=== PATIENT | female | born 1935 | race Caucasian/White ===

== ENCOUNTER 2016-06-25 | Outpatient (CLI) | payer MEDICARE, OTHER | END 2016-06-25 10:46 | disposition home or self-care (01) ==

== ENCOUNTER 2016-07-30 12:44 | Outpatient (CLI) | payer MEDICARE, OTHER | END 2016-07-30 12:45 | disposition home or self-care (01) | DX: M05.79 Rheumatoid arthritis with rheumatoid factor of multiple sites without organ or systems involvement (principal) ==

== ENCOUNTER 2016-09-02 14:00 | Outpatient (CLI) | payer MEDICARE, OTHER | END 2016-09-02 14:01 | disposition home or self-care (01) | DX: G30.9 Alzheimer's disease, unspecified (principal); G31.83 Neurocognitive disorder with Lewy bodies; F02.81 Dementia in other diseases classified elsewhere, unspecified severity, with behavioral disturbance; F05 Delirium due to known physiological condition; T38.0X5A Adverse effect of glucocorticoids and synthetic analogues, initial encounter; M06.9 Rheumatoid arthritis, unspecified; F41.9 Anxiety disorder, unspecified; Z79.899 Other long term (current) drug therapy; Z66 Do not resuscitate; Z91.81 History of falling; Z51.5 Encounter for palliative care ==

== ENCOUNTER 2016-11-14 11:30 | Outpatient (CLI) | payer MEDICARE, OTHER ==
--- NOTE | 2016-11-18 06:44 | CONSULTATION NOTE ---
DATE OF CONSULTATION: 11/14/2016 00:00:00 REQUESTING PROVIDER: Gregoria Gutiérrez MD TIME OF VISIT: 11:30-12 noon. TOPIC: Followup palliative care consult. Thank you, Dr. Gutiérrez, for asking the Palliative Care Consult Service to be involved in the care of y our patient. I am seeing this patient for a focused visit regarding patient's increased pain, most li roberto as an exacerbation of her RA, which is adding to her concern for safety risk and for her comfort . She is seen in her home setting at [facility] to better evaluate the situ ation. EXAM LIMITATIONS: The patient has severe short-term memory issues secondary to dementia. BRIEF HISTORY OF PRESENT ILLNESS: This is a 81-year-old woman who has had increasing cognitive declin e, diagnosed with dementia, severe anxiety, paranoia behavior and intermittent hallucinations. She w as most recently in August increased on her Seroquel by 25%; she is currently on 50 at 2 tabs b.i.d. C ontinues to have concern about her behaviors but somewhat improved. She has had increasing difficulty , though, with an escalation in pain. The patient is unable to really describe or participate in pain assessment, other than she is much more uncomfortable than when I have seen her before. It is hard f or her to get sitting to standing, she needs assistance. She has limited her activities because of he r pain, and this has happened before with a flare. She is due for her infliximab on 11/27/2016, so un clear if it is wearing off, or if she has, indeed, had an exacerbation. The patient is quite tender t o palpation over joints, particularly over her knees. She does have mobility of her upper arms. Her h ands are tender to touch as well. My understanding is she has had her dose recently increased. She do es have an effusion on her right hand in the first and second metatarsal. She remains on her methotre xate. ALLERGIES: NONE. CURRENT MEDICATIONS 1. Folic acid 1 mg daily. 2. Centrum Silver 1 tab daily. 3. Methotrexate 2.5 mg 4 tablets weekly. 4. Aspirin 81 mg daily. 5. Namenda 5 mg daily. 6. Zocor 10 mg at bedtime. 7. Levothyroxine 150 mcg daily. 8. Metoprolol tartrate 25 mg half tab b.i.d. 9. Alprazolam 0.5 mg 1 tab twice a day as needed for anxiety for a maximum of 4 tabs a day. 10. Seroquel 50 mg 2 tabs b.i.d. 0800 and 1500 hours. 11. Tylenol 325 mg 2 tabs t.i.d. as needed for pain. 12. Senna 8.6 mg 1 tab twice daily, hold for loose stools. 13. Imodium 2 mg tab after each loose stool up to 8 mg mass. 14. Ondansetron 4 mg ODT 1 tablet q.6 hours p.r.n. CODE STATUS: Patient is a DO NOT ATTEMPT RESUSCITATION, LIMITED INTERVENTIONS, DETERMINE THE USE OF A NTIBIOTICS WITH COMFORT THE GOAL, AND NO MEDICALLY ASSISTED NUTRITION. BRIEF SOCIAL HISTORY: The patient does live in an adult family home with her , who is 89 years old. She is there under [employer]. Her son checks on her a couple times a week. She does very much enjoy his visits, as well as her new grandchild. 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 She reports she always enjoys being useful and finds it quite difficult to be still. PERFORMANCE STATUS: The patient is unable to get from sitting to standing. Her gait is quite slow and labored. She has not had any recent falls, but she does need maximum assist. She is able to self-fee d. I would put her actually today at a palliative care performance status of 60%. REVIEW OF SYSTEMS This is limited. HEENT: She has mild hearing loss; wears glasses. CARDIOVASCULAR: Denies chest pain. RESPIRATORY: Denies shortness of breath. GASTROINTESTINAL: No history of constipation or diarrhea. GENITOURINARY: Occasional urinary incontinence. MUSCULOSKELETAL: As noted above. INTEGUMENTARY: No reported skin breakdown. NEUROLOGIC: Intermittent tremors. PSYCHIATRIC: She does still continue with intermittent paranoia. ENDOCRINE: Hypothyroidism. HEMATOLOGIC/IMMUNOLOGIC: No recent labs. PHYSICAL EXAMINATION GENERAL APPEARANCE: She is quite pale. She is able to interact, but she does have some wincing. HEENT: Her eyes appear normal on inspection, though slight periorbital edema. NECK: Trachea is midline. No JVD. RESPIRATORY: Breath sounds are clear. CARDIOVASCULAR: Her temperature is 96, O2 saturation is at 95% on room air, her pulse is elevated at 107, her blood pressure is 120/62. Her current weight is 167. ABDOMEN: Rounded, soft, nontender to palpation. SKIN: No reported signs or symptoms of skin breakdown. EXTREMITIES: As noted above, she does have some tenderness and effusion in her right hand. Her knees are tender to palpation as well. She does have difficulty with weightbearing. PALLIATIVE CARE DISCUSSION: I did follow up with the son in discussing weighing the benefits and minerva ens regarding his mother's discomfort. We are coming into a holiday weekend. I am quite hesitant to o rder the prednisone, given her pending Remicade infusion, so I did ask that he follow up and get her an appointment to see about a prednisone burst. In the meantime, we did agree for a temporary measure to put her on scheduled Tylenol, as well as have some hydrocodone a 1/2 tab every 6 hours as needed for breakthrough pain. This was an acceptable compromise, given the timing of this exacerbation. IMPRESSION: This is a 81-year-old woman who presents with mixed dementia in the context of her rapid decline, paranoid hallucinations and increased anxiety could be attributed to Lewy body as well as Al zheimer's. She continues to be a FAST 6c. Today she presents with an exacerbation of her rheumatoid a rthritis and uncontrolled pain. RECOMMENDATIONS/COUNSELING DONE 1. Dementia with behavioral disturbances. Her current regimen has been recently increased to Seroquel 50 mg 2 tabs b.i.d. She is having some anxiety and increased symptoms with her increased pain but n othing acute. 2. Pain secondary to rheumatoid arthritis flare. The Voltaren gel does help at times. She is quite co mfortable at rest but is much less active because of the pain. We will go ahead and schedule her, girish valencia she really is unable to ask for pain medication given her underlying dementia, acetaminophen 325 mg 2 tabs t.i.d., and provided a prescription for hydrocodone 5 mg/325 mg 1/2 tab every 6 hours as n eeded for severe breakthrough pain. Thank you, Dr. Gutiérrez, for asking the Palliative Care Consult Service to be involved with your patien t. I will follow up for a regular visit in a few weeks, but currently addressing her acute symptoms n eeds. Time spent 30 minutes, with greater than 50% of this done in counseling and coordination of care with the adult family home box truck owner operator, patient's son, and patient's plan of care. JOB #: [id number] EXT JOB #:[id number]
== END 2016-11-14 11:31 | disposition home or self-care (01) ==
LOC: PC 11:30
PROVIDERS: ATTEND Nurse Practitioner Adult Health
DX: Z51.5 Encounter for palliative care (principal); M06.9 Rheumatoid arthritis, unspecified; G30.9 Alzheimer's disease, unspecified; F02.81 Dementia in other diseases classified elsewhere, unspecified severity, with behavioral disturbance; Z79.899 Other long term (current) drug therapy; Z79.82 Long term (current) use of aspirin; Z66 Do not resuscitate

== ENCOUNTER 2017-03-03 13:00 | Outpatient (CLI) | payer MEDICARE, OTHER ==
--- NOTE | 2017-03-03 17:05 | PROVIDER PROGRESS NOTE ---
Palliative Care Follow Up - Referral Referring Provider: Gregoria Gutiérrez MD Time of Visit: 12:30 Referral setting: Home (Seen in home setting due to taxing and considerable effort required to leave the home secondary to impaired mobility related to severe pain in R knee from rheumatoid arthritis.) - Information Sources History obtained from: Patient, Caregiver Exam limitations: Clinical condition (dementia: confabulation) - History of Present Illness Update Brief HPI Update: This is an 82-year-old woman with dementia, anxiety, paranoia behavior and intermittent hallucinations. She is currently on Seroquel dosing of 100mg BID for the past six months. Timing was altered to 12:00pm and 6:00pm due to her becoming sleepy too early in the day. She often becomes agitated around 2-3pm and is being given alprazolam 0.25mg, which alleviates the behaviors. Apart from that, she has been stable and her only complaint is the pain in her R knee, which she says isnt constant, and is not currently painful. It can bother her when she ambulates, which she does independently, very slowly, with the walker. She reports that she sleeps beautifully and she also eats well. Caretaking staff reports that she repeatedly tries to go to bed throughout the day, and also tries to have her go to bed inappropriately early too. She can be confused about where she is and whether it is dark outside She is very social and interactive, does confabulate and repeats herself. She recognizes that she forgets things. She continues to receive Remicade ( infliximab) infusions every 6 weeks for rheumatoid arthritis. Information obtained from patient, caretaking staff at [facility], and EMR chart notes from [facility]. Social History - Living Situation Living arrangement: jail ([facility] in [place]) Living Situation: With spouse/s.o. (Her spouse lives in the same adult family home with her), With caregiver(s) Support System: Her son lives nearby. Medications/Allergies - Medications Home Medications: Ambulatory Orders Medication Instructions Recorded Confirmed Folic Acid 1 mg PO DAILY 10/26/14 03/03/17 Levothyroxine [Synthroid] 150 mcg PO DAILY 10/26/14 03/03/17 Methotrexate 6 tab PO Q7D 10/26/14 03/03/17 Simvastatin 10 mg PO QPM 10/26/14 03/03/17 Acetaminophen [Pain Relief] 625 mg ORAL TID PRN 01/18/15 03/03/17 Multivit-Min/FA/Lycopen/Lutein 1 tab ORAL DAILY 01/18/15 03/03/17 [Centrum Silver Tablet] Aspirin [Low Dose Aspirin EC] 81 mg PO DAILY 04/12/15 03/03/17 Memantine HCl [Namenda] 5 mg PO DAILY 04/12/15 03/03/17 Metoprolol Tartrate 12.5 mg PO BID 04/12/15 03/03/17 ALPRAZolam [Xanax] 0.25 mg PO BID MDD 4 tabs 08/16/15 03/03/17 Diclofenac Sodium [Voltaren] 4 gm PO QID PRN 03/03/17 03/03/17 HYDROcod/ACETAM 5/325 [[place] 5/325] 1 tab PO Q6H PRN 03/03/17 03/03/17 Ondansetron [Zuplenz] 4 mg PO Q6H PRN 03/03/17 03/03/17 Senna [Senokot] 8.6 mg PO BID 03/03/17 03/03/17 - Allergies Allergies/Adverse Reactions: Allergies Allergy/AdvReac Type Severity Reaction Status Date / Time ketamine AdvReac Unknown Verified 10/26/14 16:44 Review of Systems - Cardiovascular Cariovascular: denies: Chest pain, Exertional dyspnea - Respiratory Respiratory: denies: SOB at rest, SOB with exertion - Gastrointestinal Gastrointestinal: denies: Abdominal pain, Constipation, Nausea - Genitourinary Genitourinary: denies: Dysuria - Musculoskeletal Musculoskeletal: reports: Joint swelling (R knee) - Neurological Neurological: reports: Memory problems - Psychiatric Psychiatric: reports: Anxiety (reported by staff; denied by patient) Physical Examination - Vital Signs Temperature: 98.1 C Pulse Rate: 79 O2 Saturation: 99 Blood Pressure: 137/75 - Physical Exam General Appearance: positive: No acute distress, Alert Eyes Bilateral: positive: EOMI, No lid inflammation, Conjunctivae nml, No scleral icterus Neck: positive: No JVD, Trachea midline Respiratory: positive: Chest non-tender, No respiratory distress, Breath sounds nml Cardiovascular: positive: Regular rate & rhythm, No murmur Skin: positive: No symptoms Extremities: positive: No pedal edema, Other (Non-weight bearing on R leg) Neurologic/Psychiatric: positive: Sensation nml, Mood/affect nml, Disoriented to place, Disoriented to time Palliative Care - POLST Patient has POLST: Yes POLST Status: DNR, Limited Interventions Pain: Location (R knee, worse with movement) Drowsiness: None Nausea: None Anxiety: Mild (1-3) Dyspnea: None Anorexia: None Insomnia: Sleeps well Constipation: No Feelings of wellbeing/Perceived Quality of Life: Comment (Perceives she has a good quality of life here. Happy to be with her .) Performance Status: Current level of functioning: Able to [id number], ambulatory with walker, very slow gait, [id number] on R leg. Some increased anxiety often in late afternoons, which is alleviated with alprazolam 0.25mg as needed. She feeds herself, and requires help with bathing. Palliative Care Performance Status: 60% - Palliative Care Discussion: Who is present: The patient and myself. Nurse incubator operator was nearby Surrogate decision maker: Son/DPOA Mundo Pichardo [phone] Patient/Family understanding of the illness: Patient lacking full understanding of her dementia but does admit I forget things. Her son has an appropriate understanding and insight into her dementia. Most important goals: Focus on comfort and remaining together with her . 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 Encouraged patient to ask for pain medication when her knee is in pain. Will continue anxiety medication (alprazolam) as needed and not routine because, even though its administered more days than not, she doesn't need it daily, and the low dose does help sufficiently. Dont increase Seroquel because higher doses in the past increased her drowsiness. Impression and Recommendations - Palliative Care Impression: This is a pleasant 82-year-old woman who has dementia with behavior disturbances that are alleviated with Seroquel twice daily and alprazolam as needed. Her RA is adequately controlled with infliximab infusions, methotrexate and as needed [place] and Tylenol. Recommendations/Counseling Done: 1. Dementia with behaviors: Continue on Namenda and Seroquel 100mg BID at 12: 00 and 6:00pm. Seroquel dosage had been decreased 6 months ago due to drowsiness , so will not consider increasing it at this time for agitation episodes. 2. Anxiety: Using alprazolam around 2-3pm most days. Will keep it PRN and not routine because she is not needing it daily. 3. Rheumatoid arthritis: Remicade infusions every 6 weeks, next session . [place], Tylenol and Voltaren gel as needed for R knee pain. Time Spent: 30 minutes with greater than 50% of this done in counseling and coordination of care, weighing benefits and burdens of Seroquel and alprazolam dosing and timing.
== END 2017-03-03 13:01 | disposition home or self-care (01) ==
LOC: PC 13:00
PROVIDERS: ATTEND Nurse Practitioner
DX: Z51.5 Encounter for palliative care (principal); G30.9 Alzheimer's disease, unspecified; F02.81 Dementia in other diseases classified elsewhere, unspecified severity, with behavioral disturbance; F41.9 Anxiety disorder, unspecified; M06.9 Rheumatoid arthritis, unspecified; Z79.899 Other long term (current) drug therapy; Z66 Do not resuscitate
CPT/HCPCS: 99348

== ENCOUNTER 2017-08-06 08:00 | Outpatient (CLI) | payer MEDICARE, OTHER, MEDICAID ==
[2017-08-06 18:26] LABS: BILIRUBIN,URINE NEGATIVE (NEGATIVE); GLUCOSE, URINE (UA) NEGATIVE (NEGATIVE); KETONES,URINE (UA) NEGATIVE (NEGATIVE); LEUKOCYTE ESTERASE, URINE LARGE (NEGATIVE); NITRITE,URINE POSITIVE (NEGATIVE); OCCULT BLOOD,URINE SMALL (NEGATIVE); PROTEIN,URINE 100 mg/dL (NEGATIVE); UROBILINOGEN,URINE 0.2 (NORMAL) E.U./dL (NORMAL)
[2017-08-06 18:35] LABS: CLARITY,URINE CLOUDY (CLEAR)
[2017-08-06 18:36] LABS: BACTERIA,URINE Many /HPF (None Seen); RBC,URINE TNTC /HPF (0-5); SQUAMOUS EPITHELIAL CELL,UR RARE Squamous (<= Few)
== END 2017-08-06 08:01 | disposition home or self-care (01) ==
LOC: LAB.R 08:00
PROVIDERS: ATTEND Nurse Practitioner
DX: N39.0 Urinary tract infection, site not specified (principal)
CPT/HCPCS: 81001; 81003; 87086

== ENCOUNTER 2017-08-06 12:50 | Outpatient (CLI) | payer MEDICARE, OTHER, MEDICAID ==
--- NOTE | 2017-08-06 17:37 | CONSULTATION NOTE ---
Palliative Care Follow Up - Referral Referring Provider: Dr Gutiérrez Time of Visit: 08/06/2017. 12:50 - 13:05 Referral setting: Adult Family Home (Seen in home setting due to taxing and considerable effort required to leave the home secondary to advanced dementia.) - Information Sources Records reviewed: Previous records reviewed History/Review of Systems obtained from: Patient, Family, Caregiver Exam limitations: Clinical condition (Advanced dementia) - History of Present Illness Update Brief HPI Update: This is an 82-year-old woman with dementia, anxiety, paranoia behavior and intermittent hallucinations. She hasa h/o UTIs. She continues to enjoy relatively good physical health apart from her advanced dementia. She is articulate and sociable, always very pleasant, friendly, and cooperative during my assessment visits. She lives in the adult family home with her who has very advanced, end-stage Alzheimer's dementia and he is in the process of being transitioned into Hospice. She is always very aware of his presence and does speak of him during my assessments. Today the care-giving staff has reported strong smelling and dark colored urine with sediment. A clean catch urine sample was collected by the secretary to the vice president of the [facility] in a "hat" provided by palliative care and submitted for UA with C&S if indicated. The resident has a h/o UTIs, and was treated with empiric ciprofloxacin last April for a suspected UTI, with similar symptoms: dark odorous urine, urinary frequency, increased confusion. The resident has otherwise been very stable, with no behavioral or psychological issues. She has a good appetite, regular bowel movements, and reports she "sleeps like a log." Social History - Living Situation Living arrangement: Adult family home ([facility] in [place]) Living Situation: With spouse/s.o. (Spouse is also at the same [facility]), With caregiver(s) Support System: Son lives nearby. Medications/Allergies - Medications Home Medications: Ambulatory Orders Medication Instructions Recorded Confirmed Folic Acid 1 mg PO DAILY 10/26/14 06/26/17 Levothyroxine [Synthroid] 150 mcg PO DAILY 10/26/14 06/26/17 Methotrexate 6 tab PO Q7D 10/26/14 06/26/17 Simvastatin 10 mg PO QPM 10/26/14 06/26/17 Acetaminophen [Pain Relief] 625 mg ORAL TID PRN 01/18/15 06/26/17 Multivit-Min/FA/Lycopen/Lutein 1 tab ORAL DAILY 01/18/15 06/26/17 [Centrum Silver Tablet] Aspirin [Low Dose Aspirin EC] 81 mg PO DAILY 04/12/15 06/26/17 Memantine HCl [Namenda] 5 mg PO DAILY 04/12/15 06/26/17 Metoprolol Tartrate 12.5 mg PO BID 04/12/15 06/26/17 ALPRAZolam [Xanax] 0.5 mg PO BID PRN MDD 4 tabs 08/16/15 06/26/17 Diclofenac Sodium [Voltaren] 4 gm PO QID PRN 03/03/17 06/26/17 HYDROcod/ACETAM 5/325 [[place] 5/325] 1 tab PO Q6H PRN 03/03/17 06/26/17 Ondansetron [Zuplenz] 4 mg PO Q6H PRN 03/03/17 06/26/17 Senna [Senokot] 8.6 mg PO BID 03/03/17 06/26/17 Ciprofloxacin [Cipro] 500 mg PO BID MDD for 5 days only 05/07/17 06/26/17 Lactobacillus Acidophilus 1 each PO BID MDD for 21 days only 05/07/17 06/26/17 [Probiotic Acidophilus] - Allergies Allergies/Adverse Reactions: Allergies Allergy/AdvReac Type Severity Reaction Status Date / Time ketamine AdvReac Unknown Verified 10/26/14 16:44 Review of Systems - Constitutional Constitutional: reports: Weight stable. denies: Fatigue, Fever, Poor appetite - Cardiovascular Cardiovascular: denies: Chest pain, Edema, Exertional dyspnea, Decr. exercise tolerance - Respiratory Respiratory: denies: Cough, SOB at rest, SOB with exertion - Gastrointestinal Gastrointestinal: denies: Constipation, Diarrhea - Genitourinary Genitourinary: reports: Other (dark, odorous urine with sediment). denies: Dysuria - Musculoskeletal Musculoskeletal: denies: Transfer issues - Neurological Neurological: reports: Memory problems - Psychiatric Psychiatric: denies: Aggitation, Behavior disturbances - Endocrine Endocrine: reports: Hypothyroidism Physical Exam - Vital Signs Temperature: 97.8 F Pulse Rate: 65 O2 Saturation: 99 Blood Pressure: 127/90 - Physical Exam General Appearance: positive: No acute distress, Alert Eyes Bilateral: positive: Normal inspection ENT: positive: No signs of dehydration Neck: positive: No JVD, Trachea midline Cardiovascular: positive: Regular rate & rhythm, No murmur, No gallop Respiratory: positive: Chest non-tender, No respiratory distress, Other ( diminished in left lower lobe). negative: Rales Skin: positive: No symptoms Neurologic/Psychiatric: positive: Mood/affect nml. negative: Disoriented to place, Disoriented to time Palliative Care - POLST Patient has POLST: Yes POLST Status: DNR, Selective Treatment Pain: No pain Tiredness/Fatigue: None Drowsiness/Sedation: None Nausea: None Anxiety: None Anorexia: None Sleep: Sleeps well Constipation: No Feelings of wellbeing/Perceived Quality of Life: Good - Palliative Care Discussion: The patient reports she is feeling well and feels her quality of life is good here. I spoke to her son about the suspected UTI and he was in agreement with a urinary analysis and treating with antibiotics as indicated. The goal of care remains comfort focused and keeping the patient with her , who also resides at the [facility]. Unfortunately, his status has been declining and he will be transitioning to Hospice. This will likely initiate a complicated dynamic for the care givers, as well as the hospice team caring for the patient's , and by extension, her too, as his family. Impression and Recommendations - Palliative Care Impression: This is a pleasant 82-year-old woman with dementia with a history of behavior disturbance, currently stable and at baseline. She gives signs of a urinary tract infection and a UA w/C&s has been ordered. Also she is at risk for upset and grief as her , who lives in the [facility] with her and has been steadily declining in functionality and health, transitions into hospice and the end-of- life journey. Recommendations/Counseling Done: Dementia with h/o behaviors: Stable, with no behaviors. Continue memantine daily. Anxiety: Stable, at baseline. Continue alprazolam as needed. Abnormal urine: Clean catch taken, ordered UA with C&S if indicated. Have not started empiric antibiotics. Wait for culture results. Advanced care planning: POLST in place: DNR and selected. Focus is on comfort. Provide added support and monitoring since her is declining and transitioning into hospice and end-of-life. Time Spent: 15 minutes were spent with more than 50% of the time spent on counseling, education, and coordination of care.
== END 2017-08-06 12:51 | disposition home or self-care (01) ==
LOC: PC 12:50
PROVIDERS: ATTEND Nurse Practitioner
DX: Z51.5 Encounter for palliative care (principal); F03.91 Unspecified dementia, unspecified severity, with behavioral disturbance; F41.9 Anxiety disorder, unspecified; Z87.440 Personal history of urinary (tract) infections; Z79.82 Long term (current) use of aspirin; Z79.891 Long term (current) use of opiate analgesic; Z66 Do not resuscitate

== ENCOUNTER 2017-09-02 18:53 | Inpatient (IN) | payer MEDICARE, OTHER, MEDICAID ==
[~2017-09-02 18:53] MED LIST: METHOTREXATE 2.5 MG TABLET PO SCH
[2017-09-02] MEDS ORDERED: SODIUM CHLORIDE 0.9% 1,000 ML IV ONE (19:25)
[2017-09-02] MEDS ORDERED: cefTRIAXone 1 GM in SODIUM CHLORIDE 0.9% MINIBAG 100 ML IV STA (19:25)
[2017-09-02] MEDS ORDERED: ACETAMINOPHEN 325 MG TABLET PO STA (19:27)
--- NOTE | 2017-09-02 19:27 | ED Physician Documentation ---
History of Present Illness - Stated complaint Stated Complaint: SZ - Chief complaint Chief Complaint: General - History obtained from History obtained from: Patient, Family (son), EMS - History of Present Illness Timing: Other (Most of the history is from the son, she has been for sick for 3 days with increasing chills. I guess they thought might be seizure activity but it sounds more like just Rigors because she is awake during them saying she is cold. 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 - Present Medications Home Medications: Ambulatory Orders Medication Instructions Recorded Confirmed Folic Acid 1 mg PO DAILY 10/26/14 06/26/17 Levothyroxine [Synthroid] 150 mcg PO DAILY 10/26/14 06/26/17 Methotrexate 6 tab PO Q7D 10/26/14 06/26/17 Simvastatin 10 mg PO QPM 10/26/14 06/26/17 Acetaminophen [Pain Relief] 625 mg ORAL TID PRN 01/18/15 06/26/17 Multivit-Min/FA/Lycopen/Lutein 1 tab ORAL DAILY 01/18/15 06/26/17 [Centrum Silver Tablet] Aspirin [Low Dose Aspirin EC] 81 mg PO DAILY 04/12/15 06/26/17 Memantine HCl [Namenda] 5 mg PO DAILY 04/12/15 06/26/17 Metoprolol Tartrate 12.5 mg PO BID 04/12/15 06/26/17 ALPRAZolam [Xanax] 0.5 mg PO BID PRN MDD 4 tabs 08/16/15 06/26/17 Diclofenac Sodium [Voltaren] 4 gm PO QID PRN 03/03/17 06/26/17 HYDROcod/ACETAM 5/325 [[place] 5/325] 1 tab PO Q6H PRN 03/03/17 06/26/17 Ondansetron [Zuplenz] 4 mg PO Q6H PRN 03/03/17 06/26/17 Senna [Senokot] 8.6 mg PO BID 03/03/17 06/26/17 Ciprofloxacin [Cipro] 500 mg PO BID MDD for 5 days only 05/07/17 06/26/17 Lactobacillus Acidophilus 1 each PO BID MDD for 21 days only 05/07/17 06/26/17 [Probiotic Acidophilus] - Allergies Allergies/Adverse Reactions: Allergies Allergy/AdvReac Type Severity Reaction Status Date / Time ketamine AdvReac Unknown Verified 10/26/14 16:44 - POLST Patient has POLST: Yes PD ED PE NORMAL - Vitals Vital signs reviewed: Yes (Febrile, tachycardic, tachypneic) - General General: Other (She is alert cooperative and pleasant but unclear as to why she is here.) - HEENT HEENT: PERRL, EOMI - Neck Neck: Supple, no meningeal sign, No bony TTP - Cardiac Cardiac: RRR, No murmur - Respiratory Respiratory: Other (Tachypneic, diminished at both bases) - Abdomen Abdomen: Soft, Non tender - Back Back: No spinal TTP - Derm Derm: No rash - Extremities Extremities: No edema, No calf tenderness / cord - 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 Eye Opening: Spontaneous Motor: Obeys Commands Verbal: Confused GCS Score: 14 Results - Vitals Vitals: Vital Signs - 24 hr 09/02/17 09/02/17 09/02/17 18:55 20:03 20:46 Temperature 39.2 C H 39 C H 39 C H Heart Rate 114 H 11 L 106 H Respiratory 30 H 23 24 Rate Blood Pressure 139/64 H 147/66 H 138/81 H O2 Saturation 94 100 96 Oxygen O2 Source Room air - EKG (time done) 1857 Rate: Rate (enter#) (118) Rhythm: Sinus tachycardia (with PAC) [place]: Normal Intervals: Normal HI QRS: Normal Ischemia: Q waves (inferior) Computer interpretation: Agree with computer - Labs Labs: Laboratory Tests 09/02/17 09/02/17 09/02/17 19:19 19:19 19:19 WBC 15.4 H RBC 4.13 L Hgb 12.6 Hct 38.3 MCV 92.8 MCH 30.5 MCHC 32.8 RDW 14.5 Plt Count 271 MPV 7.9 Neut # 11.9 H Lymph # 1.8 [place] # 1.6 H Eos # 0.0 Baso # 0.0 Absolute Nucleated RBC 0.01 Nucleated RBC % 0.0 Sodium 133 L Potassium 3.5 Chloride 99 L Carbon Dioxide 22 Anion Gap 12.0 BUN 23 H Creatinine 1.0 Estimated GFR (MDRD) 53 L Glucose 162 H Lactic Acid 1.6 Calcium 8.5 Total Bilirubin 0.7 AST 51 H ALT 54 Alkaline Phosphatase 66 Total Protein 7.6 Albumin 3.3 Globulin 4.3 H Albumin/Globulin Ratio 0.8 L Lipase 14 L Urine Color Urine Clarity Urine pH Ur Specific [place] Urine Protein Urine Glucose (UA) Urine Ketones Urine Occult Blood Urine Nitrite Urine Bilirubin Urine Urobilinogen Ur Leukocyte Esterase Ur Microscopic Review Urine Culture Comments Influenza A (Rapid) Influenza B (Rapid) Influenza Types A,B Ag 09/02/17 09/02/17 19:25 19:40 WBC RBC Hgb Hct MCV MCH MCHC RDW Plt Count MPV Neut # Lymph # [place] # Eos # Baso # Absolute Nucleated RBC Nucleated RBC % Sodium Potassium Chloride Carbon Dioxide Anion Gap BUN Creatinine Estimated GFR (MDRD) Glucose Lactic Acid Calcium Total Bilirubin AST ALT Alkaline Phosphatase Total Protein Albumin Globulin Albumin/Globulin Ratio Lipase Urine Color YELLOW Urine Clarity CLEAR Urine pH 5.0 Ur Specific [place] 1.015 Urine Protein NEGATIVE Urine Glucose (UA) NEGATIVE Urine Ketones NEGATIVE Urine Occult Blood NEGATIVE Urine Nitrite NEGATIVE Urine Bilirubin NEGATIVE Urine Urobilinogen 0.2 (NORMAL) Ur Leukocyte Esterase NEGATIVE Ur Microscopic Review NOT INDICATED Urine Culture Comments NOT INDICATED Influenza A (Rapid) POSITIVE H Influenza B (Rapid) Negative Influenza Types A,B Ag + H - Rads (name of study) 1v chest Radiology: EMP read contemporaneously (When your scarring at the base without acute disease) PD MEDICAL DECISION MAKING - ED course ED course: 82-year-old woman presents with signs of sepsis including high fever, tachycardia and tachypnea. Potential clinical pneumonia but chest x-ray grossly clear. Urine okay. She does have a leukocytosis and a positive influenza swab. I do not think the flu swab in and of itself explains her clinical picture entirety, I suspect there is a brewing occult pneumonia. She was administered rectal Tylenol and oral Tamiflu, IV antibiotics after cultures. Given the potential unstable vital signs she will be admitted for further evaluation and treatment and a call to the hospitalist was placed at 8: 28 PM. Departure - Departure Disposition: [facility] DC/Xfer Clinical Impression: Influenza Sepsis Qualifiers: Sepsis type: sepsis due to unspecified organism Qualified Code(s): A41.9 - Sepsis, unspecified organism Condition: Serious
[2017-09-02 19:30] LABS: BASOPHILS % (AUTO) 0.3 %; EOSINOPHILS % (AUTO) 0.3 %; HGB - HEMOGLOBIN 12.6 g/dL (12.0-16.0); LYMPHOCYTES # (AUTO) 1.8 10^3/uL (1.5-3.5); LYMPHOCYTES % (AUTO) 11.4 %; MEAN CORPUSCULAR HEMOGLOBIN 30.5 pg (27.0-31.0); MEAN CORPUSCULAR HGB CONC 32.8 g/dL (32.0-36.0); MEAN CORPUSCULAR VOLUME 92.8 fL (81.0-99.0); MEAN PLATELET VOLUME 7.9 fL (7.9-10.8); MONOCYTES # (AUTO) 1.6 10^3/uL (0.0-1.0); MONOCYTES % (AUTO) 10.6 %; NEUTROPHILS # (AUTO) 11.9 10^3/uL (1.5-6.6); NEUTROPHILS % (AUTO) 77.4 %; PLT - PLATELET COUNT 271 10^3/uL (130-450); RED BLOOD COUNT 4.13 10^6/uL (4.20-5.40); RED CELL DISTRIBUTION WIDTH 14.5 % (12.0-15.0); WHITE BLOOD COUNT 15.4 x10^3/uL (4.8-10.8)
[2017-09-02 19:45] LABS: ALBUMIN 3.3 g/dL (3.2-5.5); ALBUMIN/GLOBULIN RATIO 0.8 (1.0-2.2); BILIRUBIN,TOTAL 0.7 mg/dL (0.2-1.0); CALCIUM 8.5 mg/dL (8.5-10.3); TOTAL PROTEIN 7.6 g/dL (6.7-8.2)
[2017-09-02] MEDS ORDERED: OSELTAMIVIR 75 MG CAPSULE PO STA (19:51)
[2017-09-02] MEDS ORDERED: ACETAMINOPHEN 650 MG SUPP PR STA (19:51)
[2017-09-02 20:03] LABS: BILIRUBIN,URINE NEGATIVE (NEGATIVE); GLUCOSE, URINE (UA) NEGATIVE (NEGATIVE); KETONES,URINE (UA) NEGATIVE (NEGATIVE); LEUKOCYTE ESTERASE, URINE NEGATIVE (NEGATIVE); NITRITE,URINE NEGATIVE (NEGATIVE); OCCULT BLOOD,URINE NEGATIVE (NEGATIVE); PROTEIN,URINE NEGATIVE (NEGATIVE); UROBILINOGEN,URINE 0.2 (NORMAL) E.U./dL (NORMAL)
--- NOTE | 2017-09-02 20:03 | XRAY Report ---
EXAM: CHEST RADIOGRAPHY EXAM DATE: 09/02/2017 07:50 PM. CLINICAL HISTORY: Fever. COMPARISON: 10/01/2015. TECHNIQUE: 1 view. FINDINGS: Lungs/Pleura: No consolidative process. Lung volumes appear normal and symmetric. There is linear sca rring at the left base. Trachea is midline. Mediastinum: The heart size is normal. Other: Surgical clips overlie left axilla and chest. IMPRESSION: 1. Linear scarring at left base. No acute cardiopulmonary abnormality. [facility] Referring Provider Line: [phone] SITE ID: [id number]
--- NOTE | 2017-09-02 20:03 | XRAY Preliminary Report ---
Exam: XR CHEST 1 VIEW X-RAY IMPRESSION: 1. Linear scarring at left base. No acute cardiopulmonary abnormality. [facility] SITE ID: [id number]
[2017-09-02 20:04] LABS: CLARITY,URINE CLEAR (CLEAR)
[2017-09-02] MEDS ORDERED: VANCOMYCIN INJ 1.5 GM in SODIUM CHLORIDE 0.9% 500 ML IV STA (20:26)
[2017-09-02] MEDS ORDERED: VANCOMYCIN 1 GM VIAL ONE (20:41)
[2017-09-02] MEDS ORDERED: ACETAMINOPHEN 325 MG TABLET PO PRN (21:13)
[2017-09-02] MEDS ORDERED: ONDANSETRON 4 MG/2 ML VIAL IVP PRN (21:13)
[2017-09-02] MEDS ORDERED: SODIUM CHLORIDE FLUSH 0.9% 10 ML SYRINGE IVP PRN (21:13)
[2017-09-02] MEDS: METOPROLOL TARTRATE 25 MG TABLET PO SCH (22:39)
[2017-09-02] MEDS: SODIUM CHLORIDE FLUSH 0.9% 10 ML SYRINGE IVP SCH (22:40)
[2017-09-02] MEDS ORDERED: VANCOMYCIN PER PHARMACY 0.0001 GM in SODIUM CHLORIDE 0.9% 250 ML IV PRN (23:45)
--- NOTE | 2017-09-03 00:50 | HISTORY & PHYSICAL EXAMINATION ---
DATE OF SERVICE: 09/02/2017 Physician: Arlin Fisher MD HISTORY OF PRESENT ILLNESS: This is an 82-year-old white female with a history of dementia, on Namenda, lives at an assisted living facility, history of hypertension, rheumatoid arthritis, on methotrexate. The patient was brought to the emergency room at the advice of the assisted living staff who thought the patient was having a seizure, but in fact, she was having rigors and was completely awake during the event and telling people she was chilled. In the emergency room, she was found to have a wet productive cough, was tachypneic at a rate of 30, tachycardic at a rate of 120 and had a fever of 39.8. The patient could not give any other detailed history. A family member was present and did not describe any other new symptoms. REVIEW OF SYSTEMS: A comprehensive review of systems was performed using chart review, and the pertinent positives are as above. ALLERGIES: KETAMINE. MEDICATIONS AT HOME 1. Metoprolol tartrate 12.5 p.o. b.i.d. 2. Methotrexate 6 mg p.o. weekly. 3. Namenda 5 mg p.o. daily. 4. Synthroid 150 mcg p.o. daily. 5. Probiotic acidophilus b.i.d. 6. Folic acid 1 mg p.o. daily. 7. Baby aspirin p.o. daily. 8. Xanax 0.5 mg p.o. b.i.d. p.r.n. anxiety. 9. Simvastatin 10 mg p.o. every evening. 10. Senna every day. 11. Ondansetron p.r.n. nausea. 12. Multivitamin with lutein and lycopene daily. 13. Vian every 6 hours p.r.n. pain. 14. Voltaren 4 grams p.o. q.i.d. p.r.n. 15. Cipro for 5 days for a UTI. 16. Tylenol p.r.n. pain. FAMILY HISTORY: No inherited diseases. SOCIAL HISTORY: The patient never smoked according to the chart, uses no alcohol according to the chart. PHYSICAL EXAMINATION GENERAL: An elderly white female, not cachectic, in mild respiratory distress. VITAL SIGNS: Blood pressure 158/91, pulse of 106, down to 95, in sinus rhythm, temperature 39 on presentation, room air saturation 96%. HEENT: Unremarkable. NECK: Without JVD or carotid bruits. LUNGS: Clear. HEART: Sounds distant. ABDOMEN: Soft. Normal bowel sounds. EXTREMITIES: Without clubbing, cyanosis or edema. NEUROLOGIC: Confused but moving all extremities and communicative and follows commands. LABORATORY DATA: Sodium 133, potassium 3.5, BUN 23, creatinine 1.0, lactic acid normal at 1.6, AST 51, ALT 54, normal bilirubin at 0.7, normal lipase. White blood count 50.4 with a left shift, hemoglobin 12.6, platelet count normal at 271. No INR was done. Urinalysis within normal limits. Serology was positive for influenza A. CHEST X-RAY: No active pulmonary disease but linear scarring at the left base. EKG: Sinus tachycardia at a rate of 118. Q-waves are seen in leads III and aVF , consistent with an old inferior LA. There is baseline motion artifact and therefore T waves are difficult to assess. IMPRESSION/DIAGNOSES 1. Sepsis by virtue of high fever, tachycardia and tachypnea. 2. Healthcare-associated pneumonia versus acute bronchitis, in a patient with immunocompromised state and on antibiotics recently for a urinary tract infection. 3. Influenza A, acute. 4. Dementia. 5. Hypertension. 6. Rheumatoid arthritis, on methotrexate, therefore immunocompromised. PLAN: Place the patient on telemetry, watching for heart rate problems. Telemetry can be stopped after 24 hours if stable. Begin IV hydration as there is prerenal azotemia, suggesting dehydration. Begin IV antibiotics for healthcare-associated pulmonary infection and will therefore use aztreonam and vancomycin IV. Obtain sputum culture. Blood culture was already done in the emergency room before giving empiric ceftriaxone IV and vancomycin IV. Follow up chest x-ray in 24-48 hours for any development of consolidation with hydration or suspicion of aspiration pneumonia. The above antibiotics should cover a recent UTI; therefore, ciprofloxacin orally will be stopped. Begin Tamiflu orally. Continue with her treatment for dementia, hypertension and rheumatoid arthritis DVT prophylaxis: Sequential compression devices. CODE STATUS: DO NOT RESUSCITATE, according to a POLST that is in the EHR. ATTESTATION: The patient is expected to be discharged or transferred to another facility within 96 hours: Yes. TD: 09/03/2017 00:49 [facility]
[2017-09-03] MEDS: DEXTROSE 5%-0.9% NACL 1,000 ML IV SCH ×2 (01:36→21:52)
[2017-09-03] MEDS: AZTREONAM 1 GM in SODIUM CHLORIDE 0.9% MINIBAG 100 ML IV SCH ×2 (01:37→14:08)
[2017-09-03] MEDS: SODIUM CHLORIDE FLUSH 0.9% 10 ML SYRINGE IVP SCH ×3 (01:37→18:41)
[2017-09-03 04:37] LABS: BASOPHILS % (AUTO) 0.3 %; EOSINOPHILS # (AUTO) 0.1 10^3/uL (0.0-0.7); EOSINOPHILS % (AUTO) 0.7 %; LYMPHOCYTES # (AUTO) 2.6 10^3/uL (1.5-3.5); LYMPHOCYTES % (AUTO) 17.4 %; MEAN CORPUSCULAR HEMOGLOBIN 29.8 pg (27.0-31.0); MEAN CORPUSCULAR HGB CONC 31.8 g/dL (32.0-36.0); MEAN CORPUSCULAR VOLUME 93.7 fL (81.0-99.0); MONOCYTES # (AUTO) 1.5 10^3/uL (0.0-1.0); MONOCYTES % (AUTO) 10.1 %; NEUTROPHILS # (AUTO) 10.8 10^3/uL (1.5-6.6); NEUTROPHILS % (AUTO) 71.5 %; PLT - PLATELET COUNT 232 10^3/uL (130-450); RED BLOOD COUNT 3.67 10^6/uL (4.20-5.40); RED CELL DISTRIBUTION WIDTH 14.5 % (12.0-15.0); WHITE BLOOD COUNT 15.1 x10^3/uL (4.8-10.8)
[2017-09-03 04:38] LABS: CALCIUM 7.8 mg/dL (8.5-10.3); CREATININE 0.8 mg/dL (0.4-1.0); MAGNESIUM 1.6 mg/dL (1.7-2.8)
[2017-09-03] MEDS ORDERED: AZTREONAM 2 GM in SODIUM CHLORIDE 0.9% MINIBAG 100 ML IV SCH (06:00)
[2017-09-03] MEDS: LEVOTHYROXINE 100 MCG TABLET PO SCH (06:33)
[2017-09-03] MEDS ORDERED: LACTOBACILLUS ACIDOPHILUS PO SCH (09:00)
[2017-09-03] MEDS: POLYETHYLENE GLYCOL 3350 17 GM PACKET PO SCH (10:05)
[2017-09-03] MEDS: LACTOBACILLUS RHAMNOSUS GG CAPSULE PO SCH ×2 (10:18→21:45)
[2017-09-03] MEDS: METOPROLOL TARTRATE 25 MG TABLET PO SCH ×2 (10:19→21:44)
[2017-09-03] MEDS: FAMOTIDINE 20 MG TABLET PO SCH (10:19)
[2017-09-03] MEDS: FOLIC ACID 1 MG TABLET PO SCH (10:19)
[2017-09-03] MEDS: OSELTAMIVIR 30 MG CAPSULE PO SCH ×2 (10:19→21:45)
[2017-09-03] MEDS: MEMANTINE 5 MG TABLET PO SCH (10:19)
[2017-09-03] MEDS: ASPIRIN EC 81 MG TABLET PO SCH (10:19)
[2017-09-03] MEDS: VANCOMYCIN INJ 1 GM in SODIUM CHLORIDE 0.9% 250 ML IV SCH ×2 (10:55→21:45)
[2017-09-03] MEDS ORDERED: METHOTREXATE 2.5 MG TABLET PO SCH (14:00)
[2017-09-03] MEDS: ALPRAZolam 0.25 MG TABLET PO PRN (14:07)
[2017-09-03] MEDS ORDERED: VANCOMYCIN INJ 1.25 GM in SODIUM CHLORIDE 0.9% 250 ML IV SCH (16:00)
--- NOTE | 2017-09-03 16:47 | PROVIDER PROGRESS NOTE ---
Subjective - Prog Note Date Prog Note Date: 09/03/17 Prog Note Time: 15:50 - Subjective Pt reports feeling: No change (The patient has advanced dementia and cannot remember how she felt yesterday. She denies any shortness of breath, fever or chills. She denies any pain.) Current Medications - Current Medications Current Medications: Acetaminophen, alprazolam, aspirin, aztreonam,Pepcid, folic acid, lactobacillus , levothyroxine, memantine, methotrexate, metoprolol, ondansetron,Tamiflu, polyethylene glycol, sodium chloride, vancomycin Objective - Vital Signs/Intake & Output Reviewed Vital Signs: Yes Vital Signs: Vital Signs x48h Temp Pulse Resp BP BP Pulse Ox 09/03/17 15:57 37.7 C H 86 24 118/59 L 94 09/03/17 10:19 113/53 L Intake & Output: Intake & Output 08/31/17 09/01/17 09/02/17 09/03/17 23:59 23:59 23:59 23:59 Intake Total 950 Balance 950 - Objective General Appearance: positive: No acute distress, Alert, Anxious Eyes Bilateral: positive: Normal inspection, PERRL, EOMI, No lid inflammation, Conjunctivae nml, No scleral icterus ENT: positive: ENT inspection nml, Pharynx nml, No signs of dehydration Neck: positive: Nml inspection, Thyroid nml, No JVD, Trachea midline. negative : Thyromegaly Respiratory: positive: Chest non-tender, No respiratory distress, Rales. negative: Wheezes, Rhonchi Cardiovascular: positive: Regular rate & rhythm, No murmur, No gallop, Irregularly irregular, Extrasystoles Abdomen: positive: Non-tender, No organomegaly, Nml bowel sounds, No distention. negative: Tenderness Back: positive: Nml inspection. negative: CVA tenderness (R), CVA tenderness (L ) Skin: positive: Color nml, No rash, Warm, Dry. negative: Cyanosis Extremities: positive: Non-tender, Full ROM, Nml appearance, No pedal edema Neurologic/Psychiatric: positive: CN's nml (2-12), Motor nml, Sensation nml, Disoriented to place, Disoriented to time - Lab Results Fish [place]ones: 09/03/17 04:10 09/03/17 04:10 Other Labs: Lab Results x24hrs 09/03/17 09/03/17 Range/Units 04:10 04:10 WBC 15.1 H (4.8-10.8) x10^3/uL RBC 3.67 L (4.20-5.40) 10^6/uL Hgb 11.0 L (12.0-16.0) g/dL Hct 34.4 L (37.0-47.0) % MCV 93.7 (81.0-99.0) fL MCH 29.8 (27.0-31.0) pg MCHC 31.8 L (32.0-36.0) g/dL RDW 14.5 (12.0-15.0) % Plt Count 232 (130-450) 10^3/uL MPV 8.0 (7.9-10.8) fL Neut # 10.8 H (1.5-6.6) 10^3/uL Lymph # 2.6 (1.5-3.5) 10^3/uL [place] # 1.5 H (0.0-1.0) 10^3/uL Eos # 0.1 (0.0-0.7) 10^3/uL Baso # 0.0 (0.0-0.1) 10^3/uL Absolute Nucleated RBC 0.00 x10^3/uL Nucleated RBC % 0.0 /100WBC Sodium 137 (135-145) mmol/L Potassium 3.6 (3.5-5.0) mmol/L Chloride 106 (101-111) mmol/L Carbon Dioxide 22 (21-32) mmol/L Anion Gap 9.0 (6-13) BUN 18 (6-20) mg/dL Creatinine 0.8 (0.4-1.0) mg/dL Estimated GFR (MDRD) 69 L (>89) Glucose 111 H (70-100) mg/dL Calcium 7.8 L (8.5-10.3) mg/dL Magnesium 1.6 L (1.7-2.8) mg/dL - Diagnostic Imaging Diagnostic Imaging Comments: EXAM: CHEST RADIOGRAPHY EXAM DATE: 09/02/2017 07:50 PM. CLINICAL HISTORY: Fever. COMPARISON: 10/01/2015. TECHNIQUE: 1 view. FINDINGS: Lungs/Pleura: No consolidative process. Lung volumes appear normal and symmetric. There is linear scarring at the left base. Trachea is midline. Mediastinum: The heart size is normal. Other: Surgical clips overlie left axilla and chest. IMPRESSION: 1. Linear scarring at left base. No acute cardiopulmonary abnormality. Assessment/Plan - Problem List (1) Influenza Impression: The patient has a productive cough, is flu +, will continue Tamilflu BID. (2) Dementia Impression: Advanced. The patient has had a stage of her dementia where aspirating is not unexpected. We will do a swallow study. (3) Hypertension Impression: Well-managed (126/60). Continue present care (metoprolol).
--- NOTE | 2017-09-03 20:31 | XRAY Preliminary Report ---
Exam: XR CHEST 2 VIEW X-RAY IMPRESSION: 1. Bibasilar dependent densities which may reflect dependent atelectasis, very small pleural effusion s, or basilar pneumonia. [facility] SITE ID: [id number]
--- NOTE | 2017-09-03 20:32 | XRAY Report ---
EXAM: CHEST RADIOGRAPHY EXAM DATE: 09/03/2017 07:06 PM. CLINICAL HISTORY: Cough. COMPARISON: 09/02/2017. TECHNIQUE: 2 views. FINDINGS: Lungs/Pleura: There is a patchy airspace density within the posterior left lower lobe. There is minim al blunting of the posterior right costophrenic angle. The upper lung zones are clear. There is no pn eumothorax. Mediastinum: Heart size is normal. Trachea is midline. Other: None. IMPRESSION: 1. Bibasilar dependent densities which may reflect dependent atelectasis, very small pleural effusion s, or basilar pneumonia. [facility] Referring Provider Line: [phone] SITE ID: [id number]
[2017-09-04] MEDS: SODIUM CHLORIDE FLUSH 0.9% 10 ML SYRINGE IVP SCH ×3 (01:20→21:50)
[2017-09-04] MEDS: AZTREONAM 1 GM in SODIUM CHLORIDE 0.9% MINIBAG 100 ML IV SCH ×2 (01:20→13:25)
[2017-09-04] MEDS: LEVOTHYROXINE 100 MCG TABLET PO SCH (05:43)
[2017-09-04 08:35] LABS: HGB - HEMOGLOBIN 10.6 g/dL (12.0-16.0); MEAN CORPUSCULAR HEMOGLOBIN 30.8 pg (27.0-31.0); MEAN CORPUSCULAR HGB CONC 33.3 g/dL (32.0-36.0); MEAN CORPUSCULAR VOLUME 92.4 fL (81.0-99.0); MEAN PLATELET VOLUME 7.9 fL (7.9-10.8); RED BLOOD COUNT 3.45 10^6/uL (4.20-5.40); RED CELL DISTRIBUTION WIDTH 14.4 % (12.0-15.0); WHITE BLOOD COUNT 12.7 x10^3/uL (4.8-10.8)
[2017-09-04 08:45] LABS: CALCIUM 7.9 mg/dL (8.5-10.3); CREATININE 0.7 mg/dL (0.4-1.0)
[2017-09-04 08:52] LABS: VANCOMYCIN,TROUGH 16.6 ug/mL (5.0-15.0)
[2017-09-04] MEDS: FOLIC ACID 1 MG TABLET PO SCH (09:46)
[2017-09-04] MEDS: MEMANTINE 5 MG TABLET PO SCH (09:46)
[2017-09-04] MEDS: LACTOBACILLUS RHAMNOSUS GG CAPSULE PO SCH ×2 (09:46→22:12)
[2017-09-04] MEDS: ASPIRIN EC 81 MG TABLET PO SCH (09:47)
[2017-09-04] MEDS: FAMOTIDINE 20 MG TABLET PO SCH (09:47)
[2017-09-04] MEDS: OSELTAMIVIR 30 MG CAPSULE PO SCH ×2 (09:47→22:09)
[2017-09-04] MEDS: METOPROLOL TARTRATE 25 MG TABLET PO SCH ×2 (09:47→22:09)
[2017-09-04] MEDS: POLYETHYLENE GLYCOL 3350 17 GM PACKET PO SCH (09:49)
[2017-09-04] MEDS: VANCOMYCIN INJ 1 GM in SODIUM CHLORIDE 0.9% 250 ML IV SCH ×2 (09:51→22:12)
[2017-09-04] MEDS: ALPRAZolam 0.25 MG TABLET PO PRN (13:24)
[2017-09-04] MEDS: DEXTROSE 5%-0.9% NACL 1,000 ML IV SCH (15:23)
--- NOTE | 2017-09-04 18:15 | PROVIDER PROGRESS NOTE ---
Subjective - Prog Note Date Prog Note Date: 09/04/17 Prog Note Time: 14:00 - Subjective Pt reports feeling: No change (The patient is significantly demented and cannot compare date today because of her poor memory. According to the staff she slept well last night, and has been eating well. She moved her bowels this morning. She is not short of breath at rest and has not had any fevers or chills.) Current Medications - Current Medications Current Medications: Acetaminophen, alprazolam, aspirin, aztreonam,Pepcid, folic acid, lactobacillus , levothyroxine, memantine, methotrexate, metoprolol, ondansetron,Tamiflu, polyethylene glycol, sodium chloride, vancomycin Objective - Vital Signs/Intake & Output Reviewed Vital Signs: Yes Vital Signs: Vital Signs x48h Temp Pulse Resp BP Pulse Ox 09/04/17 15:35 37.4 C 76 22 154/74 H 98 Intake & Output: Intake & Output 09/01/17 09/02/17 09/03/17 09/04/17 23:59 23:59 23:59 23:59 Intake Total 2401 2149 Balance 2401 2149 - Objective General Appearance: positive: No acute distress, Alert Eyes Bilateral: positive: Normal inspection, PERRL, EOMI, No lid inflammation, Conjunctivae nml, No scleral icterus ENT: positive: ENT inspection nml, Pharynx nml, No signs of dehydration Neck: positive: Nml inspection, Thyroid nml, No JVD, Trachea midline. negative : Thyromegaly Respiratory: positive: Chest non-tender, No respiratory distress, Breath sounds nml, Rales. negative: Wheezes, Rhonchi Cardiovascular: positive: Regular rate & rhythm, No murmur, No gallop Abdomen: positive: Non-tender, No organomegaly, Nml bowel sounds, No distention. negative: Guarding, Rebound Back: positive: Nml inspection. negative: CVA tenderness (R), CVA tenderness (L ) Skin: positive: Color nml, No rash, Warm, Dry. negative: Cyanosis Extremities: positive: Non-tender, Full ROM, Nml appearance, No pedal edema Neurologic/Psychiatric: positive: CN's nml (2-12), Motor nml, Sensation nml, Mood/affect nml, Disoriented to place, Disoriented to time - Lab Results Fish [place]ones: 09/04/17 08:20 09/04/17 08:20 Other Labs: Lab Results x24hrs 09/04/17 09/04/17 09/04/17 Range/Units 08:20 08:20 08:20 WBC 12.7 H (4.8-10.8) x10^3/uL RBC 3.45 L (4.20-5.40) 10^6/uL Hgb 10.6 L (12.0-16.0) g/dL Hct 31.9 L (37.0-47.0) % MCV 92.4 (81.0-99.0) fL MCH 30.8 (27.0-31.0) pg MCHC 33.3 (32.0-36.0) g/dL RDW 14.4 (12.0-15.0) % Plt Count 230 (130-450) 10^3/uL MPV 7.9 (7.9-10.8) fL Sodium 138 (135-145) mmol/L Potassium 3.3 L (3.5-5.0) mmol/L Chloride 111 (101-111) mmol/L Carbon Dioxide 21 (21-32) mmol/L Anion Gap 6.0 (6-13) BUN 14 (6-20) mg/dL Creatinine 0.7 (0.4-1.0) mg/dL Estimated GFR (MDRD) 81 L (>89) Glucose 112 H (70-100) mg/dL Calcium 7.9 L (8.5-10.3) mg/dL Last Dose Date 09/03/17 Last Dose Time 2327 Vancomycin Trough 16.6 H (5.0-15.0) ug/mL - Diagnostic Imaging Diagnostic Imaging Results: positive: Final report reviewed Diagnostic Imaging Comments: EXAM: CHEST RADIOGRAPHY EXAM DATE: 09/03/2017 07:06 PM. CLINICAL HISTORY: Cough. COMPARISON: 09/02/2017. TECHNIQUE: 2 views. FINDINGS: Lungs/Pleura: There is a patchy airspace density within the posterior left lower lobe. There is minimal blunting of the posterior right costophrenic angle. The upper lung zones are clear. There is no pneumothorax. Mediastinum: Heart size is normal. Trachea is midline. Other: None. IMPRESSION: 1. Bibasilar dependent densities which may reflect dependent atelectasis, very small pleural effusions, or basilar pneumonia. EXAM: CHEST RADIOGRAPHY EXAM DATE: 09/02/2017 07:50 PM. CLINICAL HISTORY: Fever. COMPARISON: 10/01/2015. TECHNIQUE: 1 view. FINDINGS: Lungs/Pleura: No consolidative process. Lung volumes appear normal and symmetric. There is linear scarring at the left base. Trachea is midline. Mediastinum: The heart size is normal. Other: Surgical clips overlie left axilla and chest. IMPRESSION: 1. Linear scarring at left base. No acute cardiopulmonary abnormality. Assessment/Plan - Problem List (1) Influenza Impression: The patient is influenza A positive, and is breathing a little bit easier. He is receiving Tamiflu twice a day. She is in good spirits and has no new complaints. I had a long discussion with her son and explained what was happening with the patient to him. He also mentioned that the patient has been pocketing her food and this is a sign that aspiration may be coming in the near future. Patient did have a swallow study and was able to swallow thin liquids without trouble. (2) Dementia Impression: The patient has a fast scale score of 6E. She has begun pocketing her food however did pass her swallow study in that she is able to swallow thin liquids. (3) Hypertension Impression: Well-managed (115/60). Continue present care (metoprolol). (4) Chronic rheumatic arthritis Impression: Continue methotrexate while in the hospital.
[2017-09-05] MEDS: DEXTROSE 5%-0.9% NACL 1,000 ML IV SCH (02:19)
[2017-09-05] MEDS: SODIUM CHLORIDE FLUSH 0.9% 10 ML SYRINGE IVP SCH ×3 (02:19→17:37)
[2017-09-05] MEDS: AZTREONAM 1 GM in SODIUM CHLORIDE 0.9% MINIBAG 100 ML IV SCH ×2 (03:12→14:25)
[2017-09-05 05:25] LABS: CALCIUM 7.8 mg/dL (8.5-10.3); CREATININE 0.6 mg/dL (0.4-1.0)
[2017-09-05 05:29] LABS: HGB - HEMOGLOBIN 10.6 g/dL (12.0-16.0); MEAN CORPUSCULAR HEMOGLOBIN 30.4 pg (27.0-31.0); MEAN CORPUSCULAR VOLUME 92.1 fL (81.0-99.0); MEAN PLATELET VOLUME 8.1 fL (7.9-10.8); RED BLOOD COUNT 3.5 10^6/uL (4.20-5.40); RED CELL DISTRIBUTION WIDTH 14.6 % (12.0-15.0); WHITE BLOOD COUNT 12.7 x10^3/uL (4.8-10.8)
[2017-09-05] MEDS: LEVOTHYROXINE 100 MCG TABLET PO SCH (07:01)
[2017-09-05] MEDS: METOPROLOL TARTRATE 25 MG TABLET PO SCH ×2 (08:35→21:35)
[2017-09-05] MEDS: OSELTAMIVIR 30 MG CAPSULE PO SCH ×2 (08:35→21:35)
[2017-09-05] MEDS: LACTOBACILLUS RHAMNOSUS GG CAPSULE PO SCH ×2 (08:35→21:35)
[2017-09-05] MEDS: FOLIC ACID 1 MG TABLET PO SCH (08:37)
[2017-09-05] MEDS: VANCOMYCIN INJ 1 GM in SODIUM CHLORIDE 0.9% 250 ML IV SCH (08:37)
[2017-09-05] MEDS: MEMANTINE 5 MG TABLET PO SCH (08:37)
[2017-09-05] MEDS: FAMOTIDINE 20 MG TABLET PO SCH (08:37)
[2017-09-05] MEDS: POLYETHYLENE GLYCOL 3350 17 GM PACKET PO SCH (08:37)
[2017-09-05] MEDS: ASPIRIN EC 81 MG TABLET PO SCH (08:37)
--- NOTE | 2017-09-05 17:43 | PROVIDER PROGRESS NOTE ---
Subjective - Prog Note Date Prog Note Date: 09/05/17 Prog Note Time: 15:45 - Subjective Pt reports feeling: No change (The patient is demented and cannot remember her condition from yesterday. She has no new complaints today.She is not short of breath, is not showing any signs of any pain, she is eating and moving her bowels.) Current Medications - Current Medications Current Medications: Acetaminophen, alprazolam, aspirin, aztreonam,Pepcid, folic acid, lactobacillus , levothyroxine, memantine, methotrexate, metoprolol, ondansetron,Tamiflu, polyethylene glycol, sodium chloride, vancomycin Objective - Vital Signs/Intake & Output Reviewed Vital Signs: Yes Vital Signs: Vital Signs x48h Temp Pulse Resp BP Pulse Ox 09/05/17 15:40 37.6 C H 74 21 142/99 H 96 Intake & Output: Intake & Output 09/02/17 09/03/17 09/04/17 09/05/17 23:59 23:59 23:59 23:59 Intake Total 2401 2649 1314.000 Balance 2401 2649 1314.000 - Objective General Appearance: positive: No acute distress, Alert, Mild distress Eyes Bilateral: positive: Normal inspection, PERRL, EOMI, No lid inflammation, Conjunctivae nml, No scleral icterus ENT: positive: ENT inspection nml, Pharynx nml, No signs of dehydration Neck: positive: Nml inspection, Thyroid nml, No JVD, Trachea midline. negative : Thyromegaly Respiratory: positive: Chest non-tender, No respiratory distress, Breath sounds nml. negative: Wheezes, Rales, Rhonchi Cardiovascular: positive: Regular rate & rhythm, No murmur, No gallop Abdomen: positive: Non-tender, No organomegaly, Nml bowel sounds, No distention. negative: Guarding, Rebound Back: positive: Nml inspection. negative: CVA tenderness (R), CVA tenderness (L ) Skin: positive: Color nml, No rash, Warm, Dry. negative: Cyanosis Extremities: positive: Non-tender, Full ROM, Nml appearance, No pedal edema Neurologic/Psychiatric: positive: CN's nml (2-12), Motor nml, Sensation nml, Mood/affect nml, Disoriented to place, Disoriented to time - Lab Results Fish Bones: 09/05/17 04:56 09/05/17 04:56 Other Labs: Lab Results x24hrs 09/05/17 09/05/17 Range/Units 04:56 04:56 WBC 12.7 H (4.8-10.8) x10^3/uL RBC 3.50 L (4.20-5.40) 10^6/uL Hgb 10.6 L (12.0-16.0) g/dL Hct 32.2 L (37.0-47.0) % MCV 92.1 (81.0-99.0) fL MCH 30.4 (27.0-31.0) pg MCHC 33.0 (32.0-36.0) g/dL RDW 14.6 (12.0-15.0) % Plt Count 265 (130-450) 10^3/uL MPV 8.1 (7.9-10.8) fL Sodium 137 (135-145) mmol/L Potassium 3.3 L (3.5-5.0) mmol/L Chloride 108 (101-111) mmol/L Carbon Dioxide 21 (21-32) mmol/L Anion Gap 8.0 (6-13) BUN 14 (6-20) mg/dL Creatinine 0.6 (0.4-1.0) mg/dL Estimated GFR (MDRD) 96 (>89) Glucose 110 H (70-100) mg/dL Calcium 7.8 L (8.5-10.3) mg/dL Assessment/Plan - Problem List (1) Influenza Impression: The patient tested positive for influenza A and she is breathing easily on room air at this time. She is receiving Tamiflu twice a day and appears to be very comfortable. She has no new complaints. The patient does pocket her food and will likely be experiencing difficulty with aspiration in the near future but did pass a swallow study while here in the hospital during this hospitalization. (2) Dementia Impression: The patient has a fast scale score of 6E. She has begun pocketing her food however did pass her swallow study in that she is able to swallow thin liquids. (3) Hypertension Impression: Well-managed (124/66). Continue present care (metoprolol). (4) Chronic rheumatic arthritis Impression: Well-managed, continue methotrexate.
[2017-09-06] MEDS: SODIUM CHLORIDE FLUSH 0.9% 10 ML SYRINGE IVP SCH ×4 (00:58→23:21)
[2017-09-06] MEDS: LEVOTHYROXINE 100 MCG TABLET PO SCH (06:27)
[2017-09-06 06:38] LABS: HGB - HEMOGLOBIN 10.9 g/dL (12.0-16.0); MEAN CORPUSCULAR HGB CONC 32.8 g/dL (32.0-36.0); MEAN CORPUSCULAR VOLUME 91.5 fL (81.0-99.0); MEAN PLATELET VOLUME 8.2 fL (7.9-10.8); RED BLOOD COUNT 3.64 10^6/uL (4.20-5.40); RED CELL DISTRIBUTION WIDTH 14.5 % (12.0-15.0); WHITE BLOOD COUNT 11.3 x10^3/uL (4.8-10.8)
[2017-09-06 06:42] LABS: CALCIUM 8.2 mg/dL (8.5-10.3); CREATININE 0.6 mg/dL (0.4-1.0)
[2017-09-06] MEDS: METOPROLOL TARTRATE 25 MG TABLET PO SCH ×2 (08:24→21:07)
[2017-09-06] MEDS: OSELTAMIVIR 30 MG CAPSULE PO SCH ×2 (08:24→21:07)
[2017-09-06] MEDS: FOLIC ACID 1 MG TABLET PO SCH (08:24)
[2017-09-06] MEDS: LACTOBACILLUS RHAMNOSUS GG CAPSULE PO SCH ×2 (08:26→21:07)
[2017-09-06] MEDS: POLYETHYLENE GLYCOL 3350 17 GM PACKET PO SCH (08:26)
[2017-09-06] MEDS: FAMOTIDINE 20 MG TABLET PO SCH (08:26)
[2017-09-06] MEDS: MEMANTINE 5 MG TABLET PO SCH (08:26)
[2017-09-06] MEDS: ASPIRIN EC 81 MG TABLET PO SCH (08:26)
--- NOTE | 2017-09-06 13:15 | PROVIDER PROGRESS NOTE ---
Subjective - Prog Note Date Prog Note Date: 09/06/17 Prog Note Time: 13:00 - Subjective Pt reports feeling: No change Subjective: The patient says she feels well. She denies any new pain, shortness of breath, fever or chills. She is eating and moving her bowels. Current Medications - Current Medications Current Medications: Acetaminophen, alprazolam, aspirin, Pepcid, folic acid, lactobacillus, levothyroxine, memantine, methotrexate, metoprolol, ondansetron,Tamiflu, polyethylene glycol, sodium chloride Objective - Vital Signs/Intake & Output Reviewed Vital Signs: Yes Vital Signs: Vital Signs x48h Temp Pulse Resp BP BP Pulse Ox 09/06/17 08:55 37.4 C 78 19 159/83 H 96 09/06/17 08:24 149/109 H Intake & Output: Intake & Output 09/03/17 09/04/17 09/05/17 09/06/17 23:59 23:59 23:59 23:59 Intake Total 2401 2649 2054.000 1366 Balance 2401 2649 2054.000 1366 - Objective General Appearance: positive: No acute distress, Alert Eyes Bilateral: positive: Normal inspection, PERRL, EOMI, No lid inflammation, Conjunctivae nml, No scleral icterus ENT: positive: ENT inspection nml, Pharynx nml, No signs of dehydration Neck: positive: Nml inspection, Thyroid nml, No JVD, Trachea midline. negative : Thyromegaly Respiratory: positive: Chest non-tender, No respiratory distress, Breath sounds nml. negative: Wheezes, Rales, Rhonchi Cardiovascular: positive: Regular rate & rhythm, No murmur, No gallop Abdomen: positive: Non-tender, No organomegaly, Nml bowel sounds, No distention. negative: Guarding, Rebound Back: positive: Nml inspection. negative: CVA tenderness (R), CVA tenderness (L ) Skin: positive: Color nml, No rash, Warm, Dry. negative: Cyanosis Extremities: positive: Non-tender, Full ROM, Nml appearance Neurologic/Psychiatric: positive: Oriented x3, CN's nml (2-12), Motor nml, Sensation nml, Mood/affect nml - Lab Results Fish Bones: 09/06/17 05:50 09/06/17 05:50 Other Labs: Lab Results x24hrs 09/06/17 09/06/17 Range/Units 05:50 05:50 WBC 11.3 H (4.8-10.8) x10^3/uL RBC 3.64 L (4.20-5.40) 10^6/uL Hgb 10.9 L (12.0-16.0) g/dL Hct 33.3 L (37.0-47.0) % MCV 91.5 (81.0-99.0) fL MCH 30.0 (27.0-31.0) pg MCHC 32.8 (32.0-36.0) g/dL RDW 14.5 (12.0-15.0) % Plt Count 310 (130-450) 10^3/uL MPV 8.2 (7.9-10.8) fL Sodium 138 (135-145) mmol/L Potassium 3.6 (3.5-5.0) mmol/L Chloride 107 (101-111) mmol/L Carbon Dioxide 22 (21-32) mmol/L Anion Gap 9.0 (6-13) BUN 10 (6-20) mg/dL Creatinine 0.6 (0.4-1.0) mg/dL Estimated GFR (MDRD) 96 (>89) Glucose 96 (70-100) mg/dL Calcium 8.2 L (8.5-10.3) mg/dL Assessment/Plan - Problem List (1) Influenza Impression: The patient tested positive for influenza A and she is breathing easily on room air at this time. She is receiving Tamiflu twice a day and appears to be very comfortable. She has no new complaints. The patient does pocket her food and will likely be experiencing difficulty with aspiration in the near future but did pass a swallow study while here in the hospital during this hospitalization. (2) Dementia Impression: The patient has a fast scale score of 6E, nonambulatory. She has begun pocketing her food however did pass her swallow study in that she is able to swallow thin liquids. (3) Hypertension Impression: Elevated today, will add lisinopril. (4) Chronic rheumatic arthritis Impression: Well-managed, continue methotrexate.
[2017-09-06] MEDS: LISINOPRIL 20 MG TABLET PO SCH (17:03)
[2017-09-07] MEDS: SODIUM CHLORIDE FLUSH 0.9% 10 ML SYRINGE IVP SCH ×2 (01:26→09:34)
[2017-09-07 05:55] LABS: HGB - HEMOGLOBIN 11.4 g/dL (12.0-16.0); MEAN CORPUSCULAR HGB CONC 32.9 g/dL (32.0-36.0); MEAN CORPUSCULAR VOLUME 91.1 fL (81.0-99.0); MEAN PLATELET VOLUME 7.7 fL (7.9-10.8); RED BLOOD COUNT 3.79 10^6/uL (4.20-5.40); RED CELL DISTRIBUTION WIDTH 14.1 % (12.0-15.0); WHITE BLOOD COUNT 11.6 x10^3/uL (4.8-10.8)
[2017-09-07 06:13] LABS: CALCIUM 8.2 mg/dL (8.5-10.3); CREATININE 0.6 mg/dL (0.4-1.0)
[2017-09-07] MEDS: LEVOTHYROXINE 100 MCG TABLET PO SCH (06:17)
--- NOTE | 2017-09-07 09:23 | XRAY Report ---
FRONTAL CHEST: 09/07/2017 CLINICAL INDICATION: Followup basilar airspace opacities. FINDINGS: Frontal view of the chest is compared to previous film of 09/03/2017. Bibasilar atelectasis appears stable. No new infiltrate, effusion, or pneumothorax seen. IMPRESSION: STABLE BASILAR ATELECTASIS. TD: 09/07/2017 09:22
[2017-09-07] MEDS: ASPIRIN EC 81 MG TABLET PO SCH (09:26)
[2017-09-07] MEDS: MEMANTINE 5 MG TABLET PO SCH (09:26)
[2017-09-07] MEDS: FOLIC ACID 1 MG TABLET PO SCH (09:26)
[2017-09-07] MEDS: OSELTAMIVIR 30 MG CAPSULE PO SCH (09:26)
[2017-09-07] MEDS: LISINOPRIL 20 MG TABLET PO SCH (09:26)
[2017-09-07] MEDS: LACTOBACILLUS RHAMNOSUS GG CAPSULE PO SCH (09:26)
[2017-09-07] MEDS: METOPROLOL TARTRATE 25 MG TABLET PO SCH (09:27)
[2017-09-07] MEDS: FAMOTIDINE 20 MG TABLET PO SCH (09:27)
[2017-09-07 09:34] VITALS: BP 152/110
[2017-09-07] MEDS: POLYETHYLENE GLYCOL 3350 17 GM PACKET PO SCH (09:34)
--- NOTE | 2017-09-07 11:00 | Discharge Plan ---
"Discharge Plan for SNF / [facility] - DC Plan and Transition Orders Disposition: 03 SNF DC/Xfer Condition: Stable SNF Transition Orders: Admit to: [facility] under the care of Gregoria Gutiérrez Discharge Diagnosis: Influenza A Medicare Certification: I certify that Post Hospital correction care is medically necessary on a continuing basis for any of the conditions for which she/he is receiving care during hospitalization. Notify PCP of admission and forward orders to primary provider for signature. Weight on admission and weekly. Call PCP immediately if weight increases by 10 pounds or if patient develops dyspnea, chest pain/tightness or edema. House Bowel Program: yes If no BM after 2 days, nurse may give M.O.M. 30ml PO PRN and /or ducolax Supp 1 [place] and /or REYMUNDO 250mg P.O., and/or senna 1-2 tabs PO. On day 3 nurse may give repeat above order until residents constipation is resolved. Immunizations: Annual Influenza Vaccine: yes. (between Feb 20 and September 19.) Unless allergy or already given Two-Step PPD: yes per [facility] [phone] or appropriate documentation of approved exceptions Oxygen Orders: 2L/m PRN shortness of breath Medications: PLEASE REFER TO THE DISCHARGE MEDICATION LIST. 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 She has been pocketing her food and given her advanced dementia I believe that she will begin aspirating in the near future. Please be cautious.) Rehabilitation Potential: Maximize functional status Activity: Activity as Tolerated Weight Bearing: Partial Weight Assistance Devices: Wheelchair Follow Up: With your primary care provider next week"
--- NOTE | 2017-09-07 12:43 | DISCHARGE SUMMARY ---
Discharge Summary Admit Date: 09/02/17 Discharge Date: 09/07/17 Discharging Provider: Joaquina Morales DO Primary Care Provider: Gregoria Gutiérrez Code Status: Do Not Attempt Resuscitation Condition at Discharge: Stable Discharge Disposition: SNF DC/Xfer Discharge [facility] Name: [facility] - DIAGNOSES Admission Diagnoses: 1. Sepsis by virtue of high fever, tachycardia, and tachypnea 2. Healthcare associated pneumonia versus acute bronchitis, in a patient with immunocompromised state and on antibiotics recently for urinary tract infection 3. Influenza a, acute 4. Dementia 5. Hypertension 6. Rheumatoid arthritis, on methotrexate, therefore immunocompromised. Discharge Diagnoses with Status of Each Condition: 1. Sepsis by virtue of high fever, tachycardia, and tachypnea - All resolved. 2. Healthcare associated pneumonia versus acute bronchitis, in a patient with immunocompromised state and on antibiotics recently for urinary tract infection - The patient received 3 days of aztreonam and Rocephin. She never appeared to develop a pneumonia. 3. Influenza A, acute- The patient received a full 5 day, twice daily treatment of IV Tamiflu. 4. Dementia - Fast scale score 6E, nonambulatory. The patient is pocketing and is at high risk for aspiration. She did have a swallow study while hospitalized and was able to swallow thin liquids however exhibited a poor lip seal. 5. Hypertension- Resume home care. 6. Rheumatoid arthritis, on methotrexate, therefore immunocompromised.-Resume home care. - HPI History of Present Illness: The patient is an 82-year-old female with a history of dementia and takes Namenda and lives at an assisted living facility/senior care, who has a history of hypertension, rheumatoid arthritis and is taking methotrexate. Patient was brought to the emergency room at the advice of the assisted-living staff who thought the patient was having a seizure but in fact was having rigors associated with fevers. Patient was completely awake during the event and telling people that she felt chills. In the emergency room she was found to have a wet productive cough, was taking tachypneic at a rate of 30, tachycardic at a rate of 120, and had a fever of 39.8. Patient cannot give any other detailed history. - HOSPITAL COURSE Hospital Course: The patient was admitted to medical surgical bed and given Tamiflu, 75 mg IV twice a day. Her home medications were restarted and her symptoms were addressed. She began to improve almost immediately and has been doing well over the last several days. She has now completed 5 days of twice daily dosing and is ready to be returned to her assisted living facility. - ALLERGIES Allergies/Adverse Reactions: Allergies Allergy/AdvReac Type Severity Reaction Status Date / Time ketamine AdvReac Unknown Verified 10/26/14 16:44 - MEDICATIONS Home Medications: Ambulatory Orders Medication Instructions Recorded Confirmed Folic Acid 1 mg PO DAILY 10/26/14 09/03/17 Levothyroxine [Synthroid] 150 mcg PO QDAC 10/26/14 09/03/17 Methotrexate 15 mg PO Q7D 10/26/14 09/03/17 Simvastatin 10 mg PO QPM 10/26/14 09/03/17 Acetaminophen [Pain Relief] 625 mg ORAL TID PRN 01/18/15 09/03/17 Aspirin [Low Dose Aspirin EC] 81 mg PO DAILY 04/12/15 09/03/17 Memantine HCl [Namenda] 5 mg PO DAILY 04/12/15 09/03/17 Metoprolol Tartrate 12.5 mg PO BID 04/12/15 09/03/17 ALPRAZolam [Xanax] 0.5 mg PO BID PRN 08/16/15 09/03/17 Diclofenac Sodium [Voltaren] 4 gm PO QID PRN 03/03/17 09/03/17 HYDROcod/ACETAM 5/325 [[place] 5/325] 0.5 tab PO Q6H PRN 03/03/17 09/03/17 Senna [Senokot] 8.6 mg PO BID PRN 03/03/17 09/03/17 ALPRAZolam [Alprazolam] 0.5 mg PO DAILY 09/03/17 09/03/17 Guaifenesin [Child Mucinex Chest 200 mg PO Q4H PRN 09/03/17 09/03/17 Congestion] Loperamide HCl [Loperamide] 2 mg PO PRN PRN MDD 16 mg 09/03/17 09/03/17 QUEtiapine [SEROquel] 100 mg PO 1200,1800 09/03/17 09/03/17 - PHYSICAL EXAM AT DISCHARGE General Appearance: positive: No acute distress, Alert, Mild distress Eyes Bilateral: positive: Normal inspection, PERRL, EOMI, No lid inflammation, Conjunctivae nml, No scleral icterus ENT: positive: ENT inspection nml, Pharynx nml, No signs of dehydration Neck: positive: Nml inspection, Thyroid nml, No JVD, Trachea midline. negative : Thyromegaly Respiratory: positive: Chest non-tender, No respiratory distress, Breath sounds nml. negative: Wheezes, Rales, Rhonchi Cardiovascular: positive: Regular rate & rhythm, No murmur, No gallop Peripheral Pulses: positive: 1+ Abdomen: positive: Non-tender, No organomegaly, Nml bowel sounds, No distention. negative: Guarding, Rebound Back: positive: Nml inspection. negative: CVA tenderness (R), CVA tenderness (L ) Skin: positive: Color nml, No rash, Warm, Dry. negative: Cyanosis Extremities: positive: Non-tender, Full ROM, Nml appearance, No pedal edema Neurologic/Psychiatric: positive: CN's nml (2-12), Motor nml, Sensation nml, Mood/affect nml, Disoriented to place, Disoriented to time - LABS Result Diagrams: 09/07/17 05:49 09/07/17 05:49 - FOLLOW UP Follow Up: Follow-up with your primary care provider next week. - TIME SPENT Time Spent in Discharge (Minutes): 40
== END 2017-09-07 13:15 | disposition home or self-care (01) | DRG 872 ==
LOC: EDUNIT# → ED 18:53 → MS3 21:13
PROVIDERS: ADMIT Internal Medicine; ATTEND Hospitalist
DX: A41.9 Sepsis, unspecified organism (principal); N39.0 Urinary tract infection, site not specified; G30.9 Alzheimer's disease, unspecified; F02.80 Dementia in other diseases classified elsewhere, unspecified severity, without behavioral disturbance, psychotic disturbance, mood disturbance, and anxiety; J10.1 Influenza due to other identified influenza virus with other respiratory manifestations; I10 Essential (primary) hypertension; M06.9 Rheumatoid arthritis, unspecified; F03.90 Unspecified dementia, unspecified severity, without behavioral disturbance, psychotic disturbance, mood disturbance, and anxiety; Z66 Do not resuscitate; Z79.82 Long term (current) use of aspirin; Z79.899 Other long term (current) drug therapy
CPT/HCPCS: 36415; 51701; 71045; 71046; 80048; 80053; 81001; 81003; 83605; 83690; 83735; 85025; 87040; 87086; 87275; 87276; 93005; 96365; 96367; 99284; 99285

== ENCOUNTER 2017-09-02 21:49 | Outpatient (CLI) | payer MEDICARE, OTHER, MEDICAID | END 2017-09-02 21:50 | disposition critical access hospital (66) | LOC: EMS 21:49 | PROVIDERS: ATTEND Surgery | DX: R56.9 Unspecified convulsions (principal); R50.9 Fever, unspecified; R05 Cough | CPT/HCPCS: A0425; A0429 ==

== ENCOUNTER 2017-09-11 15:15 | Outpatient (CLI) | payer MEDICARE, OTHER, MEDICAID ==
--- NOTE | 2017-09-11 15:18 | CONSULTATION NOTE ---
Palliative Care Follow Up - Referral Referring Provider: Dr Gutiérrez Time of Visit: 09/11/2017. 14:00 - 14:40 Referral setting: Adult Family Home (Seen in home setting due to taxing and considerable effort required to leave the home due to lower extremity weakness following recent sepsis, and advanced dementia.) Referral Reason: Recent sepsis, advanced dementia - Information Sources Records reviewed: Previous records reviewed History/Review of Systems obtained from: Patient, Caregiver Exam limitations: Clinical condition (Advanced dementia) - History of Present Illness Update Brief HPI Update: - This is an 82-year-old woman with advanced dementia, anxiety, paranoia behavior, and intermittent hallucinations with a history of recurrent UTIs. She was recently hospitalized from September 02- for influenza A and acute bronchitis, treated with Tamiflu, 3 days of aztreonam, and Rocephin. She never appeared to develop a pneumonia. She was discharged from hospital without any at-home antibiotics. -Since her discharge from hospital, she has decreased appetite, mobility, strength, and cognition, however, she has shown some improvement in stamina. -She has increased pain in her back and knees, and is being given [place] about 3 times a day. She has decreased ability to participate in the [facility] his exercise program. -She has a chesty cough with phlegm, currently on PRN guaifenesin. -I stopped her routine alprazolam and reduced the quetiapine due to increased sedation and fatigue. She has some episodes of increased agitation as a result. Caregivers are monitoring closely. -During today's assessment patient is somnolent, less alert and interactive than her baseline, but remains pleasant, sociable and interactive, though with less enthusiasm than normal. Decline in cognition is apparent. -Caregiver reports increased somnolence and daytime sleeping. She sleeps approximately 12 hours during the night and 6 hours throughout the day. -Patient is "pocketing " her food, increasing her risk for aspiration pneumonia. -She has just been started on Xeljanz (tofacitinib) for rheumatoid arthritis. This medication carries a Black Box warning of increased risk of serious infection. Social History - Living Situation Living arrangement: Adult family home ([facility]) Living Situation: With spouse/s.o., With caregiver(s) Support System: Her spouse lives with her in the Adult Family Home. He is on Hospice. Their son lives locally and visits frequently. Medications/Allergies - Medications Home Medications: Ambulatory Orders Medication Instructions Recorded Confirmed Folic Acid 1 mg PO DAILY 10/26/14 09/03/17 Levothyroxine [Synthroid] 150 mcg PO QDAC 10/26/14 09/03/17 Methotrexate 15 mg PO Q7D 10/26/14 09/03/17 Simvastatin 10 mg PO QPM 10/26/14 09/03/17 Acetaminophen [Pain Relief] 625 mg ORAL TID PRN 01/18/15 09/03/17 Aspirin [Low Dose Aspirin EC] 81 mg PO DAILY 04/12/15 09/03/17 Memantine HCl [Namenda] 5 mg PO DAILY 04/12/15 09/03/17 Metoprolol Tartrate 12.5 mg PO BID 04/12/15 09/03/17 ALPRAZolam [Xanax] 0.5 mg PO BID PRN 08/16/15 09/03/17 Diclofenac Sodium [Voltaren] 4 gm PO QID PRN 03/03/17 09/03/17 HYDROcod/ACETAM 5/325 [[place] 5/325] 0.5 tab PO Q4H PRN 03/03/17 09/11/17 Senna [Senokot] 8.6 mg PO BID PRN 03/03/17 09/03/17 ALPRAZolam [Alprazolam] 0.5 mg PO DAILY MDD GDR to stop 09/03/17 09/11/17 routine dosing Guaifenesin [Child Mucinex Chest 10 ml PO Q4H PRN 09/03/17 09/11/17 Congestion] Loperamide HCl [Loperamide] 2 mg PO PRN PRN MDD 16 mg 09/03/17 09/03/17 QUEtiapine [SEROquel] 50 mg PO 1200,1800 MDD GDR down to 09/03/17 09/11/17 50mg BID Benzonatate 100 mg PO TID PRN 09/11/17 09/11/17 Multivitamin/Iron/Folic Acid 1 tab PO DAILY 09/11/17 09/11/17 [Centrum Women Tablet] Ondansetron [Zuplenz] 4 mg PO Q6H PRN 09/11/17 09/11/17 Tofacitinib Citrate [Xeljanz Xr] 11 mg PO DAILY 09/11/17 09/11/17 - Allergies Allergies/Adverse Reactions: Allergies Allergy/AdvReac Type Severity Reaction Status Date / Time ketamine AdvReac Unknown Verified 10/26/14 16:44 Review of Systems - Constitutional Constitutional: reports: Fatigue, Weakness, Poor appetite, Weight stable ( Baseline weight is 168 lbs. Unknown what current weight is; she is unable to stand on scale.) - Ears, Nose & Throat Ears, Nose & Throat: reports: Hearing loss - Cardiovascular Cardiovascular: reports: Decr. exercise tolerance. denies: Irregular heart rate - Respiratory Respiratory: reports: Cough, Sputum production - Genitourinary Genitourinary: reports: Incontinence - Musculoskeletal Musculoskeletal: reports: Back pain, Muscle weakness, Transfer issues, Other ( knee pain) - Neurological Neurological: reports: General weakness, Memory problems - Psychiatric Psychiatric: reports: Aggitation - Other Findings Other Findings: Obtained from caregiver due to advanced dementia of patient. Physical Exam - Vital Signs Temperature: 96.8 F Pulse Rate: 63 O2 Saturation: 95 Blood Pressure: 118/70 - Physical Exam General Appearance: positive: No acute distress, Lethargic Eyes Bilateral: positive: EOMI, No lid inflammation, Conjunctivae nml, No scleral icterus ENT: positive: No signs of dehydration Neck: positive: No JVD, Trachea midline Cardiovascular: positive: Regular rate & rhythm (bounding), No murmur Respiratory: positive: Chest non-tender, Diminished throughout, Other (Rolling cough) Skin: positive: No symptoms Extremities: negative: No pedal edema Neurologic/Psychiatric: positive: Disoriented to place, Disoriented to time, Flat affect. negative: Motor nml (tremors) Palliative Care - POLST Patient has POLST: Yes POLST Status: DNR, Selective Treatment Pain: Pain worsening (Giving Tylenol about 3x/day for relief), Location (back and knees) Tiredness/Fatigue: Severe (7-10) (Sleeps about 18 hours per day) Anxiety: Moderate (4-6) Anorexia: Moderate (4-6) Sleep: Variable sleep pattern (18 hours per day) - Palliative Care Discussion: -Increase sedation and fatigue since discharge from hospital so Alprazolam routine dosing was gradually reduced and stopped, PRN dosing continued. Also GDR of quetiapine from 100mg BID to 50mg BID. -Will monitor and increase dosing if behaviors, hallucinations or agitation increases. -Provided anticipatory guidance to son, discussed interventions, weighing benefits and burdens. -Son believes she is still aware of her 's presence. He would not be surprised if they each around the same time. They have been 40+ years. 's condition has improved and he is more alert since being admitted to Hospice. Son is pleased and pleasantly surprised. -Goal is to keep patient comfortable and calm. Impression and Recommendations - Palliative Care Impression: This is a pleasant 82-year-old woman with dementia and history of behavior disturbance. She is recently been discharged from hospital after sepsis and treatment for bronchitis. She never appeared to develop pneumonia. She has just started Xeljanz for rheumatoid arthritis. She remains immunocompromised due to rheumatoid arthritis treatment and remains at high risk for recurrent infection. She is weak with compromised functionality and not back to her baseline. Palliative care will continue to monitor and transition to hospice when appropriate. Recommendations/Counseling Done: Dementia with behaviors: Cognitive decline and increased fatigue. Started GDR of quetiapine, slowly titrating from 100mg BID to 50mg BID. Anxiety: GDR of Alprazolam routine due to increased sedation and fatigue. Continue alprazolam PRN. Sepsis: Still not back to baseline after infection. Treated with aztreonam and Rocephin. Influenza A: Still not back to baseline after infection. Treated with IV Tamiflu. Started benzonatate 100mg TID PRN for chesty cough. Continue guaifenesin as needed. Rheumatoid arthritis: Stable. On methotrexate, just started Xeljanz. Advanced care planning: DNR but selective treatment for reversible conditions. Time Spent: 40 minutes were spent with more than 50% of the time spent on counseling, education, and coordination of care.
== END 2017-09-11 15:16 | disposition home or self-care (01) ==
LOC: PC 15:15
PROVIDERS: ATTEND Nurse Practitioner
DX: Z51.5 Encounter for palliative care (principal); G30.9 Alzheimer's disease, unspecified; F02.81 Dementia in other diseases classified elsewhere, unspecified severity, with behavioral disturbance; F41.9 Anxiety disorder, unspecified; R05 Cough; M06.9 Rheumatoid arthritis, unspecified; Z87.440 Personal history of urinary (tract) infections; Z79.899 Other long term (current) drug therapy; Z66 Do not resuscitate

== ENCOUNTER 2017-09-19 15:27 | Outpatient (CLI) | payer MEDICARE, OTHER, MEDICAID | END 2017-09-19 15:28 | disposition critical access hospital (66) | LOC: EMS 15:27 | PROVIDERS: ATTEND Surgery | DX: R19.7 Diarrhea, unspecified (principal) | CPT/HCPCS: A0425; A0427 ==

== ENCOUNTER 2017-09-19 15:41 | Emergency (ER) | payer MEDICARE, OTHER, MEDICAID ==
--- NOTE | 2017-09-19 16:13 | ED Physician Documentation ---
History of Present Illness - Stated complaint Stated Complaint: DIARRHEA - Chief complaint Chief Complaint: General - History obtained from History obtained from: Patient, Family - History of Present Illness Timing: Other (Most of the history is from the son because of dementia, she comes in with 2 days of diarrhea from the adult family home with concern for C. difficile based on the smell. No fevers. She had a recent admission for pneumonia with sepsis so has been on antibiotics. Patient is without specific complaint when asked.) Review of Systems Unable to obtain: Dementia PD PAST MEDICAL HISTORY - Past Medical History Cardiovascular: Hypertension, High cholesterol Neuro: Alzhiemer's Endocrine/Autoimmune: HyPOthyroidism GI: GERD Psych: Anxiety Musculoskeletal: Fibromyalgia - Past Surgical History /MOVER: Other - Present Medications Home Medications: Ambulatory Orders Medication Instructions Recorded Confirmed Folic Acid 1 mg PO DAILY 10/26/14 09/03/17 Levothyroxine [Synthroid] 150 mcg PO QDAC 10/26/14 09/03/17 Methotrexate 15 mg PO Q7D 10/26/14 09/03/17 Simvastatin 10 mg PO QPM 10/26/14 09/03/17 Acetaminophen [Pain Relief] 625 mg ORAL TID PRN 01/18/15 09/03/17 Aspirin [Low Dose Aspirin EC] 81 mg PO DAILY 04/12/15 09/03/17 Memantine HCl [Namenda] 5 mg PO DAILY 04/12/15 09/03/17 Metoprolol Tartrate 12.5 mg PO BID 04/12/15 09/03/17 ALPRAZolam [Xanax] 0.5 mg PO BID PRN 08/16/15 09/03/17 Diclofenac Sodium [Voltaren] 4 gm PO QID PRN 03/03/17 09/03/17 HYDROcod/ACETAM 5/325 [[place] 5/325] 0.5 tab PO Q4H PRN 03/03/17 09/11/17 Senna [Senokot] 8.6 mg PO BID PRN 03/03/17 09/03/17 ALPRAZolam [Alprazolam] 0.5 mg PO DAILY MDD GDR to stop 09/03/17 09/11/17 routine dosing Guaifenesin [Child Mucinex Chest 10 ml PO Q4H PRN 09/03/17 09/11/17 Congestion] Loperamide HCl [Loperamide] 2 mg PO PRN PRN MDD 16 mg 09/03/17 09/03/17 QUEtiapine [SEROquel] 50 mg PO 1200,1800 MDD GDR down to 09/03/17 09/11/17 50mg BID Benzonatate 100 mg PO TID PRN 09/11/17 09/11/17 Multivitamin/Iron/Folic Acid 1 tab PO DAILY 09/11/17 09/11/17 [Centrum Women Tablet] Ondansetron [Zuplenz] 4 mg PO Q6H PRN 09/11/17 09/11/17 Tofacitinib Citrate [Xeljanz Xr] 11 mg PO DAILY 09/11/17 09/11/17 Vancomycin [Vancocin] 125 mg PO QID #40 capsule 09/19/17 - Allergies Allergies/Adverse Reactions: Allergies Allergy/AdvReac Type Severity Reaction Status Date / Time ketamine AdvReac Unknown Verified 10/26/14 16:44 - POLST Patient has POLST: Yes PD ED PE NORMAL - Vitals Vital signs reviewed: Yes - General General: Other (She is alert and cooperative, she recognizes her son as her brother. She does not know why she is here.) - HEENT HEENT: PERRL, EOMI - Neck Neck: Supple, no meningeal sign, No bony TTP - Cardiac Cardiac: RRR, No murmur - Respiratory Respiratory: No respiratory distress, Clear bilaterally - Abdomen Abdomen: Normal bowel sounds, Soft, Non tender - Back Back: No CVA TTP, No spinal TTP - Derm Derm: Normal color, Warm and dry - Extremities Extremities: No edema, No calf tenderness / cord - Neuro Neuro: Normal speech. No: Alert and oriented X 3 Eye Opening: Spontaneous Motor: Obeys Commands Verbal: Confused GCS Score: 14 Results - Vitals Vitals: Vital Signs - 24 hr 09/19/17 09/19/17 09/19/17 15:45 17:58 19:01 Temperature 36.9 C Heart Rate 83 83 83 Respiratory 18 16 18 Rate Blood Pressure 134/67 H 136/68 H 147/80 H O2 Saturation 98 100 98 Oxygen O2 Source Room air - Labs Labs: Microbiology 09/19/17 17:00 Clostridium difficile (PCR) - Final Stool 09/19/17 17:00 Campylobacter Antigen Assay - Final Stool Laboratory Tests 09/19/17 09/19/17 16:20 16:20 WBC 12.7 H RBC 3.95 L Hgb 12.0 Hct 37.0 MCV 93.6 MCH 30.4 MCHC 32.5 RDW 15.3 H Plt Count 486 H MPV 8.0 Neut # 9.1 H Lymph # 2.6 [place] # 0.7 Eos # 0.3 Baso # 0.1 Absolute Nucleated RBC 0.01 Nucleated RBC % 0.0 Sodium 137 Potassium 3.9 Chloride 104 Carbon Dioxide 27 Anion Gap 6.0 BUN 24 H Creatinine 1.0 Estimated GFR (MDRD) 53 L Glucose 136 H Calcium 8.9 Total Bilirubin 0.5 AST 35 ALT 54 Alkaline Phosphatase 70 Total Protein 7.0 Albumin 3.0 L Globulin 4.0 Albumin/Globulin Ratio 0.8 L Lipase 15 L Departure - Departure Disposition: 01 Home, Self Care Clinical Impression: C. difficile colitis Condition: Good Record reviewed to determine appropriate education?: Yes Instructions: Clostridium Difficile Infec Prescriptions: Vancomycin [Vancocin] 125 mg PO QID #40 capsule Comments: Recheck with your doctor in 1 week, return if worse in any way.
[2017-09-19 16:26] LABS: BASOPHILS # (AUTO) 0.1 10^3/uL (0.0-0.1); BASOPHILS % (AUTO) 0.8 %; EOSINOPHILS # (AUTO) 0.3 10^3/uL (0.0-0.7); EOSINOPHILS % (AUTO) 2.6 %; LYMPHOCYTES # (AUTO) 2.6 10^3/uL (1.5-3.5); LYMPHOCYTES % (AUTO) 20.1 %; MEAN CORPUSCULAR HEMOGLOBIN 30.4 pg (27.0-31.0); MEAN CORPUSCULAR HGB CONC 32.5 g/dL (32.0-36.0); MEAN CORPUSCULAR VOLUME 93.6 fL (81.0-99.0); MONOCYTES # (AUTO) 0.7 10^3/uL (0.0-1.0); MONOCYTES % (AUTO) 5.1 %; NEUTROPHILS # (AUTO) 9.1 10^3/uL (1.5-6.6); NEUTROPHILS % (AUTO) 71.4 %; PLT - PLATELET COUNT 486 10^3/uL (130-450); RED BLOOD COUNT 3.95 10^6/uL (4.20-5.40); RED CELL DISTRIBUTION WIDTH 15.3 % (12.0-15.0); WHITE BLOOD COUNT 12.7 x10^3/uL (4.8-10.8)
[2017-09-19 16:37] LABS: ALBUMIN/GLOBULIN RATIO 0.8 (1.0-2.2); BILIRUBIN,TOTAL 0.5 mg/dL (0.2-1.0); CALCIUM 8.9 mg/dL (8.5-10.3)
[2017-09-19] MEDS ORDERED: CHOLESTYRAMINE 4 GM PACKET PO STA (17:15)
[2017-09-19] MEDS ORDERED: VANCOMYCIN 125 MG CAPSULE PO STA (18:42)
[2017-09-19 19:03] VITALS: BP 147/80
== END 2017-09-19 20:10 | disposition home or self-care (01) ==
LOC: EDUNIT# → ED 15:41
DX: A04.72 Enterocolitis due to Clostridium difficile, not specified as recurrent (principal); I10 Essential (primary) hypertension; G30.9 Alzheimer's disease, unspecified; F02.80 Dementia in other diseases classified elsewhere, unspecified severity, without behavioral disturbance, psychotic disturbance, mood disturbance, and anxiety; E03.9 Hypothyroidism, unspecified; K21.9 Gastro-esophageal reflux disease without esophagitis; M79.7 Fibromyalgia; Z79.82 Long term (current) use of aspirin
CPT/HCPCS: 36415; 80053; 83690; 85025; 87045; 87046; 87493; 99283; A9270; J8499

== ENCOUNTER 2017-09-19 20:10 | Outpatient (CLI) | payer MEDICARE, OTHER, MEDICAID | END 2017-09-19 20:11 | disposition home or self-care (01) | LOC: EMS 20:10 | PROVIDERS: ATTEND Surgery | DX: G82.50 Quadriplegia, unspecified (principal) | CPT/HCPCS: A0425; A0428 ==

== ENCOUNTER 2017-09-24 11:55 | Outpatient (CLI) | payer MEDICARE, OTHER, MEDICAID ==
--- NOTE | 2017-09-24 13:22 | CONSULTATION NOTE ---
Palliative Care Follow Up - Referral Referring Provider: Dr Gutiérrez Time of Visit: 09/24/2017. 11:55 - 12:35 Referral setting: Adult Family Home (Seen in home setting due to taxing and considerable effort required to leave the home due to lower extremity weakness and being contagious with C diff infection) Referral Reason: C difficile infection - Information Sources Records reviewed: Previous records reviewed History/Review of Systems obtained from: Patient, Caregiver Exam limitations: Clinical condition (advanced dementia, cognitive deficits) - History of Present Illness Update Brief HPI Update: This is an 82-year-old woman with advanced dementia, anxiety, paranoia behavior , and intermittent hallucinations with a history of recurrent UTIs. She was hospitalized September 02 and for influenza A and acute bronchitis, treated with Tamiflu, 3 days of aztreonam and Rocephin. She did not appear to develop a pneumonia at that time. Unfortunately after discharge from hospital she contracted C diff secondary to the antibiotic treatment, and went to ED on 09/19 for uncontrolled diarrhea. She was discharged to the [facility] with a 10-day course of vancomycin. - She has declined in functionality since her illness and hospitalization: eating 25-50% of her normal intake, remaining mostly bedbound; physically lashing out at staff of [facility] when they provide care due to increased pain; excessive sleeping (caregiver estimates she was awake only about 2 hrs/day. - Her psych medications were adjusted due to her lethargy. Quetiatpoine decreased from 100mg BID to 50g BID, and increased [place] to 1 tab from 1/2 tab Q4 prn - It has been 5 days since she went to ED and was diagnosed and treated for C diff. She is now on 5th day of Vancomycin treatment. - Today during my visit she was awake and at the edge of the bed. - She is alert but confused, reports being hungry, and wants to get up. - Her lower extremities are too weak to support her, ever since her respiratory infection from mid-August. - She is complaining of her chronic back pain. We just adjusted pain regimen yesterday (1000mg apap TID). - She is in isolation in her bedroom, and [facility] is using contact precautions. - She was recently started on Xeljanz XR/ofacinib for her RA Social History - Living Situation Living arrangement: Adult family home ([facility]) Living Situation: With caregiver(s) Support System: Her spouse lives in the same Adult Family Home. He is on Hospice and steadily declining. Their son lives locally with his family and visits frequently. Medications/Allergies - Medications Home Medications: Ambulatory Orders Medication Instructions Recorded Confirmed Folic Acid 1 mg PO DAILY 10/26/14 09/24/17 Levothyroxine [Synthroid] 150 mcg PO QDAC 10/26/14 09/24/17 Methotrexate 15 mg PO Q7D 10/26/14 09/24/17 Simvastatin 10 mg PO QPM 10/26/14 09/24/17 Acetaminophen [Pain Relief] 1,000 mg ORAL TID PRN 01/18/15 09/24/17 Aspirin [Low Dose Aspirin EC] 81 mg PO DAILY 04/12/15 09/24/17 Memantine HCl [Namenda] 5 mg PO DAILY 04/12/15 09/24/17 Metoprolol Tartrate 12.5 mg PO BID 04/12/15 09/24/17 ALPRAZolam [Xanax] 0.5 mg PO BID PRN 08/16/15 09/24/17 Diclofenac Sodium [Voltaren] 4 gm PO QID PRN 03/03/17 09/24/17 HYDROcod/ACETAM 5/325 [[place] 5/325] 0.5 - 1 tab PO Q4H PRN 03/03/17 09/24/17 Senna [Senokot] 8.6 mg PO BID PRN 03/03/17 09/24/17 ALPRAZolam [Alprazolam] 0.5 mg PO DAILY MDD GDR to stop 09/03/17 09/24/17 routine dosing Guaifenesin [Child Mucinex Chest 10 ml PO Q4H PRN 09/03/17 09/24/17 Congestion] Loperamide HCl [Loperamide] 2 mg PO PRN PRN MDD 16 mg 09/03/17 09/24/17 QUEtiapine [SEROquel] 50 mg PO 1200,1800 MDD GDR down to 09/03/17 09/24/17 50mg BID Benzonatate 100 mg PO TID PRN 09/11/17 09/24/17 Multivitamin/Iron/Folic Acid 1 tab PO DAILY 09/11/17 09/24/17 [Centrum Women Tablet] Ondansetron [Zuplenz] 4 mg PO Q6H PRN 09/11/17 09/24/17 Tofacitinib Citrate [Xeljanz Xr] 11 mg PO DAILY 09/11/17 09/24/17 Vancomycin [Vancocin] 125 mg PO QID #40 capsule 09/19/17 09/24/17 - Allergies Allergies/Adverse Reactions: Allergies Allergy/AdvReac Type Severity Reaction Status Date / Time ketamine AdvReac Unknown Verified 10/26/14 16:44 Review of Systems - Constitutional Constitutional: reports: Fatigue, Weakness, Poor appetite, Weight stable (Have not been able to get a recent weight. Last weight taken is 168 lbs, her baseline.) - Ears, Nose & Throat Ears, Nose & Throat: reports: Hearing loss - Cardiovascular Cardiovascular: reports: Chest pain, Decr. exercise tolerance - Respiratory Respiratory: reports: Cough (rough) - Gastrointestinal Gastrointestinal: reports: Diarrhea (C diff), Poor appetite - Genitourinary Genitourinary: reports: Incontinence - Musculoskeletal Musculoskeletal: reports: Back pain, Muscle weakness, Transfer issues (R knee collapses) - Neurological Neurological: reports: General weakness, Memory problems - Endocrine Endocrine: reports: Hypothyroidism Physical Exam - Vital Signs Temperature: 98.4 F Pulse Rate: 80 O2 Saturation: 94 (room air) Blood Pressure: 150/90 - Physical Exam General Appearance: positive: No acute distress, Alert Eyes Bilateral: positive: No lid inflammation, Conjunctivae nml, No scleral icterus ENT: positive: No signs of dehydration Neck: positive: No JVD, Trachea midline Cardiovascular: positive: Regular rate & rhythm, No murmur Respiratory: positive: No respiratory distress, Breath sounds nml, Diminished throughout, Other (rough cough) Skin: positive: No symptoms Extremities: positive: No pedal edema Neurologic/Psychiatric: positive: Mood/affect nml, Disoriented to place, Disoriented to time, Weakness Palliative Care - POLST Patient has POLST: Yes POLST Status: DNR, Selective Treatment Pain: Comment (Back and RA pain, chronic. Changing pain med regimen.) Tiredness/Fatigue: Severe (7-10) Anxiety: Mild (1-3) Anorexia: Moderate (4-6) Sleep: Other (Excessive sleeping) Performance Status: Previous to her hospitalization she was ambulatory w/o a walker. Currently she is unable to stand up or transfer due to lower extremity weakness. She is mostly bedbound and sleep most of the time. - Palliative Care Discussion: Spoke with son, and reported his mother seems to have perked up today, she is alert, pleasant and able to respond to my greetings and questions. fur feeder reports this is the best she has been since discharge from hospital, so she may be turning the corner. We discussed Hospice, and that she does not meet criteria, and we will monitor whether she continues to decline or stabilizes. He supports Hospice when appropriate. We also discussed bringing his child in to visit, best to wait until she's cleared of C diff. Impression and Recommendations - Palliative Care Impression: This is an 82-year-old woman with advanced dementia, anxiety, paranoia behavior , and intermittent hallucinations with a history of recurrent UTIs. She was hospitalized September 02 and for respiratory infection (not pneumonia) and later developed C diff infection for which she is being treated with Vancomycin. Her functionality sharply declined since the hospitalization, but today she has improved and appears more energetic. Palliative care will continue to monitor for further decline and eventual transition to Hospice when appropriate. Recommendations/Counseling Done: C difficile infection: Improving. 5 days remaining of vancomycin 125mg QID x 10 days. Educated career and guidance counselor to not administer loperamide or any anti-diarrheal with C diff infection. Continue isolation in her room and contact precautions. Dementia with behaviors: Quetiapine dosing was cut from 100mg BID to 50mg BID due to excessive somnolence. Stopped routine alprazola but continue alprazolam PRN. Continue to monitor for agitation and somnolence, notify [facility] if behaviors start to escalate. Chronic pain, secondary to RA: Stopped [place], started Tylenol 1000 TID, monitor for effectiveness. Recently started Xeljanz/tofacinib for RA. Continue methotrexate. Cough: Continue guafenesin PRN and benzonatate PRN, which was ordered but may not have arrived from pharmacy. fur feeder to follow up with pharmacy. Debility secondary to infection (respiratory and enteral): Some improvement, not back to baseline, unable to bear weight. Complete antibiotic regimen and continue to monitor. fur feeder will move TV or radio into patient's room since she's sleeping less, is trying to get up, and is isolated from the rest of the household. Advanced care planning: Goal is comfort and quality of life. POLST is DNR and selective treatment. Monitor for transition to Hospice when criteria are met. Follow up next week. Visit at every 4-6 weeks generally. Time Spent: 40 minutes were spent with more than 50% of the time spent on counseling, education, and coordination of care.
== END 2017-09-24 11:56 | disposition home or self-care (01) ==
LOC: PC 11:55
PROVIDERS: ATTEND Nurse Practitioner
DX: Z51.5 Encounter for palliative care (principal); A04.72 Enterocolitis due to Clostridium difficile, not specified as recurrent; T36.95XA Adverse effect of unspecified systemic antibiotic, initial encounter; G30.9 Alzheimer's disease, unspecified; F02.81 Dementia in other diseases classified elsewhere, unspecified severity, with behavioral disturbance; M06.9 Rheumatoid arthritis, unspecified; G89.29 Other chronic pain; R05 Cough; Z74.01 Bed confinement status; Z79.899 Other long term (current) drug therapy; Z66 Do not resuscitate; Z87.440 Personal history of urinary (tract) infections

== ENCOUNTER 2017-10-27 08:00 | Outpatient (CLI) | payer MEDICARE, OTHER, MEDICAID | END 2017-10-27 08:01 | disposition home or self-care (01) | LOC: LAB.R 08:00 | PROVIDERS: ATTEND Nurse Practitioner | DX: A04.72 Enterocolitis due to Clostridium difficile, not specified as recurrent (principal) | CPT/HCPCS: 87493 ==

== ENCOUNTER 2017-10-27 14:10 | Outpatient (CLI) | payer MEDICARE, OTHER, MEDICAID ==
--- NOTE | 2017-10-27 16:37 | CONSULTATION NOTE ---
Palliative Care Follow Up - Referral Referring Provider: Dr Gutiérrez Time of Visit: 10/27/2017. 14:10 - 14:45 Referral setting: Adult Family Home (Seen in home setting due to taxing and considerable effort required to leave the home due to lower extremity weakness, failure to thrive, and advancing dementia.) Referral Reason: Diarrhea, acute - Information Sources Records reviewed: Previous records reviewed History/Review of Systems obtained from: Patient, Family, Caregiver Exam limitations: Clinical condition (advanced dementia, cognitive deficits) - History of Present Illness Update Brief HPI Update: -82-year-old woman declining in functionality and cognition since flu back in August, followed by C. difficile infection. -Medical history: Advanced dementia, anxiety, paranoia behavior, intermittent hallucinations with a history of recurrent UTIs, VT with stent placement on 03/02, history of breast cancer with a lumpectomy and lymph nodes of her left arm removed, thyroid disease, rheumatoid arthritis, hypothyroidism, tinnitus, hypertension, hyperlipidemia. -Patient has significantly declined in energy, functionality, and cognition since her hospitalization for flu back in August 2017. -Subsequent to her hospitalization, she had a bout with C. difficile, treated with vancomycin. -For weeks she has remained in bed, very lethargic, fatigued, significantly decreased appetite. -Steady weight loss, most recent 138 lbs 10/24/17. She was 167 lbs 08/08/17, prior to hospitalization. -She was just starting to regain her appetite and spend some more time out of bed, such as recently sitting in the common area for 4.5 hours. -She had been taken off contact precautions and her (in Hospice and also a resident of the [facility]) was back sleeping with her. -Today she had 3-4 episodes of loose stools. -Stool culture was taken to retest for C. difficile infection. -She is resting in bed, not wanting to get up nor eat. -Patient is very pleasant & cooperative, but noticeably less interactive, with decreased cognition and communication ability. Medications/Allergies - Medications Home Medications: Ambulatory Orders Medication Instructions Recorded Confirmed Folic Acid 1 mg PO DAILY 10/26/14 09/24/17 Levothyroxine [Synthroid] 150 mcg PO QDAC 10/26/14 09/24/17 Methotrexate 15 mg PO Q7D 10/26/14 09/24/17 Simvastatin 10 mg PO QPM 10/26/14 09/24/17 Acetaminophen [Pain Relief] 1,000 mg ORAL TID PRN 01/18/15 09/24/17 Aspirin [Low Dose Aspirin EC] 81 mg PO DAILY 04/12/15 09/24/17 Memantine HCl [Namenda] 5 mg PO DAILY 04/12/15 09/24/17 Metoprolol Tartrate 12.5 mg PO BID 04/12/15 09/24/17 ALPRAZolam [Xanax] 0.5 mg PO BID PRN 08/16/15 09/24/17 Diclofenac Sodium [Voltaren] 4 gm PO QID PRN 03/03/17 09/24/17 HYDROcod/ACETAM 5/325 [[place] 5/325] 0.5 - 1 tab PO Q4H PRN 03/03/17 09/24/17 Senna [Senokot] 8.6 mg PO BID PRN 03/03/17 09/24/17 Guaifenesin [Child Mucinex Chest 10 ml PO Q4H PRN 09/03/17 09/24/17 Congestion] Loperamide HCl [Loperamide] 2 mg PO PRN PRN MDD 16 mg 09/03/17 09/24/17 QUEtiapine [SEROquel] 50 mg PO 1200,1800 MDD GDR down to 09/03/17 09/24/17 50mg BID Benzonatate 100 mg PO TID PRN 09/11/17 09/24/17 Multivitamin/Iron/Folic Acid 1 tab PO DAILY 09/11/17 09/24/17 [Centrum Women Tablet] Ondansetron [Zuplenz] 4 mg PO Q6H PRN 09/11/17 09/24/17 Tofacitinib Citrate [Xeljanz Xr] 11 mg PO DAILY 09/11/17 09/24/17 Saccharomyces [place]ii [Florastor] 250 mg PO BID MDD for 12 weeks 10/28/1703/09 Vancomycin [Vancocin] 125 mg PO .EVERY 3 DAYS MDD For 8 10/28/17 10/28/17 weeks Vancomycin [Vancocin] 125 mg PO BID MDD For 7 days, then 10/28/17 10/28/17 Vancomycin [Vancocin] 125 mg PO DAILY MDD For 7 days, 10/28/17 10/28/17 then Vancomycin [Vancocin] 125 mg PO QID MDD For 14 days, then 10/28/17 10/28/17 - Allergies Allergies/Adverse Reactions: Allergies Allergy/AdvReac Type Severity Reaction Status Date / Time ketamine AdvReac Unknown Verified 10/26/14 16:44 Review of Systems - Constitutional Constitutional: reports: Fatigue, Weakness, Poor appetite, Weight loss (29 lb [ 17.4%] weight loss since July. 138 lbs 10/24/17. 145 lbs 10/17/17. 148 lbs . 155 lbs 09/12/17. 168 lbs 08/22/17. 167 lbs 08/08/17.) - Respiratory Respiratory: denies: SOB at rest - Gastrointestinal Gastrointestinal: reports: Diarrhea, Change in bowel habits. denies: Poor appetite - Genitourinary Genitourinary: reports: Incontinence - Neurological Neurological: reports: General weakness, Memory problems - Psychiatric Psychiatric: denies: Delusions, Behavior disturbances (none recently) - Other Findings Other Findings: Unable to obtain complete ROS due to advanced dementia. Caregiver supplied some of ROS. Physical Exam - Vital Signs Temperature: 96.5 F Pulse Rate: 85 O2 Saturation: 98 (room air) Blood Pressure: 125/72 - Physical Exam General Appearance: positive: No acute distress Eyes Bilateral: positive: No lid inflammation, Conjunctivae nml, No scleral icterus ENT: positive: No signs of dehydration Neck: positive: No JVD, Trachea midline Cardiovascular: positive: Regular rate & rhythm, No murmur, No gallop Respiratory: positive: No respiratory distress, Breath sounds nml Abdomen: positive: Soft, Nml bowel sounds, Tenderness (mild, in left lower quadrant). negative: Guarding Skin: positive: Pallor Extremities: positive: Non-tender, Nml appearance, No pedal edema Neurologic/Psychiatric: positive: Mood/affect nml, Disoriented to place, Disoriented to time Palliative Care - POLST Patient has POLST: Yes POLST Status: DNR, Comfort Measures Anorexia: Moderate (4-6) Constipation: No Performance Status: Patient had just started to recuperate, eating a little better and becoming less lethargic and tired and starting to get out of bed more frequently. She had spent 4.5 hours up in the recliner recently. Now she is very fatigued, back in bed, not wanting to get out for meal. Has multiple episodes of loose stools. - Palliative Care Discussion: Spoke to son, who repeats that comfort and quality of life are the priorities. He has a realistic understanding of his parents' health status, and states, "I' m under no illusion they're under a sentence." His father is currently in Hospice, and he is supportive of his mother transitioning to Hospice when appropriate when criteria are met. She may be very close to meeting criteria, with her 29 lb weight loss and a possible new C diff infection. Impression and Recommendations - Palliative Care Impression: This is a pleasant 82 year old woman with advanced dementia who has significantly declined since hospitalization for the flu in August 2017 and a colitis infection with C difficile. She has lost weight, and was showing improvement although had not yet regained her baseline strength and functionality, and today she had several acute episodes of diarrhea. She is being tested for a reinfection of Clostridium difficile. Recommendations/Counseling Done: Diarrhea, acute: Starting today, 3-4 episodes of loose stools. Took stool sample to test for C diff infection. New order for [facility]: Offer one electrolyte replacement drink (eg, Gatorade) once daily and prn. Continue to encourage regular hydration with water, juice, other fluids. Failure to thrive: Was making some progress with getting out of bed for longer periods. Weight loss continues -- 29 lbs since Jul, 17.4%. Most recent weight is 138 lbs on 10/24. Previous weight was 145 lbs on 10/17, and her previous baseline was in the 160s. She weighed 167 lbs on 08/08/17, prior to her hospitalization. New order for [facility]: Add nutritional supplement/meal replacement energy/protein shake once a day, and also provide one for each meal where less than 50% has been consumed. Advanced care planning: DNR and comfort. Son's main concern as always is to keep her comfortable as possible and concentrate on quality of life. Considering transfer to Hospice. Follow up on C diff results. ------- ADDENDUM: 10/28/17 9:00am Stool sample is positive for toxigenic clostridium difficile. Spoke with PCP, Dr Gutiérrez, who agreed with the following plan: Vancomycin 125 mg PO four times daily x 14 days, then Vancomycin 125 mg PO twice daily x 7 days, then Vancomycin 125 mg PO daily x 7 days, then Vancomycin 125 mg PO every 3 days x 8 weeks Florastor 250 mg BID x 12 weeks. Coordinated with AF and PCP, faxed orders to [facility], and spoke again with son regarding possible transition to Hospice. ------- Time Spent: 35 minutes were spent with more than 50% of the time spent on counseling, education, and coordination of care
== END 2017-10-27 14:11 | disposition home or self-care (01) ==
LOC: PC 14:10
PROVIDERS: ATTEND Nurse Practitioner
DX: Z51.5 Encounter for palliative care (principal); A04.71 Enterocolitis due to Clostridium difficile, recurrent; R62.7 Adult failure to thrive; R63.4 Abnormal weight loss; G30.9 Alzheimer's disease, unspecified; F02.81 Dementia in other diseases classified elsewhere, unspecified severity, with behavioral disturbance; I10 Essential (primary) hypertension; Z86.19 Personal history of other infectious and parasitic diseases; Z66 Do not resuscitate

== ENCOUNTER 2017-12-04 12:35 | Outpatient (CLI) | payer MEDICARE, OTHER, MEDICAID ==
--- NOTE | 2017-12-04 21:49 | CONSULTATION NOTE ---
Palliative Care Follow Up - Referral Referring Provider: Dr Gutiérrez Time of Visit: 12/04/2017. 12:35 - 13:05 Referral setting: Adult Family Home (Seen in home setting due to taxing and considerable effort required to leave the home due to lower extremity weakness, failure to thrive, and advancing dementia.) Referral Reason: C difficile colitis - Information Sources Records reviewed: Previous records reviewed History/Review of Systems obtained from: Patient, Caregiver Exam limitations: Clinical condition (advanced dementia / cognitivie deficits) - History of Present Illness Update Brief HPI Update: -82-year-old woman with advanced dementia who had the flu back in August 2017, with subsequent declining functionality and cognition, exacerbated by C. difficile infection. -Medical history: Advanced dementia, anxiety, paranoia behavior, intermittent hallucinations with a history of recurrent UTIs, CT with stent placement in 2014 , history of breast cancer with a lumpectomy and lymph nodes of her left arm removed, thyroid disease, rheumatoid arthritis, hypothyroidism, tinnitus, hypertension, hyperlipidemia. -For long time patient's energy cognition and functionality were significantly decreased from her baseline, but she has been making some slow progress. 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 During the stepdown process from 4 times daily to 2 times daily her colitis increased, and so a new order was placed to go back to increased back to 4 times daily. -The facility did not follow through with the orders, and instead of the ongoing antibiotic treatments, treatment was stopped last week. -Since the patient continues to have loose stools with odor indicating C. difficile infection remains, the vancomycin regimen will be restarted on step- down schedule, details in Plan section. -Patient is very pleasant, interactive, sociable, and cooperative today. She says she wants to get out of bed, but is unable to do so without help. -Caregiver notes that her appetite has improved, she is still spending most of her time in bed and in her room but does get out more than she has in the recent past. -Some of her anxiety and "got a get up and go" restlessness has returned, generally about 1:59 PM in the afternoon. This is her coming back. -The registration clerk had said they wanted to discontinue her RA medications while she is infected with C. difficile, but it took several weeks for them to actually respond and give the facility an order to do this. The order finally came through yesterday. Social History - Living Situation Living arrangement: Adult family home ([facility] [address]) Living Situation: With caregiver(s) Support System: Son, Mundo, and his family live in the area. They were visiting today, the patient, and also the patient's , who also lives at the Adult Family Home , and who is in Hospice. Medications/Allergies - Medications Home Medications: Ambulatory Orders Medication Instructions Recorded Confirmed Folic Acid 1 mg PO DAILY 10/26/14 09/24/17 Levothyroxine [Synthroid] 150 mcg PO QDAC 10/26/14 09/24/17 Simvastatin 10 mg PO QPM 10/26/14 09/24/17 Acetaminophen [Pain Relief] 1,000 mg ORAL TID PRN 01/18/15 09/24/17 Aspirin [Low Dose Aspirin EC] 81 mg PO DAILY 04/12/15 09/24/17 Memantine HCl [Namenda] 5 mg PO DAILY 04/12/15 09/24/17 Metoprolol Tartrate 12.5 mg PO BID 04/12/15 09/24/17 ALPRAZolam [Xanax] 0.5 mg PO BID PRN 08/16/15 09/24/17 Diclofenac Sodium [Voltaren] 4 gm PO QID PRN 03/03/17 09/24/17 HYDROcod/ACETAM 5/325 [[place] 5/325] 0.5 - 1 tab PO Q4H PRN 03/03/17 09/24/17 Senna [Senokot] 8.6 mg PO BID PRN 03/03/17 09/24/17 Guaifenesin [Child Mucinex Chest 10 ml PO Q4H PRN 09/03/17 09/24/17 Congestion] Loperamide HCl [Loperamide] 2 mg PO PRN PRN MDD 16 mg 09/03/17 09/24/17 QUEtiapine [SEROquel] 50 mg PO 1200,1800 MDD GDR down to 09/03/17 09/24/17 50mg BID Benzonatate 100 mg PO TID PRN 09/11/17 09/24/17 Multivitamin/Iron/Folic Acid 1 tab PO DAILY 09/11/17 09/24/17 [Centrum Women Tablet] Ondansetron [Zuplenz] 4 mg PO Q6H PRN 09/11/17 09/24/17 Saccharomyces Boulardii [Florastor] 250 mg PO BID MDD for 12 weeks 10/28/1703/09 Vancomycin [Vancocin] 125 mg PO .EVERY 3 DAYS MDD For 8 10/28/17 10/28/17 weeks Vancomycin [Vancocin] 125 mg PO BID MDD For 7 days, then 10/28/17 10/28/17 Vancomycin [Vancocin] 125 mg PO DAILY MDD For 7 days, 10/28/17 10/28/17 then Vancomycin [Vancocin] 125 mg PO QID MDD For 14 days, then 10/28/17 10/28/17 - Allergies Allergies/Adverse Reactions: Allergies Allergy/AdvReac Type Severity Reaction Status Date / Time ketamine AdvReac Unknown Verified 10/26/14 16:44 Review of Systems - Constitutional Constitutional: reports: Fatigue, Weakness, Poor appetite (but improving), Weight loss (135 lbs on 11/28/17. She has lost 30 lbs since August 2017 / May 2017. Her former baseline was ~165 lbs at that time. Previous to that , she weighed ~185 lbs.) - Ears, Nose & Throat Ears, Nose & Throat: reports: Hearing loss - Cardiovascular Cardiovascular: reports: Decr. exercise tolerance - Gastrointestinal Gastrointestinal: reports: Diarrhea (chronic loose stools, with the distinctive C diff odor) - Genitourinary Genitourinary: reports: Incontinence - Musculoskeletal Musculoskeletal: reports: Transfer issues (requires help with transfers) - Neurological Neurological: reports: General weakness, Memory problems - Psychiatric Psychiatric: reports: Aggitation (occasional), Behavior disturbances (occasional ) - Endocrine Endocrine: reports: Hypothyroidism Physical Exam - Vital Signs Temperature: 96.5 F Pulse Rate: 95 O2 Saturation: 95 (room air) - Physical Exam General Appearance: positive: No acute distress, Alert Eyes Bilateral: positive: EOMI, No lid inflammation, Conjunctivae nml, No scleral icterus ENT: positive: No signs of dehydration Neck: positive: Trachea midline Cardiovascular: positive: Regular rate & rhythm, No murmur Respiratory: positive: No respiratory distress, Breath sounds nml, Diminished throughout Skin: positive: No symptoms Extremities: positive: No pedal edema Neurologic/Psychiatric: positive: Mood/affect nml, Disoriented to place, Disoriented to time Palliative Care - POLST Patient has POLST: Yes POLST Status: DNR, Comfort Measures Pain: No pain Tiredness/Fatigue: Moderate (4-6) Anxiety: Mild (1-3) Anorexia: Moderate (4-6) Sleep: Other (Excessive) Constipation: No - Palliative Care Discussion: She remains 30 less than her former weight -- 165 lbs 6 months ago. But she has recently shown some improvement in appetite and increased mobility and function, although not back to her former baseline functionality. Impression and Recommendations - Palliative Care Impression: This is a pleasant 82-year-old woman with advanced dementia and significant weight loss and decline since a bout with flu last August followed by C. difficile infection, which is still not resolved. A step-down vancomycin regimen had been started and then ended early, it is now being restarted. Rheumatology has discontinued her two RA medications (methotrexate and Xeljanz) due to lowering the immune system. Palliative care will continue to monitor and provide ongoing support, and transition her to hospice when appropriate. Recommendations/Counseling Done: C difficile colitis: Recurrent infection, patient still has foul smelling loose stools, though improved. Previous regimen started 28 October was stopped early in error. Pharmacy provided liquid Vancomycin. New order is: Vancomycin 125mg PO 4x/day x 7 days. Then 125mg PO 2x/day x 7 days. Then 125mg PO daily x 7 days. Then 125mg PO every 3 days x 8 weeks. Also: Florestor (or generic equivalent probiotic) 250mg BID x 12 weeks. Failure to thrive: Improved. Patient is now eating and drinking well. Weight is still 30 lbs less than previous baseline of 165 back in May 2017, and August 2017. Previous to that, it was 185 lbs. She is now at 135 lbs. Pain, rheumatoid arthritis: Stable at present. The order from registration clerk to stop Xeljanz and methotrexate just came through. So far, no complaints of increased pain. Need to monitor closely. Use Rockport and Tylenol as needed. Advanced care planning: POLST in place, DNR and comfort care. No update: comfort , quality of life is still the son's goal. Follow up 1-2 weeks. Time Spent: 30 minutes were spent with more than 50% of the time spent on counseling, education, and coordination of care.
== END 2017-12-04 12:36 | disposition home or self-care (01) ==
LOC: PC 12:35
PROVIDERS: ATTEND Nurse Practitioner
DX: Z51.5 Encounter for palliative care (principal); A04.71 Enterocolitis due to Clostridium difficile, recurrent; T36.8X6A Underdosing of other systemic antibiotics, initial encounter; Z91.138 Patient's unintentional underdosing of medication regimen for other reason; Y92.129 Unspecified place in nursing home as the place of occurrence of the external cause; R62.7 Adult failure to thrive; M06.9 Rheumatoid arthritis, unspecified; G30.9 Alzheimer's disease, unspecified; F02.81 Dementia in other diseases classified elsewhere, unspecified severity, with behavioral disturbance; F05 Delirium due to known physiological condition; I10 Essential (primary) hypertension; Z79.899 Other long term (current) drug therapy; Z66 Do not resuscitate

== ENCOUNTER 2018-01-11 14:55 | Outpatient (CLI) | payer MEDICARE, OTHER, MEDICAID ==
--- NOTE | 2018-01-11 18:24 | CONSULTATION NOTE ---
Palliative Care Follow Up - Referral Referring Provider: Dr Gutiérrez Time of Visit: 01/11/2018. 14:55 - 15:50 Referral setting: Adult Family Home (Seen in home setting due to taxing and considerable effort required to leave the home due to lower extremity weakness, failure to thrive, and advancing dementia.) Referral Reason: R knee pain, failure to thrive - Information Sources Records reviewed: Previous records reviewed History/Review of Systems obtained from: Patient, Family, Caregiver Exam limitations: Clinical condition (dementia) - History of Present Illness Update Brief HPI Update: FACE TO FACE: GROUP I /HANNAH MATTRESS: Due to debility as a result of advanced dementia exacerbated by C difficile infection and treatment, patient has limited mobility in bed and requires a Group 1 support surface to promote healthy skin integrity, as well as reduce occurrence of decubitus ulcers while in bed. As a result of advanced dementia, patient also suffers from fecal and urinary incontinence which can decrease skin integrity if not managed. Group 1 support will promote healthy skin integrity. -82 year old female with advanced dementia, with steady decline in functionality and mobility since influenza back in August 2017 exacerbated by C difficile colitis. She is in the second round of vancomycin extended treatment, now at the stage of 125mg PO every 3 days for 8 weeks. She is 2-3 weeks into this stage. -Caregiver reports stool is not runny and doesn't have the distinctive C diff odor. Patient does have loose stools. -Her functionality and mobility have decreased significantly since her flu, she remains bedbound with sporadic periods of more energy when she is up in a wheelchair and in the common room with the other [facility] residents. Most of the time , however, she remains isolated in her bedroom, in bed. -Dr Jack, her greens tier DC'd Xeljanz and methotrexate while she is taking vancomycin. So her R leg pain has increased particularly the R knee, which is swollen and tender. She is being given Tylenol as needed, but often she denies pain. -She is conversant and pleasant today, making eye contract and responding appropriately to questions and comments. She is reading a book in bed. -She is at risk of developing pressure wounds due to immobility and non- adherence to repositioning. She has what looks like a bruise in sacral area, it doesn't appear to be a Stage I pressure wound at this point. She would benefit from alternating pressure mattress. -Patient is incontinent, briefs were soaked through. Remind staff to check frequently and reposition. -Appetite is poor and fluctuates. Offer smaller, more frequent meals. Social History - Living Situation Living arrangement: Adult family home ([facility]) Living Situation: With caregiver(s) Support System: SonReyes, and his family live in the vicinity and visit regularly. Her lives in the same AF; he has very advanced dementia and is on Hospice. They no longer share a room. When she sees him she does recognize him, but is not upset or agitated when he is absent from her sight. Medications/Allergies - Medications Home Medications: Ambulatory Orders Medication Instructions Recorded Confirmed Folic Acid 1 mg PO DAILY 10/26/14 01/11/18 Levothyroxine [Synthroid] 150 mcg PO QDAC 10/26/14 01/11/18 Simvastatin 10 mg PO QPM 10/26/14 01/11/18 Acetaminophen [Pain Relief] 1,000 mg ORAL BID 01/18/15 01/11/18 Aspirin [Low Dose Aspirin EC] 81 mg PO DAILY 04/12/15 01/11/18 Memantine HCl [Namenda] 5 mg PO DAILY 04/12/15 01/11/18 Metoprolol Tartrate 12.5 mg PO BID 04/12/15 01/11/18 ALPRAZolam [Xanax] 0.5 mg PO BID PRN 08/16/15 01/11/18 Diclofenac Sodium [Voltaren] 4 gm PO QID PRN 03/03/17 01/11/18 HYDROcod/ACETAM 5/325 [[place] 5/325] 0.5 - 1 tab PO Q4H PRN 03/03/17 01/11/18 Senna [Senokot] 8.6 mg PO BID PRN 03/03/17 01/11/18 Guaifenesin [Child Mucinex Chest 10 ml PO Q4H PRN 09/03/17 01/11/18 Congestion] Loperamide HCl [Loperamide] 2 mg PO PRN PRN MDD 16 mg 09/03/17 01/11/18 QUEtiapine [SEROquel] 50 mg PO 1200,1800 MDD GDR down to 09/03/17 01/11/18 50mg BID Multivitamin/Iron/Folic Acid 1 tab PO DAILY 09/11/17 01/11/18 [Centrum Women Tablet] Ondansetron [Zuplenz] 4 mg PO Q6H PRN 09/11/17 01/11/18 Saccharomyces Boulardii [Florastor] 250 mg PO BID MDD for 12 weeks 10/28/17 Vancomycin [Vancocin] 125 mg PO .EVERY 3 DAYS MDD For 8 10/28/17 01/11/18 weeks Acetaminophen 1,000 mg PO DAILY PRN 01/11/18 01/11/18 - Allergies Allergies/Adverse Reactions: Allergies Allergy/AdvReac Type Severity Reaction Status Date / Time ketamine AdvReac Unknown Verified 10/26/14 16:44 Review of Systems - Constitutional Constitutional: reports: Fatigue, Weakness, Poor appetite, Weight loss (Unable to take current weight due to inability to stand and resistance to yanni lift. Last weight taken was 135 lb 11/28/17. She lost 30 lbs sicne August 2017/May 2017. Former baseline was 165 lbs, and previous to that was 185 lbs. Arm circumference today is 29cm R bicep) - Eyes Eyes: reports: Corrective lenses - Ears, Nose & Throat Ears, Nose & Throat: reports: Hearing loss - Cardiovascular Cardiovascular: reports: Decr. exercise tolerance. denies: Irregular heart rate - Respiratory Respiratory: denies: Cough, Sputum production, SOB at rest - Gastrointestinal Gastrointestinal: reports: Poor appetite - Genitourinary Genitourinary: reports: Incontinence (bowel and bladder) - Musculoskeletal Musculoskeletal: reports: Limited range of motion (R knee), Joint pain, Joint swelling (R knee - rheumatoid arthritis), Assistive devices (wheelchair) - Neurological Neurological: reports: Focal weakness (RLE cannot bear weight), Memory problems - Endocrine Endocrine: reports: Hypothyroidism - Hematologic/Lymphatic Hematologic/Lymphatic: reports: Recurrent infections (C difficile colitis) Physical Exam - Vital Signs Temperature: 97.3 F Pulse Rate: 90 O2 Saturation: 94 Blood Pressure: 135/68 - Physical Exam General Appearance: positive: No acute distress, Alert Eyes Bilateral: positive: EOMI, No lid inflammation, Conjunctivae nml, No scleral icterus ENT: positive: No signs of dehydration Neck: positive: Trachea midline Cardiovascular: positive: Regular rate & rhythm Respiratory: positive: Chest non-tender, No respiratory distress, Diminished throughout Abdomen: positive: Non-tender, Soft, Nml bowel sounds Skin: positive: Other (Some discoloration in gluteal cleft/coccyx, doesn't appear to be Stage I pressure.) Neurologic/Psychiatric: positive: Motor nml, Mood/affect nml, Disoriented to place, Disoriented to time Palliative Care - POLST Patient has POLST: Yes POLST Status: DNR, Comfort Measures Pain: Location (R knee; rheumatoid arthritis) Tiredness/Fatigue: Moderate (4-6) Drowsiness/Sedation: None Anxiety: None Anorexia: Moderate (4-6) Constipation: No Performance Status: Slow decline. Increased sleeping. Appetite inconsitent; weight loss. Increased pain in R knee secondary to rheumatoid arthritis medication on hold until the vancomycin antibiotic regimen has completed. - Palliative Care Discussion: Spoke with son regarding his mother's slow, steady decline. The greens tier has stopped Xeljanz and methotrexate until Vancomycin regimen has stopped. When that happens, the son will request the greens tier to order another blood draw prior to restarting the RA medicine. The patient's RA pain and swelling in R knee have increased since the medications have been on hold, but we discussed and agreed to continue the taper of vanco 125mg every 3 days for the entire 8-week period. It has about 6 more weeks to go. The patient already had one rebound of C diff. Impression and Recommendations - Palliative Care Impression: This is an 82 year old woman with advanced dementia, significant weight loss and functional decline. She has had a difficult C diff infection that is still being treated with vancomycin, every 3 days. The antibiotic should be completed in 6 weeks. Her RA pain has increased due to RA meds (methotrexate and Xeljanz) being on hold until the vancomycin is complete. Recommendations/Counseling Done: C difficile colitis: Asymptomatic; has loose stools, but not runny or odorous. Currently on Vancomycin 125mg PO Q3 days for 8 weeks. There is approximately 6 weeks left of that cycle. R knee pain, RA: Worsening. RA medications Xeljanz and methotrexated on hold until Vancomycin regimen is completed. When it's completed, patient's son will request Dr Jack (greens tier) to reorder blood draw. He will need that to restart RA medications. Changed Tylenol to 1000mg PO BID routine, and Tylenol 1000 mg PO daily as needed. Tylenol not to exceed 3,000mg in 24 hours. Also reminded caregiver staff that patient has [place] 5/325mg as needed and they can use that for breakthrough pain, as long as they don't exceed the 3,000 mg limit. Failure to thrive: Patient continues with inconsistent appetite, and sleeps the majority of the time. Her appetite and functionality fluctuates from week to week. She resists getting out of bed much of the time. Caregivers continue to encourage her to join the rest of the residents; she does this perhaps 1-2x/ week. Incontinence, immobility, and risk of pressure wounds: Recommend alternating pressure mattress. See HPI. Patient already has a semi-electric hospital bed. Advanced care planning: POLST is DNR and comfort. Family is focused on comfort and pain control. Palliative care continues to offer support and monitoring, with transition to Hospice when criteria are met. Follow up 1-2 weeks, and after Vanco is completed. Time Spent: 55 minutes were spent with more than 50% of the time spent on counseling, education, and coordination of care.
== END 2018-01-11 14:56 | disposition home or self-care (01) ==
LOC: PC 14:55
PROVIDERS: ATTEND Nurse Practitioner
DX: Z51.5 Encounter for palliative care (principal); A04.71 Enterocolitis due to Clostridium difficile, recurrent; M06.9 Rheumatoid arthritis, unspecified; R62.7 Adult failure to thrive; G30.9 Alzheimer's disease, unspecified; F02.81 Dementia in other diseases classified elsewhere, unspecified severity, with behavioral disturbance; R32 Unspecified urinary incontinence; R15.9 Full incontinence of feces; Z74.01 Bed confinement status; Z79.899 Other long term (current) drug therapy; Z86.19 Personal history of other infectious and parasitic diseases; Z66 Do not resuscitate

== ENCOUNTER 2018-02-15 09:35 | Outpatient (CLI) | payer MEDICARE, OTHER, MEDICAID ==
[2018-02-15 14:02] LABS: ALBUMIN 3.1 g/dL (3.2-5.5); ALBUMIN/GLOBULIN RATIO 0.8 (1.0-2.2); ALKALINE PHOSPHATASE 52 IU/L (42-121); ALT ALANINE AMINOTRANSFERASE 24 IU/L (10-60); AST ASPARTATE AMINOTRANSFERASE 21 IU/L (10-42); BILIRUBIN,TOTAL 0.9 mg/dL (0.2-1.0); BUN - BLOOD UREA NITROGEN 21 mg/dL (6-20); CALCIUM 9.3 mg/dL (8.5-10.3); CARBON DIOXIDE - CO2 22 mmol/L (21-32); CHLORIDE 101 mmol/L (101-111); CHOL/HDL RATIO 3.4 (<4.4); CHOLESTEROL 123 mg/dL; CREATININE 0.8 mg/dL (0.4-1.0); GFR - MDRD 69 (>89); GLUCOSE 86 mg/dL (70-100); HDL CHOLESTEROL 36 mg/dL; LDL CHOLESTEROL,CALCULATED 65 mg/dL; LDL/HDL RATIO 1.8 (<4.4); SODIUM 135 mmol/L (135-145); TOTAL PROTEIN 7.2 g/dL (6.7-8.2); VLDL CHOLESTEROL 22 mg/dL
[2018-02-15 14:52] LABS: BASOPHILS # (AUTO) 0.1 10^3/uL (0.0-0.1); BASOPHILS % (AUTO) 0.9 %; EOSINOPHILS # (AUTO) 0.4 10^3/uL (0.0-0.7); HGB - HEMOGLOBIN 12.4 g/dL (12.0-16.0); LYMPHOCYTES # (AUTO) 2.1 10^3/uL (1.5-3.5); LYMPHOCYTES % (AUTO) 17.8 %; MEAN CORPUSCULAR HGB CONC 33.1 g/dL (32.0-36.0); MEAN CORPUSCULAR VOLUME 90.7 fL (81.0-99.0); MEAN PLATELET VOLUME 9.1 fL (7.9-10.8); MONOCYTES # (AUTO) 0.8 10^3/uL (0.0-1.0); NEUTROPHILS # (AUTO) 8.5 10^3/uL (1.5-6.6); NEUTROPHILS % (AUTO) 71.3 %; PLT - PLATELET COUNT 410 10^3/uL (130-450); RED BLOOD COUNT 4.13 10^6/uL (4.20-5.40); RED CELL DISTRIBUTION WIDTH 14.8 % (12.0-15.0)
== END 2018-02-15 09:36 | disposition home or self-care (01) ==
LOC: LAB.R 09:35
PROVIDERS: ATTEND Nurse Practitioner Adult Health
DX: M06.9 Rheumatoid arthritis, unspecified (principal)
CPT/HCPCS: 80053; 80061; 83721; 85025; 85651

== ENCOUNTER 2018-02-15 09:45 | Outpatient (CLI) | payer MEDICARE, OTHER, MEDICAID ==
--- NOTE | 2018-02-15 16:38 | CONSULTATION NOTE ---
Palliative Care Follow Up - Referral Referring Provider: Dr. Gregoria Gutiérrez Time of Visit: [id number] Referral setting: Adult Family Home ([facility] [place]; caregiver Ricardo present for visit) Referral Reason: Alz. Dementia/RA - Information Sources Records reviewed: Previous records reviewed History/Review of Systems obtained from: Patient, Caregiver Exam limitations: Clinical condition (patient with Alz. only able to answer questions in the moment; poor STM;) - History of Present Illness Update Brief HPI Update: This is an 82-year-old woman with advanced Alzheimer's, she has had steady decline as a result of influenza in August 2017, this was complicated by her C. difficile colitis. She has been on extended treatment, and is to be finished up on 02/17. She is continue to have soft stools, but no concerns for diarrhea. Her appetite is returned, she is much brighter, unfortunately she is isolated in her room as a result of her severe right knee pain. She has had to be off of her rheumatoid arthritis medications, and has had an exacerbation of her right leg pain particularly in her right knee which does appear swollen, it is not red or hot, but is tender to touch. She has been on scheduled acetaminophen , but has not been receiving hydrocodone 5 mg/325 mg she often refuses her pills as a result of her dementia. She is currently on HANNAH mattress, she second shows no signs or symptoms of skin breakdown. She does though have diminished breath sounds in her bases, she does sleep slumped down in the bed, and has very little interaction and is quite isolated. The other concern is she is having some increased agitation given her returning to taking food and fluids, and feeling somewhat better. When they do Florian out, particularly in the morning, she forgets that she is demented, and tries to get out of the wheelchair. They had decreased her quetiapine as a result of her decline, but are noticing increased behaviors particularly managing in the morning. Social History - Living Situation Living arrangement: Adult family home Support System: present as well, on hospice; Son oversees her medical care and visits regularly Medications/Allergies - Medications Home Medications: Ambulatory Orders Medication Instructions Recorded Confirmed Folic Acid 1 mg PO DAILY 10/26/14 02/15/18 Levothyroxine [Synthroid] 150 mcg PO QDAC 10/26/14 02/15/18 Simvastatin 10 mg PO QPM 10/26/14 02/15/18 Acetaminophen [Pain Relief] 1,000 mg ORAL BID 01/18/15 02/15/18 Aspirin [Low Dose Aspirin EC] 81 mg PO DAILY 04/12/15 02/15/18 Memantine HCl [Namenda] 5 mg PO DAILY 04/12/15 02/15/18 Metoprolol Tartrate 12.5 mg PO BID 04/12/15 02/15/18 ALPRAZolam [Xanax] 0.5 mg PO BID PRN 08/16/15 02/15/18 Diclofenac Sodium [Voltaren] 4 gm PO QID PRN 03/03/17 02/15/18 HYDROcod/ACETAM 5/325 [[place] 5/325] 0.5 - 1 tab PO Q4H PRN 03/03/17 02/15/18 Senna [Senokot] 8.6 mg PO BID PRN 03/03/17 02/15/18 Guaifenesin [Child Mucinex Chest 10 ml PO Q4H PRN 09/03/17 02/15/18 Congestion] Loperamide HCl [Loperamide] 2 mg PO PRN PRN MDD 16 mg 09/03/17 02/15/18 QUEtiapine [SEROquel] 50 mg PO .0800.1200.1800 MDD GDR 09/03/17 02/16/18 down to 50mg BID Multivitamin/Iron/Folic Acid 1 tab PO DAILY 09/11/17 02/15/18 [Centrum Women Tablet] Ondansetron [Zuplenz] 4 mg PO Q6H PRN 09/11/17 02/15/18 Saccharomyces Boulardii [Florastor] 250 mg PO BID MDD for 12 weeks 10/28/17 Vancomycin [Vancocin] 125 mg PO .EVERY 3 DAYS MDD For 8 10/28/17 02/15/18 weeks Acetaminophen 1,000 mg PO DAILY PRN 01/11/18 02/15/18 Hydrocodone/Acetaminophen 1 tab PO .0800, 1200 02/16/18 02/16/18 [Hydrocodone-Acetamin 5-325 mg] - Allergies Allergies/Adverse Reactions: Allergies Allergy/AdvReac Type Severity Reaction Status Date / Time ketamine AdvReac Unknown Verified 10/26/14 16:44 Review of Systems - Constitutional Constitutional: reports: Fatigue - Ears, Nose & Throat Ears, Nose & Throat: reports: Hearing loss (mild) - Cardiovascular Cardiovascular: reports: Decr. exercise tolerance. denies: Chest pain - Respiratory Respiratory: denies: SOB at rest - Gastrointestinal Gastrointestinal: reports: Good appetite - Genitourinary Genitourinary: reports: Incontinence - Musculoskeletal Musculoskeletal: reports: Back pain, Muscle aches, Stiffness, Limited range of motion, Muscle weakness, Joint pain (right knee), Transfer issues (using florian for transfers; does not bear weight for pivot transfers on right) - Integumentary Integumentary: reports: Dryness - Neurological Neurological: reports: General weakness, Memory problems - Psychiatric Psychiatric: reports: Anxiety, Behavior disturbances - Endocrine Endocrine: reports: Hypothyroidism - Hematologic/Lymphatic Hematologic/Lymphatic: reports: Other (off RA medications) - Other Findings Other Findings: limited ROS Physical Exam - Vital Signs Temperature: 96.7 C Pulse Rate: 68 Respiratory Rate: 18 Blood Pressure: 162/82 - Physical Exam General Appearance: positive: No acute distress, Anxious Eyes Bilateral: positive: Normal inspection ENT: positive: No signs of dehydration Neck: positive: No JVD, Trachea midline Cardiovascular: positive: Regular rate & rhythm Respiratory: positive: Diminished in bases Abdomen: positive: Non-tender, Soft, Nml bowel sounds Skin: positive: Pallor, Other (coccyx clear) Extremities: positive: No pedal edema, Joint swelling (right knee swollen; not red but very tender to touch; guarding behavoirs; unable to move on command; can move left leg) Neurologic/Psychiatric: positive: Mood/affect nml, Disoriented to person, Disoriented to place, Disoriented to time, Weakness. negative: Unintelligible speech Palliative Care - POLST Patient has POLST: Yes POLST Status: DNR, Selective Treatment Pain: Pain worsening, Severity (Right knee pain very severe, currently on APAP scheduled twice daily. They have not been using hydrocodone more than couple times in the last month. The patient does present with signs and symptoms of acute distress with manipulation. They have not also either done the Voltaren gel as she does not tolerate touch. They have observed she is not sedated when she does take the hydrocodone, and does seem more comfortable.) Tiredness/Fatigue: Severe (7-10) Drowsiness/Sedation: Moderate (4-6) Nausea: None Depression: Mild (1-3) Anxiety: Moderate (4-6) Dyspnea: None Anorexia: None Sleep: Sleeps well Constipation: No Performance Status: Patient is mostly been bedbound, they have Florian lifted her up about every 2 or 3 days, but patient does try and get out of recliner and is more agitated out of her room as she forgets she is in pain, has not walked or weight born for several months. But she is also agitated and bored in her room as well, they bring her magazines, but have found it difficult with her isolation to keep her engaged. Results - Lab Results Lab results reviewed: Yes Impression and Recommendations - Palliative Care Impression: This is an 83-year-old woman with advanced Alzheimer's, she has had improvement in her intake, the remains mostly bedbound. At this point in time it does appear her C. difficile infection is responding to the vancomycin, she is to finish on 02/17. She her exacerbation of her RA has limited her mobility, increased her pain, labs were drawn in hopes to restart her soon. Patient remains at high risk for this sequela of bedbound status, not limited to skin breakdown and pneumonia. Palliative care to continue to provide support and monitoring of patient's fluctuating status, goals continue to focus on comfort and quality of life measures. Recommendations/Counseling Done: 1. Right knee pain. It is hopeful patient will restart her RA drugs, have spoken with son labs have been sent to Dr. Jack. Given patient's prolonged period of deconditioning and bedbound status, looking at strategy to best manage her Current limitations. Will go ahead and trial scheduling hydrocodone 5 mg/325 mg APAP in the a.m. and at noon, the goal will be to get her up in her wheelchair for breakfast, either continue to keep her up, or try again in the evening. 2. Dementia with behavioral disturbances. With patient feeling better, eating and drinking her underlying status is improved. Will go ahead and put her quetiapine back on in the a.m., and hopes to manage this so she can stay in her wheelchair and participate in her community. Concern regarding patient's ongoing isolation, and the need for increased stimulation. 3. RA. Labs drawn from right antecubital without any difficulty. Labs dropped off at [facility], and then faxed to her middle school librarian. He will follow up as well for plan. 4. Advanced care planning. Goals continue to be to focus on quality of life issues to discuss with son about patient needing to be up more, and a conference on phone following with Carmen regarding how best to facilitate this and the current setting. Will trial current strategy for 2 weeks and reevaluate both quetiapine and pain management Time Spent: Time spent 30 minutes was given 50% of this and coordination of care, counseling with staff, labs drawn and delivered.
== END 2018-02-15 09:46 | disposition home or self-care (01) ==
LOC: PC 09:45
PROVIDERS: ATTEND Nurse Practitioner Adult Health
DX: Z51.5 Encounter for palliative care (principal); M25.561 Pain in right knee; G30.9 Alzheimer's disease, unspecified; F02.81 Dementia in other diseases classified elsewhere, unspecified severity, with behavioral disturbance; M06.9 Rheumatoid arthritis, unspecified; A04.72 Enterocolitis due to Clostridium difficile, not specified as recurrent; M62.81 Muscle weakness (generalized); F41.9 Anxiety disorder, unspecified; Z79.82 Long term (current) use of aspirin; Z66 Do not resuscitate

== ENCOUNTER 2018-03-02 15:45 | Outpatient (CLI) | payer MEDICARE, OTHER, MEDICAID ==
--- NOTE | 2018-03-02 16:19 | CONSULTATION NOTE ---
Palliative Care Follow Up - Referral Referring Provider: Dr Gutiérrez Time of Visit: 03/02/2018. 12:45 -13:15 Referral setting: Adult Family Home (Seen in home setting due to taxing and considerable effort to leave the home secondary to advanced dementia, uncontrolled RA pain and confinement to wheelchair.) Referral Reason: Pain control - Information Sources Records reviewed: Previous records reviewed History/Review of Systems obtained from: Patient, Family, Caregiver Exam limitations: Clinical condition (short term memory deficits; advanced dementia) - History of Present Illness Update Brief HPI Update: -83-year-old woman with advanced dementia who has rebounded after about 6 months of decline in functionality starting with a flu last August. She had a long bout with C diff and now appears free from the infection after an extended regimen of Vancomycin which completed 02/17/18. -Medical history: Advanced dementia, RA, h/o C diff, anxiety, paranoia behavior, intermittent hallucinations with a history of recurrent UTIs, CT with stent placement in 2014, history of breast cancer with a lumpectomy and lymph nodes of her left arm removed, thyroid disease, hypothyroidism, tinnitus, hypertension, hyperlipidemia. -During her extended antibiotic regimen of vancomycin (for resistant C diff), her rheumatoligist Dr Jack took her off her RA medications and her RA pain has been uncontrolled since then. -She was receiving scheduled Tylenol, but not scheduled [place] since she was refusing it. Routine [place] BID was started two weeks ago. Herf Seroquel dosing had been cut back during her period of decline, and was recently increased back to TID since her behaviors started increasing over the past few weeks once she started feeling better, eating more, and sitting up in her wheelchair. -Today she is alert, pleasant, cooperative, sociable, and pushes herself in her wheelchair. Social History - Living Situation Living arrangement: Adult family home ([facility]) Living Situation: With caregiver(s) Support System: Her son, Reyes, is active in her care and visits regularly. Her lives in the same Adult Family Home, has endstage dementia and is on Hospice. Medications/Allergies - Medications Home Medications: Ambulatory Orders Medication Instructions Recorded Confirmed Folic Acid 1 mg PO DAILY 10/26/14 02/15/18 Levothyroxine [Synthroid] 150 mcg PO QDAC 10/26/14 02/15/18 Simvastatin 10 mg PO QPM 10/26/14 02/15/18 Acetaminophen [Pain Relief] 1,000 mg ORAL BID 01/18/15 02/15/18 Aspirin [Low Dose Aspirin EC] 81 mg PO DAILY 04/12/15 02/15/18 Memantine HCl [Namenda] 5 mg PO DAILY 04/12/15 02/15/18 Metoprolol Tartrate 12.5 mg PO BID 04/12/15 02/15/18 ALPRAZolam [Xanax] 0.5 mg PO BID PRN 08/16/15 02/15/18 Diclofenac Sodium [Voltaren] 4 gm PO QID PRN 03/03/17 02/15/18 HYDROcod/ACETAM 5/325 [[place] 5/325] 0.5 - 1 tab PO Q4H PRN 03/03/17 02/15/18 Senna [Senokot] 8.6 mg PO BID PRN 03/03/17 02/15/18 Guaifenesin [Child Mucinex Chest 10 ml PO Q4H PRN 09/03/17 02/15/18 Congestion] Loperamide HCl [Loperamide] 2 mg PO PRN PRN MDD 16 mg 09/03/17 02/15/18 QUEtiapine [SEROquel] 50 mg PO .0800.1200.1800 09/03/17 02/16/18 Multivitamin/Iron/Folic Acid 1 tab PO DAILY 09/11/17 02/15/18 [Centrum Women Tablet] Ondansetron [Zuplenz] 4 mg PO Q6H PRN 09/11/17 02/15/18 Saccharomyces Boulardii [Florastor] 250 mg PO BID MDD for 12 weeks 10/28/17 02/15/18 Acetaminophen 1,000 mg PO DAILY PRN 01/11/18 02/15/18 Hydrocodone/Acetaminophen 1 tab PO .0800, 1200 02/16/18 02/16/18 [Hydrocodone-Acetamin 5-325 mg] - Allergies Allergies/Adverse Reactions: Allergies Allergy/AdvReac Type Severity Reaction Status Date / Time ketamine AdvReac Unknown Verified 10/26/14 16:44 Review of Systems - Constitutional Constitutional: reports: Weight loss (most recent weight 135 lbs 11/28/17. Previous baseline was 165 lbs, and previous to that 185 lbs. Arm circumference 29cm on R bicep 01/11/18.). denies: Weakness, Poor appetite - Eyes Eyes: reports: Vision loss - Ears, Nose & Throat Ears, Nose & Throat: reports: Hearing loss - Respiratory Respiratory: denies: SOB at rest - Gastrointestinal Gastrointestinal: reports: Good appetite - Genitourinary Genitourinary: reports: Incontinence - Musculoskeletal Musculoskeletal: reports: Joint pain (All over but especially R knee - warm, swollen,, red) - Neurological Neurological: reports: Memory problems - Psychiatric Psychiatric: reports: Behavior disturbances (history of) - Hematologic/Lymphatic Hematologic/Lymphatic: reports: Recurrent infections (C diff) Physical Exam - Vital Signs Temperature: 96.5 F Pulse Rate: 89 O2 Saturation: 99 (room air) Blood Pressure: 136/87 (wrist cuff) - Physical Exam General Appearance: positive: No acute distress, Alert Eyes Bilateral: positive: EOMI, No lid inflammation, Conjunctivae nml, No scleral icterus ENT: positive: No signs of dehydration Neck: positive: No JVD, Trachea midline Cardiovascular: positive: No murmur Respiratory: positive: Diminished in bases Skin: positive: No symptoms Extremities: positive: No pedal edema, Joint swelling (R knee: warm, tender to palpation) Neurologic/Psychiatric: positive: Disoriented to place, Disoriented to time Palliative Care Pain: Location (L knee (RA)), Severity (moderate/severe), Comment (Pain improved with scheduled [place] but she still needs the RA meds restarted) Depression: None - Palliative Care Discussion: Labs were drawn 02/15/[address] Jack to restart RA medications since he had stopped them during the patient's antibiotic regimen. I spoke with son, Reyes, who checked with Dr Jack last week, leaving a message. Reyes planned to follow up tomorrow with Dr Jack about restarting her. I spoke with the MA today (not Huong, but another MA) who will check with the doctor and get back to us by if he doesn't respond. Impression and Recommendations - Palliative Care Impression: 83-year-old woman with advanced Alzheimer's had extended period of decline since last August, but has improved since an extended regimen of antibiotics for C diff colitis has resolved the colitis. She gets up in her wheelchair daily, is eating better and interacting with the other residents, and has also been started on routine [place] for her chronic pain. Seroquel dosing has increased back to TID due to increased behaviors since her functionality improved. RA pain is not well controlled since she has yet to be restarted on her RA medications. Palliative care will follow up with the head rose grower, and will continue to provide oversight and supportive care, with transition to hospice when appropriate. Recommendations/Counseling Done: RA, R knee pain: Poorly controlled, although some improvement with [place] BID routine. Palliative care is following up with Dr Jack, head rose grower, about restarting her RA medications since vancomycin is now completed. He received the lab draw about 2 weeks ago. The caregivers are getting her out of bed and into her wheelchair for breakfast and longer if tolerated. Today she was up at lunchtime. C diff colitis: Resolved after extended vancomycin regimen completed 02/17/18 Dementia with behavioral disturbances: Seroquel 50mg was increased back to TID (0800 1200 1800) since patient's behaviors increased once she started recuperating and getting out of bed. Advanced care planning: Goals are unchanged: Quality of life and pain control of RA. Son is supportive of hospice care when patient meets criteria. Follow up with head rose grower about restarting RA meds. Time Spent: 30 minutes were spent with more than 50% of the time spent on counseling, education, and coordination of care regarding pain control of rheumatoid arthritis.
== END 2018-03-02 15:46 | disposition home or self-care (01) ==
LOC: PC 15:45
PROVIDERS: ATTEND Nurse Practitioner
DX: Z51.5 Encounter for palliative care (principal); M06.9 Rheumatoid arthritis, unspecified; M25.561 Pain in right knee; G30.9 Alzheimer's disease, unspecified; F02.81 Dementia in other diseases classified elsewhere, unspecified severity, with behavioral disturbance; Z99.3 Dependence on wheelchair; F41.9 Anxiety disorder, unspecified; Z95.5 Presence of coronary angioplasty implant and graft; Z79.82 Long term (current) use of aspirin

== ENCOUNTER 2018-04-30 13:13 | Outpatient (CLI) | payer MEDICARE, OTHER, MEDICAID ==
--- NOTE | 2018-04-30 13:16 | CONSULTATION NOTE ---
Palliative Care Follow Up - Referral Referring Provider: Dr Gutiérrez Time of Visit: 04/30/2018. 9:30-10:15 Referral setting: Adult Family Home (Seen in home setting due to taxing and considerable effort to leave the home secondary to advanced dementia, RA pain and confinement to wheelchair.) Referral Reason: Chronic RA pain - Information Sources Records reviewed: Previous records reviewed History/Review of Systems obtained from: Patient, Family, Caregiver Exam limitations: Clinical condition (dementia; short term memory deficits) - History of Present Illness Update Brief HPI Update: -83-year-old woman with advanced dementia who has rebounded after about 6 months of decline in functionality starting with a flu last August. She had a long bout with C diff and now appears free from the infection after an extended regimen of Vancomycin which completed 02/17/18. -Medical history: Advanced dementia, RA, h/o C diff, anxiety, paranoia behavior, intermittent hallucinations with a history of recurrent UTIs, [place] with stent placement in 2014, history of breast cancer with a lumpectomy and lymph nodes of her left arm removed, thyroid disease, hypothyroidism, tinnitus, hypertension, hyperlipidemia. -Patient is up, alert and responsive today, appears to be back to her old baseline. Her sedation and drowsiness improved after her morning dose of seroquel was reduced to 12.5mg. -She reports R knee pain has improved; she is now receiving Humira injections twice monthly for RA pain. -Her appetite is good, and weight is 145 lbs. -Patient is no longer having loose stools. She has infrequent bowel movements, about 1-3x/week, and that's been her baseline since being at this [facility]. -Her son wants to to give her potato starch to "regulate" her elin and improved her bowel regularity, it's something he read in a diet book and uses himself with good results. -Today Palliative Care HR LEADER administered influenza vaccine. Social History - Living Situation Living arrangement: Adult family home ([facility]) Living Situation: With caregiver(s) Support System: Her son, Reyes, lives nearby and is involved with her care. Her , who lived at the [facility] with her, fairly recently. She has adjusted well. Medications/Allergies - Medications Home Medications: Ambulatory Orders Medication Instructions Recorded Confirmed Folic Acid 1 mg PO DAILY 10/26/14 04/30/18 Levothyroxine [Synthroid] 150 mcg PO QDAC 10/26/14 04/30/18 Simvastatin 10 mg PO QPM 10/26/14 04/30/18 Acetaminophen [Pain Relief] 1,000 mg ORAL BID 01/18/15 04/30/18 Aspirin [Low Dose Aspirin EC] 81 mg PO DAILY 04/12/15 04/30/18 Memantine HCl [Namenda] 5 mg PO DAILY 04/12/15 04/30/18 Metoprolol Tartrate 12.5 mg PO BID 04/12/15 04/30/18 ALPRAZolam [Xanax] 0.5 mg PO BID PRN 08/16/15 04/30/18 Diclofenac Sodium [Voltaren] 4 gm PO QID PRN 03/03/17 04/30/18 HYDROcod/ACETAM 5/325 [[place] 5/325] 0.5 - 1 tab PO Q4H PRN 03/03/17 04/30/18 Senna [Senokot] 8.6 mg PO DAILY 03/03/17 04/30/18 Loperamide HCl [Loperamide] 2 mg PO PRN PRN MDD 16 mg 09/03/17 04/30/18 QUEtiapine [SEROquel] 50 mg PO .1400.199909/03/17 04/30/18 guaiFENesin [Child Mucinex Chest 10 ml PO Q4H PRN 09/03/17 04/30/18 Congestion] Multivitamin/Iron/Folic Acid 1 tab PO DAILY 09/11/17 04/30/18 [Centrum Women Tablet] Ondansetron [Zuplenz] 4 mg PO Q6H PRN 09/11/17 04/30/18 Saccharomyces Boulardii [Florastor] 250 mg PO BID MDD for 12 weeks 10/28/17 04/30/18 Acetaminophen 1,000 mg PO TID 01/11/18 04/30/18 Hydrocodone/Acetaminophen 1 tab PO .0700, 1400 02/16/18 04/30/18 [Hydrocodone-Acetamin 5-325 mg] Quetiapine Fumarate 25 mg PO .0800 04/30/18 04/30/18 - Allergies Allergies/Adverse Reactions: Allergies Allergy/AdvReac Type Severity Reaction Status Date / Time ketamine AdvReac Unknown Verified 10/26/14 16:44 Review of Systems - Constitutional Constitutional: reports: Weight gain (145 lbs 03/27/18. It was 135 lbs in Feb. Previous baseline was 165 lbs.) - Ears, Nose & Throat Ears, Nose & Throat: reports: Hearing loss - Cardiovascular Cardiovascular: denies: Exertional dyspnea, Decr. exercise tolerance - Respiratory Respiratory: denies: Cough - Gastrointestinal Gastrointestinal: reports: Constipation. denies: Change in bowel habits - Genitourinary Genitourinary: reports: Incontinence - Musculoskeletal Musculoskeletal: reports: Stiffness, Joint pain (R knee from rheumatoid arthritis), Assistive devices (wheelchair), Transfer issues (yanni) - Neurological Neurological: reports: Memory problems - Psychiatric Psychiatric: reports: Anxiety (occasional) - Endocrine Endocrine: reports: Hypothyroidism - Other Findings Other Findings: Limited ROS Physical Exam - Vital Signs Temperature: 96.6 F Pulse Rate: 75 O2 Saturation: 96 (room air) Blood Pressure: 128/83 (wrist cuff) - Physical Exam General Appearance: positive: No acute distress, Alert Eyes Bilateral: positive: EOMI, No lid inflammation, Conjunctivae nml, No scleral icterus ENT: positive: No signs of dehydration Neck: positive: Nml inspection, Trachea midline Cardiovascular: positive: Regular rate & rhythm, No murmur, No gallop Respiratory: positive: Chest non-tender, No respiratory distress, Breath sounds nml Abdomen: positive: Non-tender, Soft, Nml bowel sounds Skin: positive: Pallor, Other (Lesion on L back 2.5 x 1 cm, irregular, likely seborrheic keratosis) Extremities: positive: No pedal edema Neurologic/Psychiatric: positive: Mood/affect nml, Disoriented to place, Disoriented to time Palliative Care - POLST Patient has POLST: Yes POLST Status: DNR, Selective Treatment Pain: Pain improved (Humira injections 2x/month), Location (R knee) Tiredness/Fatigue: Mild (1-3) Drowsiness/Sedation: Mild (1-3) Nausea: None Depression: None Anxiety: Mild (1-3) Dyspnea: Mild (1-3) Anorexia: None Constipation: Intermittent constipation Feelings of wellbeing/Perceived Quality of Life: Good ("Life is not bad, it depends on how we handle it.") Performance Status: Wheelchair bound. Was formerly bedbound for several months. Awake and alert. Cooperative. Impression and Recommendations - Palliative Care Impression: 83-year-old woman with advanced Alzheimer's, has rebounded after a period of decline starting in August 2017 for several months. An extended regimen of antibiotics for C diff colitis seems to have resolved the colitis. She is no longer bedbound, and since decreasing quetiapine dosing slightly, she is less sedated in the mornings. She is getting twice-monthly Humira shots and reports her R knee pain has improved. Palliative care will continue to provide oversight and supportive care, with transition to hospice when appropriate. Recommendations/Counseling Done: RA, R knee pain: Improved with administration of Humira injections 2x/month by visiting nurse. Patient is no longer bedbound, gets up in her wheelchair and in the common room daily. Also [place] 5/325 07:00 and 14:00, and Tylenol 1000mg PO BID routine. Not to exceed 3000mg acetaminophen from all sources. Also diclofenac ointment up to 4x/day as needed. C diff colitis: Resolved. An extended vancomycin regimen was completed 02/17/18 Dementia with behavioral disturbances: Continue namenda. Seroquel was decreased due to drowsiness in mornings: now 25mg 08:00, plus 50mg at 14:00 and 20:00. Alprazolam BID as needed. Flu shot: Administered 9:37am. Monitored for 33 more minutes for any reactions. No reactions. Constipation: Senna 8.6mg tablet. Son wants to start giving her potato starch to "adjust gut elin." Advanced care planning: Goals are unchanged: Quality of life and pain control of RA. Son is supportive of hospice care when patient meets criteria. Time Spent: 45 minutes were spent with more than 50% of the time spent on counseling, education, and coordination of care regarding pain, flu shot, constipation treatments.
== END 2018-04-30 13:14 | disposition home or self-care (01) ==
LOC: PC 13:13
PROVIDERS: ATTEND Nurse Practitioner
DX: Z51.5 Encounter for palliative care (principal); M06.9 Rheumatoid arthritis, unspecified; G30.9 Alzheimer's disease, unspecified; F02.81 Dementia in other diseases classified elsewhere, unspecified severity, with behavioral disturbance; I10 Essential (primary) hypertension; K59.00 Constipation, unspecified; Z86.19 Personal history of other infectious and parasitic diseases; Z87.09 Personal history of other diseases of the respiratory system; Z79.899 Other long term (current) drug therapy; Z66 Do not resuscitate; Z99.3 Dependence on wheelchair; Z79.891 Long term (current) use of opiate analgesic; Z23 Encounter for immunization

== ENCOUNTER 2018-07-06 14:00 | Outpatient (CLI) | payer MEDICARE, OTHER, MEDICAID ==
--- NOTE | 2018-07-06 19:18 | CONSULTATION NOTE ---
Palliative Care Follow Up - Referral Referring Provider: Dr Gutiérrez. Dr Jack - web development director Time of Visit: 07/06/2018. 14:00 - 14:30 Referral setting: Adult Family Home (Seen in home setting due to taxing and considerable effort required to leave the home secondary to advanced dementia, RA pain, and confinement to wheelchair.) Referral Reason: R knee pain, rheumatoid arthritis - Information Sources Records reviewed: Previous records reviewed History/Review of Systems obtained from: Patient, Family, Caregiver Exam limitations: Clinical condition (dementia, short-term memory deficits) - History of Present Illness Update Brief HPI Update: 83-year-old woman with advanced dementia and rheumatoid arthritis with recently increased pain and elevated BP. -Medical history: Advanced dementia, RA, h/o C diff 2018, anxiety, paranoia behavior, intermittent hallucinations with a history of recurrent UTIs, [place] with stent placement in 2014, history of breast cancer with a lumpectomy and lymph nodes of her left arm removed, thyroid disease, hypothyroidism, tinnitus, hypertension, hyperlipidemia. Patient continues to have increased and uncontrolled pain in R knee secondary to rheumatoid arthritis. Patient's pain increased when sh had to stop the Xeljanz/tofacitinib, due to Vancomycin regimen for several months due to C diff infection. After the vancomycin completed, Humira injections were started instead of Xeljanz, due to insurance requirements. Unfortunately, the RA pain in R knee (but also shoulders and L hand, 4th and 5th fingers). R knee is swollen, tender and warm to the touch. She has no complaints of R knee pain when sedentary, and doesn't remember being in pain. However, any movement involving the R knee is painful, particularly using the Florian to transfer her from bed. Yesterday she was out of bed about 8 hours, and usually she is only up for 4-5 hours at a time. This extended period seemed to wear her out, and today she didn't tolerate being transferred out of bed, so she is remaining in bed today. Her pruritus (back, belly, groin) has increased. [facility] class 1 owner operator suspects it's Humira, since the itching increased once she was back on it. She has increased anxiety, more episodes of restlessness and agitation, possibly related to uncontrolled pain, and the [facility] reports some increased BP readings, which could also be linked to that. She is losing weight again due to poor appetite, which may also be related to her uncontrolled pain. Social History - Living Situation Living arrangement: Adult family home ([place] [facility]) Living Situation: With caregiver(s) Support System: Son Mundo lives nearby with his family. He visits regularly and is closely involved in her care. Medications/Allergies - Medications Home Medications: Ambulatory Orders Medication Instructions Recorded Confirmed Folic Acid 1 mg PO DAILY 10/26/14 07/06/18 Levothyroxine [Synthroid] 150 mcg PO QDAC 10/26/14 07/06/18 Simvastatin 10 mg PO QPM 10/26/14 07/06/18 Acetaminophen [Pain Relief] 1,000 mg ORAL BID 01/18/15 07/06/18 Aspirin [Low Dose Aspirin EC] 81 mg PO DAILY 04/12/15 07/06/18 Memantine HCl [Namenda] 5 mg PO DAILY 04/12/15 07/06/18 Metoprolol Tartrate 25 mg PO BID 04/12/15 07/06/18 ALPRAZolam [Xanax] 0.5 mg PO BID PRN 08/16/15 05/21/18 Diclofenac Sodium [Voltaren] 4 gm PO QID PRN 03/03/17 05/21/18 HYDROcod/ACETAM 5/325 [[place] 5/325] 0.5 - 1 tab PO Q4H PRN 03/03/17 05/21/18 Senna [Senokot] 8.6 mg PO DAILY 03/03/17 07/06/18 Loperamide HCl [Loperamide] 2 mg PO PRN PRN MDD 16 mg 09/03/17 07/06/18 QUEtiapine [SEROquel] 50 mg PO .1400.199909/03/17 07/06/18 guaiFENesin [Child Mucinex Chest 10 ml PO Q4H PRN 09/03/17 05/21/18 Congestion] Multivitamin/Iron/Folic Acid 1 tab PO DAILY 09/11/17 07/06/18 [Centrum Women Tablet] Ondansetron [Zuplenz] 4 mg PO Q6H PRN 09/11/17 07/06/18 Saccharomyces Boulardii [Florastor] 250 mg PO BID MDD for 12 weeks 10/28/17 07/06/18 Hydrocodone/Acetaminophen 1 tab PO .0700, 1400 02/16/18 07/06/18 [Hydrocodone-Acetamin 5-325 mg] Quetiapine Fumarate 25 mg PO .0800 04/30/18 07/06/18 Humira Injection 1 ea .TWICE MONTHLY 05/21/18 07/06/18 - Allergies Allergies/Adverse Reactions: Allergies Allergy/AdvReac Type Severity Reaction Status Date / Time ketamine AdvReac Unknown Verified 10/26/14 16:44 Review of Systems - Constitutional Constitutional: reports: Weakness, Weight loss (138 lbs 06/22/18. 146 lbs 05/08/18. 145 lbs in Mar. Previously she was in the 160s.) - Musculoskeletal Musculoskeletal: reports: Joint pain (R knee,and L hand especially 4th and 5th fingers, unable to straighten them out. Also bilateral shoulders), Assistive devices (wheelchair or bed bound), Transfer issues (Florian lift) - Integumentary Integumentary: reports: Pruritis (back, groing, abdomen) - Neurological Neurological: reports: General weakness, Memory problems - Psychiatric Psychiatric: reports: Anxiety, Aggitation - Endocrine Endocrine: reports: Hypothyroidism Physical Exam - Vital Signs Temperature: 96.8 F Pulse Rate: 77 O2 Saturation: 98 (room air) Blood Pressure: 110/55 - Physical Exam General Appearance: positive: No acute distress, Alert Eyes Bilateral: positive: Normal inspection ENT: positive: No signs of dehydration Neck: positive: Trachea midline Cardiovascular: positive: Regular rate & rhythm, No murmur Respiratory: positive: Chest non-tender, No respiratory distress, Diminished in bases. negative: Wheezes, Rales Skin: positive: No symptoms Extremities: positive: No pedal edema, Other (L great toe with significant fungal infection) Neurologic/Psychiatric: positive: Mood/affect nml, Disoriented to place, Disoriented to time Palliative Care - POLST Patient has POLST: Yes POLST Status: DNR, Selective Treatment Pain: Location (Mostly R knee; also shoulders and L hand/fingers) Anxiety: Mild (1-3) Anorexia: Mild (1-3) Constipation: No Performance Status: bedbound or wheelchair bound requires Florian for transfers incontinent of bowel and bladder requires extensive assistance with all ADLs - Palliative Care Discussion: Uncontrolled rheumatoid arthritis pain is the main concern for patient and her family. Her RA pain, particularly the troublesome R knee, had been controlled on Xeljanz previously. Unfortunately, when she went back onto RA meds after her extended antibiotic regimen, insurance required her to use Humira. Her son is taking her to Dr Jack on 07/14/18 for evaluation and hopefully starting her back on Xeljanz. Patient will likely not get pain under control unless specialized medications are available. Humira injections, with routine Tylenol and routine [place] have proven insufficient. Impression and Recommendations - Palliative Care Impression: 83-year-old woman with advanced dementia and rheumatoid arthritis with uncontrolled RA pain, mainly in R knee, despite Humira injections and routine Tylenol and [place]. She continues to have elevatedfBP per the [facility] class 1 owner operator, a known side effect of Humira. She could benefit from going back to using Xeljanz, which has previously controlled her RA pain. Palliative Care will continue to provide support and monitoring. Recommendations/Counseling Done: Rheumatoid arthritis, chronic R knee pain: Patient continues to have R knee pain with any movement or transferring. When she is sedentary and still, she doesn't recall her pain and denies it. She also has RA pain in hands (particularly L) and shoulder. No pain relief of R knee despite routine Humira, [place], Tylenol. Also diclofenac ointment up to 4x/day as needed. Checked [employer] [place]; there is no concerning opioid prescribing activity. HTN: BP normal today, 110/55, but [facility] class 1 owner operator reports some increased readings, possibly a side effect of Humira. Metoprolol was increased the end of April; continue 25mg BID and monitor. Dementia with behavioral disturbances: Stable. Continue Namenda and Seroquel 25mg in a.m., 50mg in afternoon and evening, plus alprazolam BID as needed, rarely used. Constipation: Senna 8.6mg tablet as needed. Advance care planning: POLST DNR and selective interventions. Goal is quality of life and pain control of RA. Her son is taking her to Dr Jack on 07/14/18 for evaluation and hopefully restarting her on Xeljanz. Palliative Care recommends that insurance authorize this medication Son wants scripts to go through [facility] (per patient's insurance), not [facility]. Time Spent: 30 minutes were spent with more than 50% of the time spent on counseling, education, and coordination of care.
== END 2018-07-06 14:01 | disposition home or self-care (01) ==
LOC: PC 14:00
PROVIDERS: ATTEND Nurse Practitioner
DX: Z51.5 Encounter for palliative care (principal); G30.9 Alzheimer's disease, unspecified; F02.81 Dementia in other diseases classified elsewhere, unspecified severity, with behavioral disturbance; M06.9 Rheumatoid arthritis, unspecified; K59.00 Constipation, unspecified; R15.9 Full incontinence of feces; R32 Unspecified urinary incontinence; I10 Essential (primary) hypertension; Z99.3 Dependence on wheelchair; Z66 Do not resuscitate; Z79.899 Other long term (current) drug therapy; Z79.82 Long term (current) use of aspirin; Z79.891 Long term (current) use of opiate analgesic

== ENCOUNTER 2018-07-14 08:00 | Outpatient (CLI) | payer MEDICARE, OTHER, MEDICAID ==
[2018-07-14 19:13] LABS: BASOPHILS % (AUTO) 0.5 %; EOSINOPHILS # (AUTO) 0.2 10^3/uL (0.0-0.7); EOSINOPHILS % (AUTO) 2.5 %; HGB - HEMOGLOBIN 12.1 g/dL (12.0-16.0); LYMPHOCYTES # (AUTO) 2.1 10^3/uL (1.5-3.5); LYMPHOCYTES % (AUTO) 24.1 %; MEAN CORPUSCULAR HEMOGLOBIN 30.2 pg (27.0-31.0); MEAN CORPUSCULAR HGB CONC 32.8 g/dL (32.0-36.0); MEAN CORPUSCULAR VOLUME 92.1 fL (81.0-99.0); MONOCYTES # (AUTO) 0.6 10^3/uL (0.0-1.0); MONOCYTES % (AUTO) 6.4 %; NEUTROPHILS # (AUTO) 5.7 10^3/uL (1.5-6.6); NEUTROPHILS % (AUTO) 66.5 %; PLT - PLATELET COUNT 396 10^3/uL (130-450); RED BLOOD COUNT 3.99 10^6/uL (4.20-5.40); RED CELL DISTRIBUTION WIDTH 15.2 % (12.0-15.0); WHITE BLOOD COUNT 8.6 x10^3/uL (4.8-10.8)
[2018-07-14 19:31] LABS: ALBUMIN 3.2 g/dL (3.2-5.5); ALBUMIN/GLOBULIN RATIO 0.7 (1.0-2.2); BILIRUBIN,TOTAL 0.8 mg/dL (0.2-1.0); CALCIUM 9.1 mg/dL (8.5-10.3); CREATININE 0.8 mg/dL (0.4-1.0); TOTAL PROTEIN 7.7 g/dL (6.7-8.2)
== END 2018-07-14 23:59 | disposition home or self-care (01) ==
LOC: LAB.WCP 08:00
PROVIDERS: ATTEND Internal Medicine Rheumatology
DX: M05.79 Rheumatoid arthritis with rheumatoid factor of multiple sites without organ or systems involvement (principal)
CPT/HCPCS: 36415; 80053; 85025; 85651

== ENCOUNTER 2018-09-08 13:40 | Outpatient (CLI) | payer MEDICARE, OTHER, MEDICAID ==
[2018-09-08 19:18] LABS: BASOPHILS % (AUTO) 0.5 %; EOSINOPHILS # (AUTO) 0.2 10^3/uL (0.0-0.7); EOSINOPHILS % (AUTO) 2.9 %; HGB - HEMOGLOBIN 12.6 g/dL (12.0-16.0); LYMPHOCYTES # (AUTO) 1.7 10^3/uL (1.5-3.5); LYMPHOCYTES % (AUTO) 19.8 %; MEAN CORPUSCULAR HEMOGLOBIN 30.2 pg (27.0-31.0); MEAN CORPUSCULAR HGB CONC 32.8 g/dL (32.0-36.0); MEAN CORPUSCULAR VOLUME 91.8 fL (81.0-99.0); MEAN PLATELET VOLUME 9.5 fL (7.9-10.8); MONOCYTES # (AUTO) 0.6 10^3/uL (0.0-1.0); MONOCYTES % (AUTO) 6.8 %; PLT - PLATELET COUNT 389 10^3/uL (130-450); RED BLOOD COUNT 4.18 10^6/uL (4.20-5.40); WHITE BLOOD COUNT 8.6 x10^3/uL (4.8-10.8)
[2018-09-08 19:42] LABS: ALBUMIN 3.4 g/dL (3.2-5.5); ALBUMIN/GLOBULIN RATIO 0.9 (1.0-2.2); ALKALINE PHOSPHATASE 80 IU/L (42-121); ALT ALANINE AMINOTRANSFERASE 19 IU/L (10-60); AST ASPARTATE AMINOTRANSFERASE 26 IU/L (10-42); BILIRUBIN,TOTAL 0.5 mg/dL (0.2-1.0); BUN - BLOOD UREA NITROGEN 24 mg/dL (6-20); CALCIUM 9.3 mg/dL (8.5-10.3); CARBON DIOXIDE - CO2 25 mmol/L (21-32); CHLORIDE 107 mmol/L (101-111); CHOL/HDL RATIO 3.6 (<4.4); CHOLESTEROL 142 mg/dL; CREATININE 0.7 mg/dL (0.4-1.0); GFR - MDRD 80 (>89); GLUCOSE 125 mg/dL (70-100); HDL CHOLESTEROL 39 mg/dL; LDL CHOLESTEROL,CALCULATED 44 mg/dL; LDL/HDL RATIO 1.1 (<4.4); SODIUM 142 mmol/L (135-145); TOTAL PROTEIN 7.4 g/dL (6.7-8.2); VLDL CHOLESTEROL 59 mg/dL
== END 2018-09-08 13:41 | disposition home or self-care (01) ==
LOC: LAB.WCP 13:40
PROVIDERS: ATTEND Internal Medicine Rheumatology
DX: M05.79 Rheumatoid arthritis with rheumatoid factor of multiple sites without organ or systems involvement (principal)
CPT/HCPCS: 36415; 80053; 80061; 83721; 85025; 85651

== ENCOUNTER 2018-09-17 20:39 | Outpatient (CLI) | payer SELFPAY | END 2018-09-17 20:40 | disposition EMS.NT | LOC: EMS 20:39 | PROVIDERS: ATTEND Surgery | DX: Z03.89 Encounter for observation for other suspected diseases and conditions ruled out (principal) ==

== ENCOUNTER 2018-10-12 12:50 | Outpatient (CLI) | payer MEDICARE, OTHER, MEDICAID ==
--- NOTE | 2018-10-12 18:20 | CONSULTATION NOTE ---
Palliative Care Follow Up - Referral Referring Provider: Dr Gutiérrez Time of Visit: Valentin 10/12/2018. 12:50 - 13:40 Referral setting: Adult [facility] ([facility]) Referral Reason: R knee pain - Information Sources Records reviewed: Previous records reviewed History/Review of Systems obtained from: Patient, Family, Caregiver Exam limitations: Clinical condition (Advanced dementia; poor historian) - History of Present Illness Update Brief HPI Update: 83-year-old woman with advanced dementia and rheumatoid arthritis with recently increased pain and elevated BP. -Medical history: Advanced dementia, RA, h/o C diff 2017, anxiety, paranoia behavior, intermittent hallucinations with a history of recurrent UTIs, [place] with stent placement in 2014, history of breast cancer with a lumpectomy and lymph nodes of her left arm removed, thyroid disease, hypothyroidism, tinnitus, hypertension, hyperlipidemia. Patient has been switched from Humira injections to Xeljanz for RA pain, particularly R knee Son, Mundo, notes an improvement in her pain levels on Xeljanz Caregiver Cornelius notes less need for pain meds, so Cary was recently switched from 1/2 tab BID routine to BID PRN. In addition, pt is likely sensitive to it; caregiver notes improvement in her pruritis when she's not taking Cary. Pt is ambulatory by wheelchair, but is restless, constantly moving around within the house. She does so continually during this visit; caregiver reports she does so at mealtimes. She is unable to remain still. However, Pt is rarely administered PRN 0.5 mg alprazolam for anxiety: 2x so far in September 4x in August, 3x in July. Patient recognizes this PHYSICIAN EXTENDER, she is pleasant, smiling, pleasantly confused, significant cognitive decline and short-term memory deficit. She requires consistent cueing and is able to follow simple directions. She is very cooperative. Patient denies pain, even if she is in pain. She gives no sign of pain when R knee is palpated. She is unable to straighten the R knee; it remains at 135 degree angle while she is in wheelchair. Caregiver reports sometimes while in bed she can slowly straighten her right knee, but most of time she needs a pillow under it. Suggested to caregiver that if they have enough personnel that a caregiver could take her on a walk outside to get her out of the 4 bryan, which might ameliorate her constant restlessness and "wheeling about" the house. Caregiver will try to arrange something. She confirmed that the patient is not impulsive as far as trying to get out of her chair. She is impulsive in constantly wheeling it around the house. Son Mundo was supportive of walking her in the neighborhood as long as she is adequately escorted. During the months during and after her C diff infection she was experiencing more frequent, and loose stools, but now Pt has gone back to her pattern of one large bowel movement about every three days; which had been her baseline for years. Pt will need blood draws about every two months to monitor liver function while she is on Xeljanz. There is a caregiver in the [facility] who can draw blood. Mundo agreed to arrange it with [facility] remote sensing advisor to coordinate the supplies and timing. Caregiver reports patient needs new wheelchair; she is using a loaned one with broken breaks. Left her a message afterward explaining Medicare reimbursement (very little), and the process takes 30-60 days, so direct purchase or rental through a DME supplier (eg, [employer]), or a pharmacy, is recommended. Or contacting a charitable organization such as [employer] for a donated wheelchair. Social History - Living Situation Living arrangement: Adult family home ([facility]) Living Situation: With caregiver(s) Support System: Son Mundo lives nearby with his family. He visits regularly and is closely involved in her care. Medications/Allergies - Medications Home Medications: Ambulatory Orders Medication Instructions Recorded Confirmed Folic Acid 1 mg PO DAILY 10/26/14 10/12/18 Levothyroxine [Synthroid] 150 mcg PO QDAC 10/26/14 10/12/18 Simvastatin 10 mg PO QPM 10/26/14 10/12/18 Acetaminophen [Pain Relief] 1,000 mg ORAL BID 01/18/15 10/12/18 Aspirin [Low Dose Aspirin EC] 81 mg PO DAILY 04/12/15 10/12/18 Memantine HCl [Namenda] 5 mg PO DAILY 04/12/15 10/12/18 Metoprolol Tartrate 25 mg PO BID 04/12/15 10/12/18 ALPRAZolam [Xanax] 0.5 mg PO BID PRN 08/16/15 10/12/18 Diclofenac Sodium [Voltaren] 4 gm PO QID PRN 03/03/17 10/12/18 Senna [Senokot] 8.6 mg PO DAILY PRN 03/03/17 10/12/18 Loperamide HCl [Loperamide] 2 mg PO PRN PRN MDD 16 mg 09/03/17 10/12/18 QUEtiapine [SEROquel] 50 mg PO .1400.199909/03/17 10/12/18 guaiFENesin [Child Mucinex Chest 10 ml PO Q4H PRN 09/03/17 10/12/18 Congestion] Multivitamin/Iron/Folic Acid 1 tab PO DAILY 09/11/17 10/12/18 [Centrum Women Tablet] Ondansetron [Zuplenz] 4 mg PO Q6H PRN 09/11/17 10/12/18 Saccharomyces Boulardii [Florastor] 250 mg PO BID MDD for 12 weeks 10/28/17 10/12/18 Hydrocodone/Acetaminophen 0.5 tab PO BID 02/16/18 10/12/18 [Hydrocodone-Acetamin 5-325 mg] Quetiapine Fumarate 25 mg PO .0800 04/30/18 10/12/18 Acetaminophen 1,000 mg PO TID PRN MDD NTE 3000mg 10/12/18 10/12/18 from all sources Tofacitinib Citrate [Xeljanz Xr] 11 mg PO DAILY 10/12/18 10/12/18 - Allergies Allergies/Adverse Reactions: Allergies Allergy/AdvReac Type Severity Reaction Status Date / Time ketamine AdvReac Unknown Verified 10/26/14 16:44 Review of Systems - Constitutional Constitutional: reports: Weight loss (135 lbs 10/09/18. 138 lbs 06/22/18. 146 lbs 05/08/18. 145 lbs 03/2018. Previously 160s.). denies: Poor appetite - Ears, Nose & Throat Ears, Nose & Throat: reports: Hearing loss (mild) - Cardiovascular Cardiovascular: denies: Decr. exercise tolerance - Respiratory Respiratory: reports: Cough (lingering, episodic, from previous URI that was going around the [facility]). denies: SOB at rest, SOB with exertion - Gastrointestinal Gastrointestinal: reports: Constipation (BMs about every 3 days; her baseline f or years.) - Musculoskeletal Musculoskeletal: reports: Limited range of motion (R knee contracted at 135 degree), Joint pain (Rheumatoid arthritis: R knee; L hand 4th and 5th fingers; bilateral shoulders), Assistive devices (wheelchair), Transfer issues (Florian lift) - Neurological Neurological: reports: General weakness, Memory problems - Psychiatric Psychiatric: reports: Anxiety (improved), Other (when she is in her wheelchair, she is constantly propelling herself around the house) - Endocrine Endocrine: reports: Hypothyroidism - Other Findings Other Findings: Limited ROS. Physical Exam - Vital Signs Temperature: 96.3 F Pulse Rate: 74 O2 Saturation: 95 Blood Pressure: 104/71 - Physical Exam General Appearance: positive: No acute distress, Alert Eyes Bilateral: positive: Normal inspection ENT: positive: No signs of dehydration Neck: positive: Trachea midline Cardiovascular: positive: Regular rate & rhythm, No murmur Respiratory: positive: Chest non-tender, No respiratory distress Abdomen: positive: Non-tender, Soft, Nml bowel sounds Skin: positive: No symptoms Extremities: positive: No pedal edema. negative: Full ROM (contracted R knee 135 degree. Avoids using the R leg while self-propelling in w/c) Neurologic/Psychiatric: positive: Mood/affect nml, Disoriented to person, Disoriented to place, Disoriented to time. negative: Unintelligible speech Palliative Care - POLST Patient has POLST: Yes POLST Status: DNR, Selective Treatment Pain: Comment (improved now that she is on Xeljanz. Decreased use of Cary due to reaction; it's now PRN. Continue routine Tylenol) Tiredness/Fatigue: Moderate (4-6) Drowsiness/Sedation: None Anxiety: Mild (1-3) (episodic) Anorexia: Weight loss (135 lbs currently. Former baseine was in 160s) Constipation: Managed (Senna), Comment (regular pattern is one large bowel movement about every 3 days) Performance Status: Ambulatory with wheelchair, otherwise stays in bed much of time Florian lift for transfers Incontinent bowel and bladder extensive assistance with all ADLs - Palliative Care Discussion: Pain control has been son's previous concern. He notes improvement now that she is back on Xeljanz. He will arrange with [facility] to have her blood drawn every other month for the required monitoring related to using Xeljanz. Impression and Recommendations - Palliative Care Impression: 83-year-old woman with advanced dementia and rheumatoid arthritis, pain improved now that she is back on Xeljanz. Her anxiety is controlled well on quetiapine; she uses very little of the PRN medication (alprazolam) Palliative Care will continue to provide support and monitoring for appropriate transition to Hospice when indicated. Recommendations/Counseling Done: Rheumatoid arthritis, chronic R knee pain: Improved with Xeljanz ER 11mg daily. Patient's R knee non-tender upon palpation; but she doesn't straighten it; it's mostly at 135 degree angle. She uses routine Tylenol, and has PRN Tylenol and Cary (NTE 3000mg/24hrs) Also has diclofenac ointment up to 4x/day as needed; caregiver doesn't notice any improvement. Checked [employer] [place]; there is no concerning opioid prescribing activity. HTN: BP normal today, 104/71, HR 74. BP improved since stopping Humira. Metoprolol 25mg BID. Monitor. Dementia with behavioral disturbances: Stable on Namenda and Seroquel 25mg in a.m., 50mg in afternoon and evening. Alprazolam is BID as needed, infrequently used: twice in September, 4x in August; 3x in July. Constipation: Senna 8.6mg tablet as needed. Advance care planning: POLST DNR and selective interventions. RA pain has improved with Xeljanz. Her son is supportive of [facility] caregiver staff taking her out on walks in the neighborhood as long as caregivers are responsible and careful. Patient is using a borrowed wheelchair without functioning wheel lock. Relayed message to [facility] remote sensing advisor that Medicare reimburses very little (left her a voicemail with pricing), it's better to purchase outright from a [employer], or [id number], or contact [employer] or other charitable organizations that distribute used wheelchairs. Son requests scripts go through [facility] (per patient's insurance), not [facility]. Follow up every 6-8 weeks and as needed. Time Spent: 50 minutes were spent with more than 50% of the time spent on counseling, education, and coordination of care with [facility] staff and family.
== END 2018-10-12 12:51 | disposition home or self-care (01) ==
LOC: PC 12:50
PROVIDERS: ATTEND Nurse Practitioner
DX: Z51.5 Encounter for palliative care (principal); G89.29 Other chronic pain; M06.9 Rheumatoid arthritis, unspecified; I10 Essential (primary) hypertension; G30.9 Alzheimer's disease, unspecified; F02.81 Dementia in other diseases classified elsewhere, unspecified severity, with behavioral disturbance; K59.00 Constipation, unspecified; F41.9 Anxiety disorder, unspecified; Z79.899 Other long term (current) drug therapy; Z79.891 Long term (current) use of opiate analgesic; Z99.3 Dependence on wheelchair; Z86.19 Personal history of other infectious and parasitic diseases; Z66 Do not resuscitate

== ENCOUNTER 2018-11-30 08:00 | Outpatient (CLI) | payer MEDICARE, OTHER, MEDICAID | END 2018-11-30 23:59 | disposition home or self-care (01) | LOC: LAB.R 08:00 | PROVIDERS: ATTEND Nurse Practitioner | DX: N39.0 Urinary tract infection, site not specified (principal) | CPT/HCPCS: 87086 ==

== ENCOUNTER 2018-11-30 13:50 | Outpatient (CLI) | payer MEDICARE, OTHER, MEDICAID ==
--- NOTE | 2018-11-30 18:09 | CONSULTATION NOTE ---
Palliative Care Follow Up - Referral Referring Provider: Dr Gutiérrez Time of Visit: Edgar 11/30/2018. 13:50 - 14:30 Referral setting: Adult Family Home ([facility]) Referral Reason: Increased behaviors - Information Sources Records reviewed: RN notes reviewed History/Review of Systems obtained from: Patient, Family, Caregiver Exam limitations: Clinical condition (Advanced dementia) - History of Present Illness Update Brief HPI Update: 83-year-old woman with advanced dementia and rheumatoid arthritis with recently increased pain and elevated BP. Medical history: Advanced dementia, RA, h/o C diff 2018, anxiety, paranoia behavior, intermittent hallucinations with a history of recurrent UTIs, [place] with stent placement in 2014, history of breast cancer with a lumpectomy and lymph nodes of her left arm removed, thyroid disease, hypothyroidism, tinnitus, hypertension, hyperlipidemia. Last week adult family home chief design engineer reported patient having onset and escalation of behaviors that are consistent with previous episodes of her having UTI: agitation, acting out with other people in the [facility], resisting taking medications, attempts to transfer herself from wheelchair (not something she has tried to do for years). A 7-day regimen of empiric ciprofloxacin 500mg BID was initiated 11/18/18, along with probiotics. The patient has a history of C diff colitis from 2018. Xeljanz was stopped during the period the antibiotics were being given, and restarted afterwards. She has follow up appointment with Dr Jack, doll wigs hackler in [address] [facility] chief design engineer reports that patient improved somewhat with the antibiotic regimen but remains "off," with increased agitation and behaviors noted above. So urine sample was obtained today for culture. Patient was administered alprazolam beforehand due to increased agitation. She was cooperative during the straight catheterization. Patient is afebrile and makes eye contact. She is less verbal than her baseline, but smiles, is pleasant and cooperative. [facility] chief design engineer reports in general that patient's cognition and memory are decreasing and anxiety and agitation have increased. The patient is more focused inwardly and less focused on others around her. She will wheel herself in her wheelchair directly into others. Son, Reyes, notes that when he and his visited her recently, for the first time ever she didn't recognize them at all. Previously, she recognized him but mixed him up with her brother, for example. During today's assessment a non-tender firm oblong mass was noted on abdomen superficially, to the left and slightly inferior to the navel, approximately 5.5cm x 3.5cm. She has had this and possibly others seondary to receiving Humira injections to the abdomen over a period of months. Patient denies pain, tenderness, discomfort. Spoke on telephone with her son about this. He is aware of these fibrotic areas on the abdomen from the injections. Social History - Living Situation Living arrangement: Adult family home ([facility]) Living Situation: With caregiver(s) Support System: Son Mundo lives nearby with his family. He visits regularly and is closely involved in her care. Medications/Allergies - Medications Home Medications: Ambulatory Orders Medication Instructions Recorded Confirmed Folic Acid 1 mg PO DAILY 10/26/14 12/01/18 Levothyroxine [Synthroid] 150 mcg PO QDAC 10/26/14 12/01/18 Simvastatin 10 mg PO QPM 10/26/14 12/01/18 Acetaminophen [Pain Relief] 1,000 mg ORAL BID 01/18/15 12/01/18 Aspirin [Low Dose Aspirin EC] 81 mg PO DAILY 04/12/15 12/01/18 Memantine HCl [Namenda] 5 mg PO DAILY 04/12/15 12/01/18 Metoprolol Tartrate 25 mg PO BID 04/12/15 12/01/18 ALPRAZolam [Xanax] 1 tab PO BID PRN 08/16/15 12/01/18 Diclofenac Sodium [Voltaren] 4 gm PO QID PRN 03/03/17 12/01/18 Senna [Senokot] 8.6 mg PO DAILY PRN 03/03/17 12/01/18 Loperamide HCl [Loperamide] 2 mg PO PRN PRN MDD 16 mg 09/03/17 12/01/18 QUEtiapine [SEROquel] 50 mg PO .1400.199909/03/17 12/01/18 guaiFENesin [Child Mucinex Chest 10 ml PO Q4H PRN 09/03/17 12/01/18 Congestion] Multivitamin/Iron/Folic Acid 1 tab PO DAILY 09/11/17 12/01/18 [Centrum Women Tablet] Ondansetron [Zuplenz] 4 mg PO Q6H PRN 09/11/17 12/01/18 Saccharomyces Boulardii [Florastor] 250 mg PO BID MDD for 12 weeks 10/28/17 12/01/18 Hydrocodone/Acetaminophen 1 tab PO Q4H PRN 02/16/18 12/01/18 [Hydrocodone-Acetamin 5-325 mg] Quetiapine Fumarate 25 mg PO .0800 04/30/18 12/01/18 Acetaminophen 1,000 mg PO TID PRN MDD NTE 3000mg 10/12/18 12/01/18 from all sources Tofacitinib Citrate [Xeljanz Xr] 11 mg PO DAILY 10/12/18 10/12/18 - Allergies Allergies/Adverse Reactions: Allergies Allergy/AdvReac Type Severity Reaction Status Date / Time ketamine AdvReac Unknown Verified 10/26/14 16:44 Review of Systems - Constitutional Constitutional: reports: Weight loss (135 lbs 11/13/18 and 11/08/18. 138 lbs 06/22/18. 146 lbs 05/08/18. 145 lbs 03/2018. Previously 160s.). denies: Fever, Diaphoresis - Ears, Nose & Throat Ears, Nose & Throat: reports: Hearing loss (mild) - Cardiovascular Cardiovascular: denies: Edema, Exertional dyspnea, Decr. exercise tolerance - Respiratory Respiratory: denies: Cough, SOB at rest, SOB with exertion - Gastrointestinal Gastrointestinal: denies: Constipation - Genitourinary Genitourinary: reports: Incontinence - Musculoskeletal Musculoskeletal: reports: Limited range of motion, Joint pain (from RA), Assistive devices, Transfer issues - Neurological Neurological: reports: Memory problems - Psychiatric Psychiatric: reports: Anxiety (increased), Behavior disturbances (increased) - Endocrine Endocrine: reports: Hypothyroidism - Other Findings Other Findings: Limited ROS Physical Exam - Vital Signs Temperature: 96.4 F Pulse Rate: 82 Blood Pressure: 127/58 (wrist cuff) - Physical Exam General Appearance: positive: No acute distress, Alert Eyes Bilateral: positive: Normal inspection ENT: positive: No signs of dehydration Neck: positive: Trachea midline Cardiovascular: positive: Regular rate & rhythm, No murmur Respiratory: positive: Chest non-tender, No respiratory distress, Diminished throughout. negative: Wheezes, Rales, Rhonchi Abdomen: positive: Non-tender, Soft, Mass (non-tender, firm oblong mass approx 5.5x3.5cm left and slightly inferior to the navel from Humira injections to the abdomen over a period of months.) Skin: positive: No symptoms Extremities: positive: Nml appearance, No pedal edema Neurologic/Psychiatric: positive: Mood/affect nml, Disoriented to person, Disoriented to place, Disoriented to time Palliative Care - POLST Patient has POLST: Yes POLST Status: DNR, Selective Treatment Pain: Comment (continues on Xeljanz for RA pain) Drowsiness/Sedation: None Anxiety: Moderate (4-6), Comment (improved with alprazolam) Anorexia: Weight loss (weight stable at 135 lbs for 2 months, lower than it was previously) Sleep: Sleeps well Constipation: Comment (every 3 days is her baseline) Performance Status: wheelchair and bedbound; stays in bed majority of time yanni lift icotinencne bowel and bladder extensive assistance with all ADLs - Palliative Care Discussion: Pain control and quality of life are goals of care. POLST is DNR and selective, family is supportive of transfer to hospital for reversible conditions, but prefer avoiding that she leave the [facility], as it is a taxing and considerable effort to get her out, and it increases her agitation and behaviors. Impression and Recommendations - Palliative Care Impression: 83-year-old woman living at [facility] with advanced dementia and rheumatoid arthritis. She has had increased anxiety and decreased cognition and memory recently, suspected the altered condition may be related to UTI. She was treated last week with empiric ciprofloxacin, but issue has not resolved. Urine sample was obtained today by straight cath and culture ordered. Recommendations/Counseling Done: Escalated behaviors, mental status changes: Consistent with previous episodes of UTI. The patient is at increased risk for UTI due to immunosuppresant medication Xeljanz and her chronic coorbidities. Ran an empiric cycle of ciprofloxacin last week, which improved but did not resolve the behaviors and mental alteration. Obtained urine sample via straight cath for a culture and delivered to lab. Rheumatoid arthritis: Xeljanz was stopped for 7 days while the patient was on antibiotics last week. It was restarted after the antibiotic regimen was completed. Patient also uses routine Tylenol, [place] PRN, and diclofenac ointment PRN up to 4x daily. No concerning opioid activity on the [facility] [place] site. She has follow up appointment with Dr Marcie, doll wigs hackler in 2 weeks. HTN: Normal 127/58. Dementia with behavior disturbances: Increased agitation and decreased cognition recently, as noted above. Family notes she didn't recognize them at all, for the first time ever. Continue quetipine and Namenda, as alprazolam BID as needed. Advance care planning: Goals of care: control her pain and maintain quality of life. It's difficult and traumatic for her to be taken out of [facility] for appointments, but son takes her to doll wigs hackler for monitoring. He is also supportive of transfer to hospital for reversible condtions/stabilization of condition. Time Spent: 40 minutes were spent with more than 50% of the time spent on counseling, education, obtaining urine sample via straight cath, and coordination of care with [facility] staff and son of patient.
== END 2018-11-30 13:51 | disposition home or self-care (01) ==
LOC: PC 13:50
PROVIDERS: ATTEND Nurse Practitioner
DX: Z51.5 Encounter for palliative care (principal); G30.9 Alzheimer's disease, unspecified; F02.81 Dementia in other diseases classified elsewhere, unspecified severity, with behavioral disturbance; M06.9 Rheumatoid arthritis, unspecified; F41.9 Anxiety disorder, unspecified; F22 Delusional disorders; E03.9 Hypothyroidism, unspecified; H93.19 Tinnitus, unspecified ear; I10 Essential (primary) hypertension; E78.5 Hyperlipidemia, unspecified; H91.90 Unspecified hearing loss, unspecified ear; R32 Unspecified urinary incontinence; R15.9 Full incontinence of feces; Z66 Do not resuscitate; Z99.3 Dependence on wheelchair; Z87.440 Personal history of urinary (tract) infections; Z79.891 Long term (current) use of opiate analgesic; Z85.3 Personal history of malignant neoplasm of breast; I25.2 Old myocardial infarction; Z95.5 Presence of coronary angioplasty implant and graft

== ENCOUNTER 2018-12-15 08:00 | Outpatient (CLI) | payer MEDICARE, OTHER, MEDICAID ==
[2018-12-15 18:59] LABS: BASOPHILS # (AUTO) 0.1 10^3/uL (0.0-0.1); BASOPHILS % (AUTO) 0.5 %; EOSINOPHILS # (AUTO) 0.3 10^3/uL (0.0-0.7); EOSINOPHILS % (AUTO) 2.8 %; HGB - HEMOGLOBIN 12.6 g/dL (12.0-16.0); LYMPHOCYTES % (AUTO) 31.4 %; MEAN CORPUSCULAR HEMOGLOBIN 30.6 pg (27.0-31.0); MEAN CORPUSCULAR HGB CONC 31.1 g/dL (32.0-36.0); MEAN CORPUSCULAR VOLUME 98.3 fL (81.0-99.0); MEAN PLATELET VOLUME 11.3 fL (7.9-10.8); MONOCYTES # (AUTO) 0.5 10^3/uL (0.0-1.0); MONOCYTES % (AUTO) 5.6 %; NEUTROPHILS # (AUTO) 5.6 10^3/uL (1.5-6.6); NEUTROPHILS % (AUTO) 59.4 %; PLT - PLATELET COUNT 495 10^3/uL (130-450); RED BLOOD COUNT 4.12 10^6/uL (4.20-5.40); RED CELL DISTRIBUTION WIDTH 13.7 % (12.0-15.0); WHITE BLOOD COUNT 9.4 x10^3/uL (4.8-10.8)
[2018-12-15 19:28] LABS: ALBUMIN 3.7 g/dL (3.2-5.5); ALBUMIN/GLOBULIN RATIO 0.9 (1.0-2.2); BILIRUBIN,TOTAL 0.6 mg/dL (0.2-1.0); CALCIUM 9.5 mg/dL (8.5-10.3); CREATININE 0.8 mg/dL (0.4-1.0); TOTAL PROTEIN 7.9 g/dL (6.7-8.2)
== END 2018-12-15 08:01 | disposition home or self-care (01) ==
LOC: LAB.WCP 08:00
PROVIDERS: ATTEND Internal Medicine Rheumatology
DX: M05.79 Rheumatoid arthritis with rheumatoid factor of multiple sites without organ or systems involvement (principal)
CPT/HCPCS: 36415; 80053; 85025; 85651

== ENCOUNTER 2019-04-26 10:45 | Outpatient (CLI) | payer MEDICARE, OTHER, MEDICAID ==
[2019-04-27 11:54] LABS: BASOPHILS % (AUTO) 0.3 %; EOSINOPHILS # (AUTO) 0.2 10^3/uL (0.0-0.7); EOSINOPHILS % (AUTO) 2.3 %; HGB - HEMOGLOBIN 12.6 g/dL (12.0-16.0); LYMPHOCYTES # (AUTO) 2.9 10^3/uL (1.5-3.5); LYMPHOCYTES % (AUTO) 29.2 %; MEAN CORPUSCULAR HGB CONC 32.2 g/dL (32.0-36.0); MEAN CORPUSCULAR VOLUME 96.1 fL (81.0-99.0); MEAN PLATELET VOLUME 10.8 fL (7.9-10.8); MONOCYTES # (AUTO) 0.3 10^3/uL (0.0-1.0); MONOCYTES % (AUTO) 3.1 %; NEUTROPHILS # (AUTO) 6.4 10^3/uL (1.5-6.6); NEUTROPHILS % (AUTO) 64.7 %; PLT - PLATELET COUNT 372 10^3/uL (130-450); RED BLOOD COUNT 4.07 10^6/uL (4.20-5.40); RED CELL DISTRIBUTION WIDTH 14.3 % (12.0-15.0); WHITE BLOOD COUNT 9.9 x10^3/uL (4.8-10.8)
[2019-04-27 12:02] LABS: ALBUMIN 3.3 g/dL (3.2-5.5); ALBUMIN/GLOBULIN RATIO 0.9 (1.0-2.2); BILIRUBIN,TOTAL 0.5 mg/dL (0.2-1.0); CREATININE 0.9 mg/dL (0.4-1.0)
== END 2019-04-26 23:59 | disposition home or self-care (01) ==
LOC: LAB.R 10:45
PROVIDERS: ATTEND Nurse Practitioner Adult Health
DX: Z79.899 Other long term (current) drug therapy (principal); M06.9 Rheumatoid arthritis, unspecified
CPT/HCPCS: 80053; 85025; 85651

== ENCOUNTER 2019-04-27 10:15 | Outpatient (CLI) | payer MEDICARE, OTHER, MEDICAID ==
--- NOTE | 2019-04-27 16:25 | CONSULTATION NOTE ---
Palliative Care Follow Up - Referral Referring Provider: Dr. Ria Gutiérrez Time of Visit: [id number] Referral setting: Adult Family Home Referral Reason: RA/Dementia with behavioral disturbances - Information Sources Records reviewed: Previous records reviewed History/Review of Systems obtained from: Caregiver (Luci EVERETT cloth examiner machine/primary CG) Exam limitations: Clinical condition (patient with advanced dementia) - History of Present Illness Update Brief HPI Update: This is an 84-year-old woman with progressive dementia, and underlying rheumatoid arthritis currently on disease modifying treatment of the Xeljanz. She has had progressive functional decline, she is currently wheelchair-bound. They are no longer able to pivot transfer her, she is a Florian lift. She does have an effusion in her right knee and swelling, though no erythema. It is tender with manipulation and does present with contracture. She does have tenderness in her hands, limited range of motion with her shoulders overhead, she has been for pain management on acetaminophen 1000 mg twice daily. Her caregivers perceived that she still has uncontrolled pain, though she does not complain much. You can elicit a pain response fairly easily. They have used hydrocodone in the past, but does present challenges that she does get pruritus. They would like to try an alternative particularly when it escalates. Patient with dementia and behavioral disturbances. These are demonstrated by increasing anxiety, is demonstrated sundowning pattern. They do have alprazolam for as needed use, this is decreased fairly dramatically. They are starting a new program for individualized activities for patients with dementia, this is through the state and will pay for more one-on-one attention. She is alert, is able to answer yes/no questions but without any short-term memory recall. She is quite pleasant, makes good eye contact, easily laughs. Her responses are short phrases, occasionally spontaneous sharing's that are humerus in nature. She on quetiapine 25 mg a.m., 50 afternoon and evening, this does appear to be managing her behaviors as an acceptable level. She does not demonstrate any signs or symptoms of sedation. Patient has developed a moist cough, her lungs are clear, her O2 sats are without difficulty. It does appear mostly upper respiratory, and there has been viral illness in adult family home. Her cough is been well controlled with guaifenesin intermittently, patient demonstrates no signs or symptoms of dist ress or bacterial infection. The caregiver feels she is improving. She is due for a flu shot, will hold off though till next week. Instructed to call if worseing sympotoms given her frailty. Social History - Living Situation Living arrangement: Adult family home Support System: Patient has lived in an adult family home, originally came with her who has since passed on hospice last year. She is they are under [place] P[place]. 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 She is always been very involved in her life and quite busy. This is demonstrated in her day-to-day activity, she does like to engage and is quite social. Medications/Allergies - Medications Home Medications: Ambulatory Orders Medication Instructions Recorded Confirmed Folic Acid 1 mg PO DAILY 10/26/14 04/28/19 Levothyroxine [Synthroid] 150 mcg PO QDAC 10/26/14 04/28/19 Simvastatin 10 mg PO QPM 10/26/14 04/28/19 Acetaminophen [Pain Relief] 1,000 mg ORAL BID 01/18/15 04/28/19 Aspirin [Low Dose Aspirin EC] 81 mg PO DAILY 04/12/15 04/28/19 Memantine HCl [Namenda] 5 mg PO DAILY 04/12/15 04/28/19 Metoprolol Tartrate 25 mg PO BID 04/12/15 04/28/19 ALPRAZolam [Xanax] 1 tab PO BID PRN 08/16/15 04/28/19 Diclofenac Sodium [Voltaren] 4 gm PO QID PRN 03/03/17 04/28/19 Senna [Senokot] 8.6 mg PO DAILY PRN 03/03/17 04/28/19 Loperamide HCl [Loperamide] 2 mg PO PRN PRN MDD 16 mg 09/03/17 04/28/19 QUEtiapine [SEROquel] 50 mg PO .1400.199909/03/17 04/28/19 guaiFENesin [Child Mucinex Chest 10 ml PO Q4H PRN 09/03/17 04/28/19 Congestion] Multivitamin/Iron/Folic Acid 1 tab PO DAILY 09/11/17 04/28/19 [Centrum Women Tablet] Ondansetron [Zuplenz] 4 mg PO Q6H PRN 09/11/17 04/28/19 Saccharomyces Boulardii [Florastor] 250 mg PO BID 10/28/17 04/28/19 Hydrocodone/Acetaminophen 1 tab PO Q4H PRN 02/16/18 04/28/19 [Hydrocodone-Acetamin 5-325 mg] Quetiapine Fumarate 25 mg PO .0800 04/30/18 04/28/19 Acetaminophen 1,000 mg PO TID PRN MDD NTE 3000mg 10/12/18 04/28/19 from all sources Tofacitinib Citrate [Xeljanz Xr] 11 mg PO DAILY 10/12/18 04/28/19 traMADol [Ultram] 50 mg PO Q4HR PRN 04/28/19 04/28/19 - Allergies Allergies/Adverse Reactions: Allergies Allergy/AdvReac Type Severity Reaction Status Date / Time ketamine AdvReac Unknown Verified 10/26/14 16:44 Review of Systems - Constitutional Constitutional: reports: Fatigue, Weight loss (132 slow decline). denies: Fever, Chills - Eyes Eyes: reports: Vision loss - Ears, Nose & Throat Ears, Nose & Throat: reports: Dry mouth - Respiratory Respiratory: reports: Cough (moist cough for about a week; CG feels improving;viral illness in [facility]). denies: SOB at rest - Gastrointestinal Gastrointestinal: reports: Good appetite. denies: Constipation, Diarrhea - Genitourinary Genitourinary: reports: Incontinence - Musculoskeletal Musculoskeletal: reports: Stiffness, Transfer issues (using florian to get into wheelchair; w/c bound, up most of the day) - Neurological Neurological: reports: General weakness, Memory problems (cognitive decline continues; still verbal and engages in actively conversation; good sense of humor; unable to recall names/family/location) - Psychiatric Psychiatric: reports: Anxiety (does demonstrate self soothing behaviors of activity and often demonstrates anxiety or low level agitation; tends to "wheel self around" to keep busy) - Endocrine Endocrine: reports: Hypothyroidism - Hematologic/Lymphatic Hematologic/Lymphatic: reports: Recurrent infections (last treated for UTI 10/2018; of note patient with hx of Cdiff that was recurrent) - All Other Systems All Other Systems: reports: Other (limited ROS) Physical Exam - Vital Signs Temperature: 97.5 C Pulse Rate: 66 Respiratory Rate: 18 O2 Saturation: 97 (ra @ rest) Blood Pressure: 122/82 - Physical Exam General Appearance: positive: No acute distress, Alert Eyes Bilateral: positive: Normal inspection ENT: positive: No signs of dehydration. negative: Pharyngeal erythema Neck: positive: No JVD, Trachea midline Cardiovascular: positive: Regular rate & rhythm Respiratory: positive: No respiratory distress, Breath sounds nml, Other (most cough; no distress;). negative: Rhonchi Abdomen: positive: Non-tender, Soft, Nml bowel sounds, Mass (left mass in layer of fat/ non tender about walnut size; thought to be scar tissue of early injections; no increase in size and probable decrease) Skin: positive: Pallor, Dryness. negative: Pruritis (but have been problematic with hydrocodone use), Pressure wound Extremities: positive: No pedal edema, Joint swelling (hands with tenderness on exam; mild swelling but no erythema;), Other (right knee with swelling and tenderness on exam; no erythema; has developed contracture;). negative: Full ROM (shoulder ROM limited) Neurologic/Psychiatric: positive: Mood/affect nml, Disoriented to person, Disoriented to place, Disoriented to time, Weakness Palliative Care - POLST Patient has POLST: Yes POLST Status: DNR, Selective Treatment Pain: Pain unchanged, Comment (patient currently receiving APAP 1000 mg BID, as well as disease modifying treatment of Xeljanz; patient still with pain and discomfort with movement or manipulation of joints; patient has not tolerated hydrocodone as developed pruritis but not rash) Anxiety: Moderate (4-6), Comment (Menstruates anxiety more related to her dementia diagnosis, with escalation through the day most prominent in the late afternoon early evening. She though is easily redirected. She does have alprazolam as needed for escalating anxiety, she required only 5 doses in February, and 1 dose in March.) Sleep: Sleeps well Constipation: No Feelings of wellbeing/Perceived Quality of Life: Fair, Acceptable, Worsening Performance Status: Patient no longer able to pivot or weight-bear, she is a Florian lift into the wheelchair. She does have upper arm strength though enough to wheel herself around the adult family home. She is able to self feed. She is dependent for bathing. She is incontinent of both bowel and bladder. FAST 7A - Palliative Care Discussion: Has spoke with son, to see her decline. It is getting quite clear out of her setting as her dementia has progressed in her functional status is declining. It often triggers severe anxiety and distress for patient. Goals remain to focus on quality of life, she is well supported in her current setting.She does have a POLST with DNAR, limited interventions- with goal to focus on avoiding hospitalization. Palliative care providing support to be able to deliver as much of health care/treatment in home as possible. Results - Lab Results Lab results reviewed: Yes Lab and Imaging Results: labs drawn right antecubital for Dr. Jack [facility] Impression and Recommendations - Palliative Care Impression: This is an 84-year-old woman with progressing dementia with neuropsychiatric behavoirs of anxiety and intermittent agitation, and underlying rheumatoid arthritis impacting her quality of life. She has had both cognitive and functional decline, her needs are well met in her current setting. Palliative care continues to provide support for quality of life issues and meeting health care needs. Recommendations/Counseling Done: 1. Rheumatoid arthritis. Labs drawn for Dr. Jack turkish rubber, and delivered to [employer]. Patient's pain continues to be challenging in the context of her dementia. Will trial tramadol 50 mg every four hours as needed, looking for relief and SE of pruritis. RX provided, CG to evaluate and report back to palliative care. Exam done. 2. Dementia with behavioral disturbances. Evaluation of patterns of behavior and response to quietiepine, and behavioral approaches by staff to be expanded, patient care needs being met. 3. Cough. Patient presents with symptoms of viral illness, will hold flu shot until next week. Patient is improving at this point, responding to comfort measures of guafinesen and pushing fluids. 4. Advanced care planning. POLST in place as DNAR, limited interventions, goal for focus on quality of life. DPOA is gladys Pichardo [phone]. Patient with ongoing cognitive decline and functional decline, no acute changes these last few months, but goals remain or minimize distress and focus on quality of life issues. Time Spent: 45 minutesWith greater than 50% of this done in counseling and coordination of care with adult family home on her, and anticipatory guidance with son, and addressing pain management.
== END 2019-04-27 10:16 | disposition home or self-care (01) ==
LOC: PC 10:15
PROVIDERS: ATTEND Nurse Practitioner Adult Health
DX: Z51.5 Encounter for palliative care (principal); M06.9 Rheumatoid arthritis, unspecified; F03.91 Unspecified dementia, unspecified severity, with behavioral disturbance; F05 Delirium due to known physiological condition; R05 Cough; F41.9 Anxiety disorder, unspecified; Z79.899 Other long term (current) drug therapy; Z99.3 Dependence on wheelchair; Z66 Do not resuscitate

== ENCOUNTER 2019-10-11 11:45 | Outpatient (CLI) | payer MEDICARE, OTHER, MEDICAID | END 2019-10-11 23:59 | disposition home or self-care (01) | LOC: LAB.R 11:45 | PROVIDERS: ATTEND Nurse Practitioner Adult Health | DX: Z20.828 Contact with and (suspected) exposure to other viral communicable diseases (principal) | CPT/HCPCS: 81599 ==

== ENCOUNTER 2020-04-18 07:00 | Outpatient (CLI) | payer MEDICARE, OTHER, MEDICAID ==
[2020-04-18 13:31] LABS: BASOPHILS % (AUTO) 0.4 %; EOSINOPHILS # (AUTO) 0.3 10^3/uL (0.0-0.7); HGB - HEMOGLOBIN 12.9 g/dL (12.0-16.0); LYMPHOCYTES # (AUTO) 1.4 10^3/uL (1.5-3.5); MEAN CORPUSCULAR HEMOGLOBIN 32.6 pg (27.0-31.0); MEAN CORPUSCULAR HGB CONC 33.3 g/dL (32.0-36.0); MEAN CORPUSCULAR VOLUME 97.7 fL (81.0-99.0); MEAN PLATELET VOLUME 10.9 fL (7.9-10.8); MONOCYTES # (AUTO) 0.9 10^3/uL (0.0-1.0); MONOCYTES % (AUTO) 9.3 %; NEUTROPHILS # (AUTO) 6.8 10^3/uL (1.5-6.6); NEUTROPHILS % (AUTO) 71.9 %; PLT - PLATELET COUNT 379 10^3/uL (130-450); RED BLOOD COUNT 3.96 10^6/uL (4.20-5.40); RED CELL DISTRIBUTION WIDTH 13.7 % (12.0-15.0); WHITE BLOOD COUNT 9.5 x10^3/uL (4.8-10.8)
[2020-04-18 13:53] LABS: ALBUMIN 3.3 g/dL (3.2-5.5); ALBUMIN/GLOBULIN RATIO 0.8 (1.0-2.2); BILIRUBIN,TOTAL 0.5 mg/dL (0.2-1.0); CALCIUM 9.4 mg/dL (8.5-10.3); CREATININE 0.8 mg/dL (0.4-1.0); TOTAL PROTEIN 7.2 g/dL (6.7-8.2)
== END 2020-04-18 23:59 | disposition home or self-care (01) ==
LOC: LAB.R 07:00
PROVIDERS: ATTEND Internal Medicine Rheumatology
DX: D63.8 Anemia in other chronic diseases classified elsewhere (principal); Z79.899 Other long term (current) drug therapy; M06.9 Rheumatoid arthritis, unspecified
CPT/HCPCS: 80053; 82728; 83540; 84466; 85025; 85651

== ENCOUNTER 2020-04-18 11:45 | Outpatient (CLI) | payer MEDICARE, OTHER, MEDICAID ==
--- NOTE | 2020-04-18 17:37 | CONSULTATION NOTE ---
Palliative Care Follow Up - Referral Referring Provider: Dr. Rosas Wells Time of Visit: Referral setting: Adult Family Home Referral Reason: RA/Dementia with behavioral disturbances/Pica behaviors - Information Sources Records reviewed: Previous records reviewed History/Review of Systems obtained from: Caregiver (Marielena EVERETT hearing aid fitter/CG Ricardo) Exam limitations: Clinical condition (patient with severe dementia unable to participate in ROS) - History of Present Illness Update Brief HPI Update: This is an 85-year-old woman with progressive dementia, and underlying rheumatoid arthritis. She is recently seen her percussion instrument tuner, he is looking at changing up her treatment from Xeljanz to Rinvoq. Patient has been functionally declining, with increased pain and discomfort, mostly noted in her right knee, as well as her left hand. Patient is unable to describe or recall pain, but on examination she is tender to touch, does demonstrate pain behaviors. They are no longer able to have her weight-bear, she is a Florian lift. Unfortunately during the pandemic, she has been mostly bedbound her recliner in her room in her recliner, as it is hard to socially distance in the context of her dementia and behaviors. She has been on management of acetaminophen 1000 mg twice a day, they have been using the tramadol intermittently about 5 days out of March. Patient does not admit to pain, or say yes when offered pain medication, caregiver/adult family home hearing aid fitter Carmen, feels like they could do a better manage.. When they do use the tramadol, she does get some sedation, but also relief. Patient also has behavioral disturbances, these are demonstrated by increased anxiety, including sundowning pattern. They have used intermittently the alprazolam, though she has not needed it more than once this month. She is easily redirected, she does demonstrate some behaviors consistent with pseudobulbar affect. When asked the question she burst out laughing, she is able to say a few words, was able to comment on the TV show she was watching about animal rescue. She is quite pleasant, makes good eye contact, she is on quetiapine 25 mg a.m., 50 mg afternoon and evening, this does appear to be managing her behaviors and acceptable behavior. She does not demonstrate any signs or symptoms of sedation. She has remained weight stable, the biggest concern regarding her dementia, is her behaviors around her oral fixation. She is chewing on sheets, straws, metal straws, eating cups. They have identified this as "pica", patient labs were drawn to rule out any iron deficiency. Past Medical History: Patient's past medical history includes advanced dementia, RA, history of C. difficile, anxiety, paranoid behavior, [place] stent with placement in 2014, history of breast cancer with lumpectomy and lymph nodes of her left arm, thyroid disease, tinnitus, hypertension, hyperlipidemia Social History - Living Situation Living arrangement: Adult family home Support System: Patient was originally brought to the adult family home, with her spouse. Her spouse is since on hospice. Her son is very involved, checks on her frequently by phone, now unfortunately with limitations of pandemic, has not been able to see her on a regular basis. 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 She is currently they are under Medicaid, and is well liked and attended to by the staff. Medications/Allergies - Medications Home Medications: Ambulatory Orders Medication Instructions Recorded Confirmed Folic Acid 1 mg PO DAILY 10/26/14 04/18/20 Levothyroxine [Synthroid] 150 mcg PO QDAC 10/26/14 04/18/20 Simvastatin 10 mg PO QPM 10/26/14 04/18/20 Acetaminophen [Pain Relief] 1,000 mg ORAL BID 01/18/15 04/18/20 Aspirin [Low Dose Aspirin EC] 81 mg PO DAILY 04/12/15 04/18/20 Memantine HCl [Namenda] 5 mg PO DAILY 04/12/15 04/18/20 Metoprolol Tartrate 25 mg PO BID 04/12/15 04/18/20 ALPRAZolam [Xanax] 1 tab PO BID PRN 08/16/15 04/18/20 Senna [Senokot] 8.6 mg PO DAILY PRN 03/03/17 04/18/20 Loperamide HCl [Loperamide] 2 mg PO PRN PRN MDD 16 mg 09/03/17 04/18/20 QUEtiapine [SEROquel] 50 mg PO .1400.199909/03/17 04/18/20 guaiFENesin [Child Mucinex Chest 10 ml PO Q4H PRN 09/03/17 04/18/20 Congestion] Multivitamin/Iron/Folic Acid 1 tab PO DAILY 09/11/17 04/18/20 [Centrum Women Tablet] Ondansetron [Zuplenz] 4 mg PO Q6H PRN 09/11/17 04/18/20 Saccharomyces Boulardii [Florastor] 250 mg PO BID 10/28/17 04/18/20 Quetiapine Fumarate 25 mg PO .0800 04/30/18 04/18/20 Acetaminophen 1,000 mg PO TID PRN MDD NTE 3000mg 10/12/18 04/18/20 from all sources traMADol [Ultram] 50 mg PO Q4HR PRN 04/28/19 04/18/20 - Allergies Allergies/Adverse Reactions: Allergies Allergy/AdvReac Type Severity Reaction Status Date / Time ketamine AdvReac Unknown Verified 10/26/14 16:44 Review of Systems - Constitutional Constitutional: reports: Fatigue, Weight stable. denies: Fever, Chills - Ears, Nose & Throat Ears, Nose & Throat: denies: Dry mouth - Respiratory Respiratory: denies: SOB at rest - Gastrointestinal Gastrointestinal: reports: Good appetite, Other (shovels food and choking). denies: Constipation - Genitourinary Genitourinary: reports: Incontinence - Musculoskeletal Musculoskeletal: reports: Stiffness, Limited range of motion (developing contractures elbows/hips/knees), Muscle weakness, Joint swelling (right knww), Transfer issues (using florian lift for transfers), Other (up in recliner to eat and for aspiration precautions; no longer in w/c as with behaviors and need for precautions can't keep her from touching people/in their space) - Integumentary Integumentary: reports: Dryness - Neurological Neurological: reports: General weakness, Memory problems (less verbal; few words; laughs inappropriately) - Psychiatric Psychiatric: reports: Delusions, Hallucinations - Endocrine Endocrine: reports: Intolerance to cold (keeps blanket up on her; gets sweaty) - All Other Systems All Other Systems: reports: Other (limited with dementia/setting) Physical Exam - Vital Signs Temperature: 96.8 C Pulse Rate: 86 Respiratory Rate: 18 O2 Saturation: 99 (ra @ rest) Blood Pressure: 102/68 - Physical Exam General Appearance: positive: No acute distress, Alert Eyes Bilateral: positive: Normal inspection ENT: positive: No signs of dehydration Neck: positive: Nml inspection, Trachea midline Cardiovascular: positive: Regular rate & rhythm Respiratory: positive: No respiratory distress, Diminished in bases. negative: Wheezes, Rales, Rhonchi Abdomen: positive: Non-tender, Soft, Nml bowel sounds, Obese Skin: positive: Pallor. negative: Pressure wound Extremities: positive: Joint swelling (right knee; left hand). negative: Full ROM (contractures elbows; knees ; hips), No pedal edema, Pedal edema Neurologic/Psychiatric: positive: Mood/affect nml, Disoriented to person, Disoriented to place, Disoriented to time, Other (watching nature rescue show; able to comment socially on what was happening with few strung together words). negative: Depressed mood/affect (presents with pseudobulbular effect) Palliative Care - POLST Patient has POLST: Yes POLST Status: DNR, Selective Treatment Pain: Pain worsening, Comment (See HPI) Tiredness/Fatigue: Moderate (4-6) Drowsiness/Sedation: None Performance Status: Patient is mostly bedbound, they do sometimes Florian lift into the recliner. Occasionally she still goes to the wheelchair, but has to be supervised. She is dependent on all her ADLs, she can some but does need to be supervised as she "shuffles" and has choking. Results - Lab Results Lab and Imaging Results: Patient's CHEM panel without abnormalities other than BUN 27, creatinine 0.8, GFR 69, iron studies were normal iron 38, TIBC 353, percent of saturation was low at 11%, transferrin 252, ferritin 33.3. Patient's CBC was within normal limits, with WBC 9.5, hemoglobin 12.9, hematocrit 38.7, neutrophils 6.8, ESR was 52 Labs were drawn for left hand [facility] Impression and Recommendations - Palliative Care Impression: This is an 85-year-old woman with progressing dementia, with neuropsychiatric behaviors of dementia, intermittent agitation, delusions, and hallucinations. She does have underlying rheumatoid arthritis impacting her quality of life and discomfort, is being well supported in her current setting. Palliative care continue provide support for quality of life issues and coordination of care. Recommendations/Counseling Done: 1. Rheumatoid arthritis. Labs are drawn per Dr. Jack percussion instrument tuner, delivered to [facility]. Patient does have pruritus with hydrocodone, staff do perceive intermittent tramadol does give her relief. Counseling with adult family home hearing aid fitter, they are going to work more on reading patient's pain behaviors, as she is unable with her dementia to be able to communicate this. Carmen will let me know if it does feel appropriate to schedule medication for better pain control. My understanding is patient will be starting on new RA drug, also can evaluate response. 2. Dementia with behavioral disturbances. Patient is having some increased behaviors around oral fixation, they are working on supporting patient and balancing that with safety. Patient does seem appropriate on her current dosing of quetiapine, they have not needed to use alprazolam more than a few times a month. At this point in time we will leave program as is. 3. Advanced care planning. Patient continues to decline functionally and cognitively, has not had any acute illnesses, hospitalizations, or weight loss. Patient is appropriately managed, goals remain to focus on comfort, minimize distress for patient, and when appropriate transition for hospice support. Time Spent: 30 minutes greater than 50% of this time was spent in coordination of care, counseling with staff, and evaluating current treatment plan. We will send labs to Dr. Jack.
== END 2020-04-18 11:46 | disposition home or self-care (01) ==
LOC: PC 11:45
PROVIDERS: ATTEND Nurse Practitioner Adult Health
DX: Z51.5 Encounter for palliative care (principal); F03.91 Unspecified dementia, unspecified severity, with behavioral disturbance; M06.9 Rheumatoid arthritis, unspecified; Z79.899 Other long term (current) drug therapy; Z74.01 Bed confinement status; Z66 Do not resuscitate
CPT/HCPCS: 99348

== ENCOUNTER 2020-06-12 13:00 | Outpatient (CLI) | payer MEDICARE, OTHER, MEDICAID ==
--- NOTE | 2020-06-12 15:08 | CONSULTATION NOTE ---
Palliative Care Follow Up - Referral Referring Provider: Dr. 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 Her underlying issues are also attributed to her rheumatoid arthritis, she has been changed to Rinvoq, but unfortunately is chewing her medication as a consequence of her dementia. She has been having increased pain, though she is unable to express this. She does often curl up in the position, she does have both hip and knee contractures now, as well as the beginning of left upper extremity elbow and shoulder contracture. She is tender to palpation over the joint areas, and has been needing increased tramadol averaging about 2 a day. She has long-term been on acetaminophen 1000 mg twice daily, does not appear to be any longer effective. She has had some weird behaviors of chewing on sheets, had ruled out any kind of Pica, labs were normal. Staff is noted when she receives the tramadol she has less of this, suspect it may be related to pain behaviors. Patient has known behavioral disturbances, with history of hallucinations, behavior outbursts, and sometimes agitation. She is always quite pleasant in conversation, she does have demonstrate some behaviors consistent with pseudobulbar affect. She likes to watch TV shows, she makes good eye contact, she is only able to speak a few words and she is currently on quetiapine with managing her behaviors. She does intermittently needs alprazolam but this has decreased. Her other identified problem has been constipation, this is improved since started MiraLAX and senna daily. She has been pocketing her food, I did have her drink some water, she did hold it in her mouth for a long period of time. They are starting to feed her, they are getting her up in the chair, she still has some mild choking, but when can control the environment does do better. Unfortunately continues to chew her pills despite multiple strategies to avoid this Past Medical History: Advanced dementia, RA, history of C. difficile, anxiety, paranoid behavior, MA stent with placement 2014, history of breast cancer with lumpectomy and lymph nodes of left arm, thyroid disease, tinnitus, hypertension, hyperlipidemia Social History - Living Situation Living arrangement: Adult family home Support System: Patient was originally brought to the adult family home with her spouse, her spouse has since passed on hospice. Her son is very involved, checks frequently by phone but unfortunately the limitations and pandemic has not been able to see her on a regular basis. 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 She is currently at the adult family home under Medicaid, is well liked and attended to by the staff. Medications/Allergies - Medications Home Medications: Ambulatory Orders Medication Instructions Recorded Confirmed Folic Acid 1 mg PO DAILY 10/26/14 06/12/20 Levothyroxine [Synthroid] 150 mcg PO QDAC 10/26/14 06/12/20 Simvastatin 10 mg PO QPM 10/26/14 06/12/20 Aspirin [Low Dose Aspirin EC] 81 mg PO DAILY 04/12/15 06/12/20 Memantine HCl [Namenda] 5 mg PO DAILY 04/12/15 06/12/20 Metoprolol Tartrate 25 mg PO BID 04/12/15 06/12/20 ALPRAZolam [Xanax] 1 tab PO BID PRN 08/16/15 06/12/20 Senna [Senokot] 8.6 mg PO DAILY 03/03/17 06/12/20 Loperamide HCl [Loperamide] 2 mg PO PRN PRN MDD 16 mg 09/03/17 06/12/20 QUEtiapine [SEROquel] 50 mg PO .1400.199909/03/17 06/12/20 guaiFENesin [Child Mucinex Chest 10 ml PO Q4H PRN 09/03/17 06/12/20 Congestion] Multivitamin/Iron/Folic Acid 1 tab PO DAILY 09/11/17 06/12/20 [Centrum Women Tablet] Ondansetron [Zuplenz] 4 mg PO Q6H PRN 09/11/17 06/12/20 Saccharomyces Boulardii [Florastor] 250 mg PO BID 10/28/17 06/12/20 Quetiapine Fumarate 25 mg PO .0800 04/30/18 06/12/20 Acetaminophen 1,000 mg PO TID PRN MDD NTE 3000mg 10/12/18 06/12/20 from all sources traMADol [Ultram] 50 mg PO Q4HR PRN 04/28/19 06/12/20 polyethylene glycoL 3350 [Miralax] 8.5 mg PO DAILY 06/12/20 06/12/20 traMADol [Ultram] 50 mg PO BID 06/12/20 06/12/20 - Allergies Allergies/Adverse Reactions: Allergies Allergy/AdvReac Type Severity Reaction Status Date / Time ketamine AdvReac Unknown Verified 10/26/14 16:44 Review of Systems - Constitutional Constitutional: reports: Fatigue, Weight stable. denies: Fever, Chills - Eyes Eyes: reports: Vision loss - Ears, Nose & Throat Ears, Nose & Throat: reports: Hearing loss - Respiratory Respiratory: reports: Cough (with eating). denies: SOB at rest - Gastrointestinal Gastrointestinal: reports: Good appetite. denies: Abdominal pain, Constipation (improved going daily) - Genitourinary Genitourinary: reports: Incontinence - Musculoskeletal Musculoskeletal: reports: Muscle pain, Back pain, Muscle aches, Stiffness, Limited range of motion, Muscle weakness, Transfer issues (uses florian lift for transfers) - Integumentary Integumentary: reports: Dryness - Neurological Neurological: reports: General weakness, Memory problems - Psychiatric Psychiatric: reports: Depression, Anxiety, Delusions, Aggitation (fluctuating) - Endocrine Endocrine: reports: Hypothyroidism - All Other Systems All Other Systems: reports: Reviewed and negative Physical Exam - Vital Signs Temperature: 96.9 C Pulse Rate: 65 Respiratory Rate: 16 O2 Saturation: 95 (ra @ rest) Blood Pressure: 112/62 - Physical Exam General Appearance: positive: No acute distress, Alert Eyes Bilateral: positive: Normal inspection ENT: positive: No signs of dehydration Neck: positive: Trachea midline Cardiovascular: positive: Regular rate & rhythm Respiratory: positive: No respiratory distress, Breath sounds nml, Diminished in bases Abdomen: positive: Non-tender, Soft Skin: positive: Pallor, Dryness, Pressure wound (intermittent in gluteal fold) Extremities: positive: No pedal edema, Other (contracted knees/hips/left side) Neurologic/Psychiatric: positive: Mood/affect nml, Disoriented to person, Disoriented to place, Disoriented to time, Weakness Palliative Care - POLST Patient has POLST: Yes POLST Status: DNR, Selective Treatment Pain: Pain worsening, Comment (staff note pain behaviors; patient always denies but less behaviors noted with tramadol) Constipation: Yes, Opoid induced, Managed Performance Status: Patient has had both functional and cognitive decline over the last few months and more acutely over the last few weeks, has been mostly room bound secondary to Covid restrictions, is no longer in her wheelchair, but a Florian lift to the recliner. - Palliative Care Discussion: Spoke with his son Reyes, regarding my recommendation to transition to hospice. Did discuss with him Dr. Jack's conversation about stopping Rinvoq and possible transition for Orencia. Patient is high risk for aspiration pneumonia, would be concerned about further immunosuppression for her, as she does continue to decline. Patient most likely does meet the criteria as far as would not be surprised if patient continues to worsen and prognosis is most likely less than 6 months. She is not imminently transitioning, but would benefit from support of hospice team particular in the setting of the adult family home. Son's goals are for comfort, he has not been able to see her, so is only marginally aware of her fragility and decline, other than what caregivers report as well as my own updates. His father was on hospice, and passed at the adult family home as well, so is aware of the role and hospice criteria. Her sister is here for holiday, he will discuss this with her, and let me know after . I have spoken with the hospice medical records analyst, will [place] back and update Dr. Jack as well when decision is made Impression and Recommendations - Palliative Care Impression: This is a 85-year-old woman with progression of her dementia with neuropsychiatric behaviors of intermittent agitation, delusions, and hallucinations. She does have underlying rheumatoid arthritis impacting her quality of life and appears to be having increased pain behaviors. She is well supported in her current setting, but continues with both functional and cognitive decline. Palliative care continue provide support for quality of life issues and coordination of care. Recommendations/Counseling Done: 1. Rheumatoid arthritis. Dr. Jack shampoo technician, have left message regarding patient's chewing of her new medication, spoke with him today, can offer Orencia, though this is an injection and comes with concerns for immunosuppression and logistics of injection in setting of [facility]. Patient is currently on intermittent tramadol, averaging about 2 times a day, with decreased pain behaviors noted. Patient does draw up in position, guards, and has worsening contractures. She is tender on palpation over joints, though minimal swelling. Does not appear acetaminophen is effective at this point, will discontinue to improve pill burden, and start scheduled tramadol in the morning and at 5:00. She will also have her as needed dosing available. 2. Constipation, opioid induced. Patient has been started on daily scheduled senna and half capful of MiraLAX with good results, patient is having a bowel m ovement daily. Patient often gets impacted and this is improved. 3. Dementia with behavioral disturbance. Patient is having increased behaviors around oral fixation, they do feel some of this may have been pain behaviors, is improved with increased use of tramadol. At this point no changes made in her quetiapine or alprazolam. 4. Dysphagia. Patient fluctuates with this, does better if fed and positioned for feeding. Did observe patient drink water, she did hold it in her mouth for long period of time, she does have some choking afterwards. But able to clear her oral secretions. Patient brenda at high risk for aspiration and subsequentially pneumonia. 5. Advanced care planning. Patient continues to decline both functionally and cognitively, has not had any acute infections, hospitalizations or weight loss. Goal is to appropriately manage with focus on comfort, minimize distress for patient, and when appropriate transition to hospice support. Did speak with hospice medical records analyst Dr. Benitez, would accept for hospice admit given patient functional decline, worsening FAST score, and if goals of care align. Time Spent: 45 minutes with greater than 50% of this done on coordination of care with adult family home caregivers, follow-up with son with goals of care conversation, review of symptom management and neuropsychiatric behavior management. Coordination of care with Dr. Jack and Dr. Benitez medical administrative specialist
== END 2020-06-12 13:01 | disposition home or self-care (01) ==
LOC: PC 13:00
PROVIDERS: ATTEND Nurse Practitioner Adult Health
DX: Z51.5 Encounter for palliative care (principal); M06.9 Rheumatoid arthritis, unspecified; K59.03 Drug induced constipation; T40.2X5A Adverse effect of other opioids, initial encounter; F03.91 Unspecified dementia, unspecified severity, with behavioral disturbance; R13.10 Dysphagia, unspecified; M24.559 Contracture, unspecified hip; M24.569 Contracture, unspecified knee; M24.522 Contracture, left elbow; M24.512 Contracture, left shoulder; Z66 Do not resuscitate
CPT/HCPCS: 99349